=== PATIENT | male | born 1950 | race Caucasian/White ===

== ENCOUNTER → 2024-03-10 13:29 | Outpatient (REF) | payer MEDICARE, SELFPAY ==
[2024-03-10 14:36] LABS: % Eosinophils 3.1 % (0-6); % Immature Granulocytes 0.3 % (0-0.5); % Lymphocytes 20.9 % (20.5-51.1); % Monocytes 14.1 % (1.7-9.3); % Neutrophils 60.6 % (42.2-75.2); Absolute Basophils 0.1 10^3/uL (0-0.2); Absolute Eosinophils 0.2 10^3/uL (0-0.7); Absolute Lymphocytes 1.3 10^3/uL (1.2-3.4); Absolute Monocytes 0.9 10^3/uL (0.1-0.6); Absolute Neutrophils 3.7 10^3/uL (1.4-6.5); Hematocrit 39.2 % (39.0-52.0); Hemoglobin 13.7 g/dL (13.0-18.0); Mean Corp Hgb Conc. 34.9 g/dL (33.0-37.0); Mean Corpuscular Hgb 30.6 pg (27.0-31.0); Mean Corpuscular Volume 87.7 fL (80.0-94.0); Mean Platelet Volume 9.1 fL (7.4-10.4); Nucleated Red Blood Cells % 0 % (-); Platelet Count 265 10^3/uL (130-400); Red Blood Cell Count 4.47 10^6/uL (4.70-6.10); Red Cell Dist. Width 13.1 % (11.5-14.5); White Blood Cell Count 6.1 10^3/uL (4.8-10.8)
[2024-03-10 15:13] LABS: ALT (SGPT) 26 U/L (0-50); AST (SGOT) 38 U/L (17-59); Albumin 4.8 g/dl (3.5-5.0); Alkaline Phosphatase 69 U/L (38-126); Blood Urea Nitrogen 27 mg/dl (9-20); Calcium 9.7 mg/dl (8.4-10.2); Carbon Dioxide 26 mmol/L (22-30); Chloride 95 mmol/L (98-107); Glucose 89 mg/dl (70-99); Potassium 4.6 mmol/L (3.5-5.1); Sodium 128 mmol/L (135-145); Total Bilirubin 0.7 mg/dl (0.2-1.3); Total Protein 7.9 g/dl (6.3-8.2); eGFR > 60.00
[2024-03-14 13:22] LABS: TSH 1.55 uIU/ml (0.47-4.68)
== END ==
LOC: REG 13:29
PROVIDERS: ATTENDING PHYSICIAN Internal Medicine Hematology & Oncology; FAMILY PHYSICIAN Family Medicine
DX: C34.11 Malignant neoplasm of upper lobe, right bronchus or lung (principal); J38.7 Other diseases of larynx
CPT/HCPCS: 36415; 80053; 84443; 85025

== ENCOUNTER → 2024-03-16 09:06 | Outpatient (REF) | payer MEDICARE, SELFPAY | LOC: RAD 09:06 | PROVIDERS: ATTENDING PHYSICIAN Internal Medicine Hematology & Oncology; FAMILY PHYSICIAN Family Medicine | DX: C34.11 Malignant neoplasm of upper lobe, right bronchus or lung (principal); J38.7 Other diseases of larynx | CPT/HCPCS: 71260; Q9967 ==

== ENCOUNTER → 2024-03-31 11:15 | Outpatient (REF) | payer MEDICARE, SELFPAY | LOC: REG 11:15 | PROVIDERS: ATTENDING PHYSICIAN Nurse Practitioner Family | DX: J44.9 Chronic obstructive pulmonary disease, unspecified (principal) | CPT/HCPCS: 71046; 87070; 87205 ==

== ENCOUNTER → 2024-04-03 14:04 | Outpatient (REF) | payer MEDICARE, SELFPAY ==
[2024-04-03 14:33] LABS: % Basophils 0.9 % (0-2); % Immature Granulocytes 0.3 % (0-0.5); % Lymphocytes 17.9 % (20.5-51.1); % Monocytes 11.7 % (1.7-9.3); % Neutrophils 67.2 % (42.2-75.2); Absolute Basophils 0.1 10^3/uL (0-0.2); Absolute Eosinophils 0.1 10^3/uL (0-0.7); Absolute Lymphocytes 1.2 10^3/uL (1.2-3.4); Absolute Monocytes 0.8 10^3/uL (0.1-0.6); Absolute Neutrophils 4.7 10^3/uL (1.4-6.5); Hematocrit 40.2 % (39.0-52.0); Mean Corp Hgb Conc. 34.8 g/dL (33.0-37.0); Mean Corpuscular Hgb 31.2 pg (27.0-31.0); Mean Corpuscular Volume 89.5 fL (80.0-94.0); Mean Platelet Volume 9.1 fL (7.4-10.4); Nucleated Red Blood Cells % 0 % (-); Platelet Count 199 10^3/uL (130-400); Red Blood Cell Count 4.49 10^6/uL (4.70-6.10); Red Cell Dist. Width 13.7 % (11.5-14.5); White Blood Cell Count 6.9 10^3/uL (4.8-10.8)
[2024-04-03 15:04] LABS: ALT (SGPT) 22 U/L (0-50); AST (SGOT) 27 U/L (17-59); Albumin 4.3 g/dl (3.5-5.0); Alkaline Phosphatase 77 U/L (38-126); Blood Urea Nitrogen 25 mg/dl (9-20); Calcium 9.5 mg/dl (8.4-10.2); Carbon Dioxide 25 mmol/L (22-30); Chloride 100 mmol/L (98-107); Glucose 96 mg/dl (70-99); Potassium 4.4 mmol/L (3.5-5.1); Sodium 133 mmol/L (135-145); Total Bilirubin 0.4 mg/dl (0.2-1.3); Total Protein 7.1 g/dl (6.3-8.2); eGFR > 60.00
== END ==
LOC: REG 14:04
PROVIDERS: ATTENDING PHYSICIAN Internal Medicine Hematology & Oncology; FAMILY PHYSICIAN Family Medicine
DX: C34.11 Malignant neoplasm of upper lobe, right bronchus or lung (principal); J38.7 Other diseases of larynx
CPT/HCPCS: 36415; 80053; 85025

== ENCOUNTER 2024-06-18 09:46 | Inpatient (IN) | payer MEDICARE, SELFPAY ==
[2024-06-18] VITALS (10 sets, daily range): BP systolic 86–132; BP diastolic 51–75; BMI 16.7
--- NOTE | 2024-06-18 07:30 | ED.GENMED ---
History of Present Illness
General
Chief Complaint: Change in Mental Status
Source: patient and ambulance crew
Exam Limitations: none
Time Seen by Provider: 06/18/24 07:30
Nursing documentation reviewed up to this point in time: agreed with
History of Present Illness
History of Present Illness:
73 yo male w h/o COPD, Home O2 prn, smoker, BPH, states he's not sure why he's here.
Pt significant other Amy is here: states pt started c/o chest pain 4 days ago and 'something hurt behind his right ear.' Has been complaining for a while about congestion in sinuses and chest with more than usual cough. 3 days ago found pt asleep
(unusual) has been 'very little awake time since.' Sleeping a lot. Pretty out of it compared to his usual.
Pulse ox at home was 80-85 as low as 70's today.
Typically 90% he uses 3L typically
Poor appetite past 3 days.
Lethargic, change in mental states
Past History
Past History
ED Past Medical History: COPD (Home O2) and Psychiatric (anxiety)
Social History
Tobacco: Smoker
Drug: None
Personal: Other ( )
Family History
Family History: Other
Review of Systems
Review of Systems
Allergies reviewed?: Yes
Unable to obtain full review of systems at this time due to: due to acuity
Other source history: family and ambulance crew
All Other Systems: ROS reviewed and negative except as documented in HPI and ROS
Constitutional: Reports fever and fatigue
Respiratory: Reports cough; Denies trouble breathing
Cardiac: Denies chest pain, diaphoresis or syncope
ABD/GI: Reports anorexia; Denies abdominal pain, nausea, vomiting or diarrhea
: Denies dysuria, frequency or difficulty voiding
Musculoskeletal: Reports no symptoms
Skin: Reports no symptoms
Neurological: Reports other (more lethargic, change in mental state); Denies dizzy, headache, weakness or numbness
Phy Exam
Physical Exam
Physical Exam:
GENERAL: No acute distress. A&Ox3.
CONSTITUTIONAL: 102.0 Rectal temp
EYES: PERRL, conjunctivae normal
Neck: Supple
ENMT: moist mucus membranes, Pharynx nl
RESPIRATORY: Regular respirations, nonlabored, lungs clear.
CARDIOVASCULAR: Regular rate and rhythm, no murmurs, no rubs.
GI: Soft, nontender, normal BS
MUSCULOSKELETAL: Moves with ease. Well perfused.
SKIN: Warm, dry, pink
PSYCH: Normal mood and affect. Well kept, interactive and appropriate
NEUROLOGIC: Awake, alert and oriented. No focal neurological deficits
Course
Orders/Labs/Results
Orders:
Orders
06/18/24 07:28
Electrocardiogram (*1) Urgent
Reason for Study: Other
Other Reason for Exam: change of mental status
EKG- Treatment ONCE
06/18/24 07:43
CMP [Comprehensive Metabolic Panel] Urgent
Complete Blood Count/With Diff Urgent
Lactic Acid Urgent
Urinalysis Reflex To Culture Urgent
Date Specimen was Collected: 06/18/24
Time Specimen was Collected: 07:28
Urine Microscopic Reflex Cult Urgent
Venous Blood Gas Urgent
%Oxygen/Room Air: 2 L
06/18/24 07:45
Electrocardiogram (*1) Urgent
Reason for Study: Other
Other Reason for Exam: sepsis
EKG- Treatment ONCE
IV Insert/Care/Rem.- Treatment PRN
Straight cath- Treatment ONCE
0.9% Sodium Chloride 1000 ml [Nss] 1,600 ml IV NOW STA
06/18/24 07:46
CR Chest Portable - 1 View Urgent
Comment:
Reason For Exam: SOB, hypoxia, SIRS
Reason Study Needs to be Portable: Patient Unstable
06/18/24 07:47
Acetaminophen [Tylenol/Feverall] 650 mg RECTAL NOW STA
06/18/24 07:52
Procalcitonin Urgent
PCT Algorithmm Indication: Sepsis
06/18/24 07:53
Troponin I Urgent
06/18/24 07:58
Ipratropium/Albuterol Sulfate [Duoneb] 3 ml INH R NOW ONE
06/18/24 08:31
Electrocardiogram (*1) Urgent
Reason for Study: Abnormal EKG
EKG- Treatment ONCE
06/18/24 09:00
CefTRIAXone [Rocephin] 1,000 mg IV NOW STA
06/18/24 09:24
CARDIOLOGY CONSULT Urgent
Consulting Provider: Tevin Mota
Was physician already notified: Yes
Reason for consult: Questionable Brugada
06/18/24 09:28
COVID-19 Antigen Urgent
Source: Nasal Swab
06/18/24 09:32
Troponin I Urgent
06/18/24 09:38
Admit/Transfer Patient As Directed
Co-Sign Provider:
Level of Care: Inpatient admission
Assign to:: Telemetry
Physician / Group: Dr Head
Diagnosis: pneumonia
Reason for Telemetry: Arrhythmia
Date to Stop Telemetry: 06/21/24
Time to Stop Telemetry: 11:00
Reason for Hospitalization: pte p/w pneumonia/sepsis
Expected length of stay greater than two midnights?: Yes
ELOS- Estimated Length of Stay in days: 2
I certify the patient meets the requirements for IP care: Yes
PRN Pain Medication Management As Directed
May give lesser potent ordered pain med per pt: Yes
preference::
Protocol:: Medication orders for pain may be administered in a
manner that supports deferring to patient preference
when the pt is:
- Requesting an ordered lesser potent pain medication.
Least to most potent pain medications are defined
as: acetaminophen < NSAID < tramadol < opioids
(morphine, oxycodone, hydromorphone).
- Requesting a lesser dose of the same medication IF
ORDERED.
- Requesting a less intrusive route of administration
if both routes are prescribed by the provider (PO <
IV).
06/18/24 09:39
Code Status As Directed
Resuscitation Status: Full Code
06/18/24 09:45
0.9% Sodium Chloride 1000 ml [Nss] 1,000 ml IV 85 mls/hr
06/18/24 Lunch
Regular
At Your Request: Full Participation
Doxycycline [Vibramycin] 100 mg PO Q12
06/18/24 10:47
Bisacodyl [Dulcolax] 10 mg RECTAL A32MUNS PRN
Docusate W/Senna [Senokot-S] 1 tablet PO BIDPRN PRN
Polyethylene Glycol Powder [Miralax] 17 grams PO DAILYPRN PRN
06/18/24 10:47
Activity As Directed
Activity Level: Out of Bed-Early Mobility
Vital Signs As Directed
Frequency: Per unit guidelines
DX Deep Vein Thrombosis Video Routine
06/18/24 11:12
Troponin I Urgent
06/18/24 12:00
Acetaminophen [Tylenol] 650 mg PO Q4HPRN PRN
06/18/24 18:00
Enoxaparin Sodium [Lovenox] 40 mg SC QPM
06/19/24 06:00
Basic Metabolic Panel IN AM
Complete Blood Count/With Diff IN AM
Magnesium IN AM
06/19/24 10:00
CefTRIAXone [Rocephin] 1,000 mg IV Q24H
06/21/24 11:00
DC Protocol for Telemetry ONCE
Abnormal Lab Results
06/18/24 06/18/24 06/18/24
07:43 07:52 07:53
WBC 11.5 H 10^3/uL
(4.8-10.8)
RBC 4.42 L 10^6/uL
(4.70-6.10)
Hct 37.9 L %
(39.0-52.0)
Abs Immat Gran (auto) 0.1 H 10^3/uL
(0-0.05)
Absolute Neuts (auto) 8.8 H 10^3/uL
(1.4-6.5)
Absolute Monos (auto) 1.3 H 10^3/uL
(0.1-0.6)
Immature Gran % 1.0 H %
(0-0.5)
Neutrophils % 76.6 H %
(42.2-75.2)
Lymphocytes % 10.5 L %
(20.5-51.1)
Monocytes % 11.5 H %
(1.7-9.3)
VBG pCO2 49 H mmHg
(35-48)
VBG HCO3 28.3 H mmol/L
(22-27)
Sodium 134 L mmol/L
(135-145)
BUN 28 H mg/dl
(9-20)
Glucose 112 H mg/dl
(70-99)
Troponin I 0.046 H* ng/ml
Procalcitonin 0.62 H ng/ml
(0.0-0.25)
Ur Occult Blood Reflex Trace A
(Negative)
Leukocyte Esterase Rfl Trace A
(Negative)
Urine RBC 3-6 A /HPF
(0-2)
Urine Bacteria (Reflex) Few A
(Negative)
Urine Albumin (Reflex) 1+ A
(Neg - Trace)
SARS-CoV-2 Antigen
06/18/24 06/18/24
09:28 09:32
WBC
RBC
Hct
Abs Immat Gran (auto)
Absolute Neuts (auto)
Absolute Monos (auto)
Immature Gran %
Neutrophils %
Lymphocytes %
Monocytes %
VBG pCO2
VBG HCO3
Sodium
BUN
Glucose
Troponin I 0.046 H* ng/ml
Procalcitonin
Ur Occult Blood Reflex
Leukocyte Esterase Rfl
Urine RBC
Urine Bacteria (Reflex)
Urine Albumin (Reflex)
SARS-CoV-2 Antigen Positive A
(Negative)
06/18/24 07:43
06/18/24 07:43
Vital Signs
Initial and Last Documented VS:
Initial Vital Signs
Temp Pulse Resp BP Pulse Ox
98.2 F 69 18 86/57 88
06/18/24 07:40 06/18/24 07:40 06/18/24 07:40 06/18/24 07:40 06/18/24 07:40
Last Documented Vital Signs
Temp Pulse Resp BP Pulse Ox
97.8 F 67 18 92/59 93
06/18/24 11:00 06/18/24 11:00 06/18/24 11:00 06/18/24 11:00 06/18/24 11:10
Structural Engineering Project Manager consulted with Physician
Structural Engineering Project Manager consulted with physician?: Yes
Name of Physician Consulted: Dari
MDM/Problems Addressed
Differential Diagnosis Includes:
Exacerbation COPD, pneumonia, KS
MDM/Problems Addressed:
73 yo male w h/o COPD, Home O2 prn, smoker, BPH, states he's not sure why he's here.
Pt significant other Amy is here: states pt started c/o chest pain 4 days ago and 'something hurt behind his right ear.' Has been complaining for a while about congestion in sinuses and chest with more than usual cough. 3 days ago found pt asleep
(unusual) has been 'very little awake time since.' Sleeping a lot. Pretty out of it compared to his usual.
Pulse ox at home was 80-85 as low as 70's today.
Typically 90% he uses 3L typically
Poor appetite past 3 days.
Lethargic, appropriately responsive, change in mental state. Pulse ox 88% on room air, placed on 3 L nasal cannula which improved his saturations to 93%
Hypotensive 86/57
Temp 102.0 R by this examiner, lethargic but mostly appropriate to questions, a bit confused. Is aware that he keeps forgetting the name of this hospital he's in, 'I can't believe I can't remember that.'
8:15 AM:
After Tylenol, IVFs and O2, pt is now alert, appropriate. states he takes Azithromycin 250 mg M-W- for over a year. He took 5 of them 2 days ago and 2 yesterday for increased cough past week. BP
VBG: no clinically significant abnormality
CBC with mild leukocytosis otherwise unremarkable
CMP: BUN 28 otherwise unremarkable
Troponin 0.046
EKG #1 @ 8:17 am: Possible Brugada pattern
CXR: RUL pneumonia, COPD
9:15 a.m.
PCN allergy listed: pt states 'nothing too bad' but doesn't remember reaction. OK to trial Ceftriaxone
Plan: Admit to Hospitalist, Cardiology consulted and sent copy of EKG. Dr. Mota says since no syncope, the Brugada pattern (similar to 2020 EKG) can be evaluated as an out pt with EP Cardiology.
Repeat Troponin ordered
9:45 a.m.
Covid positive.
Diagnosis: PNA, COPD, Covid
Hospitalist notified of admission.
*Critical Care Note
Total Time (30-74mins, 75-104mins- exclusive of procedures): Not Applicable
ED Attending Note
-
Portions of this chart may have been created with voice recognition software.� Occasional wrong word or��sound alike� substitutions may have occurred due to the inherent limitations of voice recognition software.
Discharge Plan
Departure
Patient Disposition: Admit
Date of Disposition: 06/18/24
Time of Disposition: :24
Presentation/result/management discussed w/ accepting MD/DO: Hospitalist
Condition: Serious
Covid-19: Confirmed COVID-19
Discharge Problem:
Pneumonia, COVID-19
Interventions
Interventions:
*Risk Screen - Suicide Last Done: 06/18/24 12:22
*General Assessment Last Done: 06/18/24 07:34
*Neglect/Abuse Screening Last Done: 06/18/24 07:34
ED- Fall Risk Assessment Last Done: 06/18/24 08:45
*ED COVID-19 Vaccine History Last Done: 06/18/24 12:22
*Nursing Disposition Last Done: 06/18/24 11:05
ED- Neurological Assessment Last Done: 06/18/24 07:34
ED- Cardiac Assessment Last Done: 06/18/24 11:05
Discharge Date and Time
Discharge Date/Time: 06/18/24 10:55
[2024-06-18] MEDS: TYLENOL/FEVERALL 650 MG RECTAL (07:57)
[2024-06-18] MEDS: NSS 1600 ML IV (07:58)
[2024-06-18 07:59] LABS: Venous Blood Gas B.E. 2.1 mmol/L (-4 to +4); Venous Blood Gas HCO3 28.3 mmol/L (22-27); Venous Blood Gas O2 Sat % 60.9 %; Venous Blood Gas pCO2 49 mmHg (35-48); Venous Blood Gas pH 7.37 (7.32-7.43); Venous Blood Gas pO2 33 mmHg (30-50)
[2024-06-18] MEDS: DUONEB 3 ML INH (08:04)
[2024-06-18 08:09] LABS: Urine Albumin 1+ (Neg - Trace); Urine Bilirubin Negative (Negative); Urine Character Clear (Clear); Urine Color Yellow; Urine Glucose Negative (Negative); Urine Ketone Negative (Negative); Urine Leukocyte Trace (Negative); Urine Nitrite Negative (Negative); Urine Occult Blood Trace (Negative); Urine Urobilinogen Negative (Neg - 1+)
[2024-06-18 08:12] LABS: Lactic Acid 1.1 mmol/L (0.7-2.0)
[2024-06-18 08:13] LABS: ALT (SGPT) 20 U/L (0-50); AST (SGOT) 34 U/L (17-59); Albumin 3.9 g/dl (3.5-5.0); Alkaline Phosphatase 68 U/L (38-126); Blood Urea Nitrogen 28 mg/dl (9-20); Calcium 9.2 mg/dl (8.4-10.2); Carbon Dioxide 28 mmol/L (22-30); Chloride 100 mmol/L (98-107); Estimated Creatinine Clearance 57 ml/min; Glucose 112 mg/dl (70-99); Potassium 4.1 mmol/L (3.5-5.1); Sodium 134 mmol/L (135-145); Total Bilirubin 0.6 mg/dl (0.2-1.3); Total Protein 6.4 g/dl (6.3-8.2); eGFR > 60.00
[2024-06-18 08:19] LABS: Hematocrit 37.9 % (39.0-52.0); Hemoglobin 13.4 g/dL (13.0-18.0); Mean Corp Hgb Conc. 35.4 g/dL (33.0-37.0); Mean Corpuscular Hgb 30.3 pg (27.0-31.0); Mean Corpuscular Volume 85.7 fL (80.0-94.0); Mean Platelet Volume 9.8 fL (7.4-10.4); Platelet Count 145 10^3/uL (130-400); Red Blood Cell Count 4.42 10^6/uL (4.70-6.10); Red Cell Dist. Width 13.6 % (11.5-14.5); White Blood Cell Count 11.5 10^3/uL (4.8-10.8)
[2024-06-18 08:27] LABS: Troponin I 0.046 ng/ml
[2024-06-18 08:30] LABS: Procalcitonin 0.62 ng/ml (0.0-0.25)
[2024-06-18 08:51] LABS: % Basophils 0.3 % (0-2); % Eosinophils 0.1 % (0-6); % Lymphocytes 10.5 % (20.5-51.1); % Monocytes 11.5 % (1.7-9.3); % Neutrophils 76.6 % (42.2-75.2); Absolute Immature Granulocytes 0.1 10^3/uL (0-0.05); Absolute Lymphocytes 1.2 10^3/uL (1.2-3.4); Absolute Monocytes 1.3 10^3/uL (0.1-0.6); Absolute Neutrophils 8.8 10^3/uL (1.4-6.5); Nucleated Red Blood Cells % 0 % (-)
[2024-06-18 09:12] LABS: Urine Bacteria Few (Negative)
[2024-06-18] MEDS: ROCEPHIN 1000 MG IV (09:13)
--- NOTE | 2024-06-18 09:42 | HPS.HSE ---
Addendum entered and electronically signed by Jeffery Head MD 06/18/24 19:50:
Discussed with pulm and we started him on Remdesivir. Will check LFT, renal function and CRP in am.
Original Note:
Family Physician
-
Family Physician: Luiz Barrios
Chief Complaint
-
Cough and congestion
History of Present Illness
Patient is 73 years old male history of COPD, chronic respiratory failure on home oxygen, anxiety, came into the hospital with cough and congestion. Patient has been having some congestion in his sinuses associated with cough over the last several
days. Most of information gathered from patient and significant other at bedside. Patient got sick on and he was having some URI symptoms and also was very tired and could not move around due to excessive fatigue. Patient was also having
some mental status change, more lethargic than usual. He was also having dry cough progressively getting worse over the last several days associated with shortness of breath mostly when doing some activities. Denies chest pain. Patient also
having some chills. Patient having decreased appetite. His significant other check his oxygen levels today while he had the oxygen and also taking it off and the oxygen was in the mid 70s and he was getting worse so decided to come to the hospital
for further evaluation. Denies sick contact but they believe that since he had a cataract surgery back in April and May and follow-up visits maybe he contracted something there. Denies nausea vomiting or diarrhea. Patient does use his oxygen at
home with 3 L but family states that is not continuous but mostly when he is on exertion. He is currently on 4 L of oxygen. In the ER, WBC found 11.5, chest x-ray with right upper lobe opacity suspicious for pneumonia and lungs hyperinflated. He
was referred to hospitalist for further evaluation.
Medical History
Past Medical History
Past Medical History: Reports Other
Additional Past Medical History:
COPD
anxiety
active smoker
right upper lobe spiculated nodule
Past Surgical History: Reports Other (IR lung biopsy 03/17/2023)
Social History
Tobacco: Smoker (3 to 5 cigarettes a day, since age 13)
Alcohol: Former
Living: With Family (Significant other)
Family History
Family History: Not pertinent
Allergies / Home Medications
Allergies reflects when Allergies were last updated in [facility].
Home Medications with original date entered in [facility]
Allergy/Medication List:
Allergies
Allergy/AdvReac Type Severity Reaction Status Date / Time
Penicillins Allergy Unknown Verified 05/05/18 22:08
Home Medications
alprazolam 0.25 mg tablet 1 mg PO QID Mental Health/Anxiety 05/05/18
albuterol sulfate 90 mcg/actuation aerosol inhaler (Proventil HFA) 1 puff inhalation Q4HPRN PRN shortness of breath ##1 06/12/21
doxycycline hyclate 100 mg capsule 100 mg PO BID #20 caps 06/12/21
ipratropium 0.5 mg-albuterol 3 mg (2.5 mg base)/3 mL nebulization soln 3 ml inhalation Q4H PRN shortness of breath ##40 06/12/21
azithromycin 250 mg tablet 250 mg PO MOWEFR Infection 03/15/23
buspirone 15 mg PO QID Mental Health/Anxiety 03/15/23
fluticasone fur. 100 mcg-umeclid 62.5 mcg-vilant 25 mcg inhalat.powder (Trelegy Ellipta) 1 inh inhalation Q24H Lung/breathing issues 03/15/23
gabapentin 100 mg capsule 200 mg PO Q8 Pain 03/15/23
umeclidinium 62.5 mcg-vilanterol 25 mcg/actuation powdr for inhalation (Anoro Ellipta) 1 inh inhalation DAILY Lung/breathing issues 03/17/23
Review of Systems
-
A 12 point ROS was completed and negative except as noted: Yes
Physical Exam
Vital Signs
Vital Signs
Temp Pulse Resp BP Pulse Ox
102 F H 65 32 94/60 93
06/18/24 07:44 06/18/24 09:00 06/18/24 07:45 06/18/24 09:00 06/18/24 09:00
Physical exam:
General: Acutely ill
HEENT: Normocephalic, Atraumatic and Moist Mucous Membranes
Respiratory: Decreased breath sounds bilateral; few rales on the right upper lobe; Negative Wheezes, or Rhonchi
Cardiac: Regular Rhythm and S1/S2
GI: Soft, Nontender and Nondistended
Musculoskeletal: No Clubbing, No Cyanosis and No Edema
Neuro: Awake, Alert and Oriented
Psych: Calm
Physical Exam
General: Other
Laboratory Results
-
06/18/24 07:43
06/18/24 07:43
Laboratory Results
Lactic Acid Cancelled 06/18/24 11:45
Total Bilirubin 0.6 mg/dl (0.2-1.3) 06/18/24 07:43
AST 34 U/L (17-59) 06/18/24 07:43
ALT 20 U/L (0-50) 06/18/24 07:43
Alkaline Phosphatase 68 U/L (38-126) 06/18/24 07:43
Troponin I 0.046 ng/ml H* 06/18/24 07:53
Data Reviewed
-
Diagnostic Radiology: Image Personally Visualized and interpreted
Lab Data: Labs Reviewed by me
Impression/Plan
-
IMPRESSION:
Patient 73 years old male with history of COPD on home oxygen, anxiety, presented to the hospital with cough and shortness of breath consistent with pneumonia. Patient at increased risk of morbidity mortality due to his acute presentation and
comorbidities therefore he will need to be treated in the hospital and managed accordingly.
PLAN:
Acute on chronic hypoxic respiratory failure likely related to pneumonia, COVID-19, cannot rule out COPD contributing:
Antibiotics
Steroids
Incentive spirometry
Bronchodilators
PT OT eval
Sepsis due to pneumonia:
SIRS criteria with fever, tachypnea, leukocytosis, mental status changes, and source of pneumonia
Seen and reviewed chest x-ray by myself and agree with opacity in the right upper lobe
IV fluids
IV Rocephin and oral doxycycline
Follow-up cultures
Check sputum culture
Check strep and Legionella
Speech therapy evaluation for swallow eval
PT OT eval
COVID-19:
Start him on IV dexamethasone 6 mg daily
Monitor inflammatory markers, CRP
Incentive spirometry
Droplet and contact precautions
Elevated troponin due to non-ischemic myocardial injury due to worsening hypoxia and sepsis:
monitoring analyst
Trend troponin
No chest pain
Toxic metabolic encephalopathy due to sepsis:
Monitor mental status closely
Brugada syndrome:
Patient incidentally found Brugada but looking back in his records he also had the same EKG pattern of Brugada back in 2020.
Cardiology consulted in the ED
Cardiology felt that since no evidence of syncope at the moment, he can be referred to outpatient EPS for further evaluation.
Keep electrolytes with potassium above 4 and magnesium above 2
Cardiac monitoring for now
COPD:
Bronchodilators in the form of inhalers QID (unable to do Nebs due to Covid unless absolutely required)
No strong need for systemic steroids from COPD perspective but given COVID-19 positive will start him on steroids and will cover both.
Anxiety:
Continue benzodiazepines
Smoker:
Nicotine patch
DVT prophylaxis:
Lovenox 40 mg SQ daily
CODE STATUS:
Full code
Total time spent on today's encounter was 75 minutes which included time spent in counseling the patient/family regarding diagnosis and treatment plan as listed above, goals of care, and symptom management. Case was discussed with nursing staff,
specialists, and care coordinators/case management. All labs and imaging personally reviewed by me. Remainder the time spent in detailed review of previous records, lab data, imaging, and other medical provider documentation.
[2024-06-18 09:51] LABS: COVID-19 Antigen Positive (Negative)
[2024-06-18 10:03] LABS: Troponin I 0.046 ng/ml
--- NOTE | 2024-06-18 11:25 | CON.PUL ---
Consultation
Consultation Request
Date/Time Consultation Requested: 06/18/2024 - 1024
Date/Time Consultation Performed: 06/18/2024 - 1123
Requesting Provider: Dr. Head
Performing Provider: Dr. Gomes
Reason for Consultation: PNA
Medical History
-
Chief Complaint: Confusion with poor PO intake/Chest congestion
History of Present Illness:
73-year-old male active smoker with past medical history of severe COPD,Right upper lobe squamous cell carcinoma (diagnosed via CT-guided biopsy on 03/17/2023), pulmonary cachexia, mild restrictive lung disease (post-BD FVC: 2.45 L/63% via spirometry
from 03/20/2024), history of scarlet fever, anxiety, and history of chronic bronchitis who presents with 3 days of altered mental status and poor PO intake. Initial vitals in the ER showed he was febrile to 98.2 �F, pulse rate 69, respiratory rate
18, BP 86/57 and saturating 88% on room air. He was found to be febrile upon rectal temperature to 102 �F. Initial labs showed WBC 11.5, blood gas pH 7.37, pCO2 49, serum sodium 134, troponin 0.046, procalcitonin 0.62, urinalysis with trace
leukocyte esterase, and COVID-19 antigen was positive. CXR obtained showing right upper lobe airspace opacity suspicious for pneumonia. He was given ceftriaxone, DuoNebs, Tylenol and IVF with 1.6 L of NS 0.9%. He was admitted to the hospitalist
service and pulmonary service consulted for additional management/recommendations.
When I saw the patient he was in bed, at bedside. All questions were answered. He continues to smoke and is not interested in stopping. He is currently on 4 L/min nasal cannula breathing comfortably. He uses 3 L/min at home prn SOB.
According to the , he started having symptoms this past Wednesday with chest pain/chest congestion and symptoms worsened the next day with excessive sleepiness to the point where she could not arouse him from sleep. Today, he feels much better,
is much more awake, talking & answering my questions appropriately. He denies chest pain, headache, abdominal pain, fevers or chills.
Of note patient follows with us in the office with Dr. Brasher, last office visit on 03/20/2024. He follows with COPD and is continuing to smoke. Respiratory symptoms have been worsening over the last 3 months with severe shortness of breath at
times. He has a productive cough with small amounts of white/yellow sputum and has difficulty getting the phlegm out. Also occasional wheezing and chest tightness. He has been using Trelegy and Anoro every other day and using the rescue inhaler 3
times a day and also using chronic azithromycin TIW. 6 MWT done at that office visit showed he needed no oxygen. A 9-day course of prednisone was started at that time to help with his shortness of breath as well as a course of doxycycline.
Pulmonary rehab was discussed however the patient wants to hold off as he was busy with work. He does follow up with oncology for his history of lung squamous of carcinoma. He also has a smoker's cough/chronic bronchitis and he was told his lungs
he continues to smoke he will continue to cough. Last full PFT in June 2023 showing moderate COPD with very severe gas exchange capacity defect (DLco: 24% predicted). Last spirometry on 03/20/2024 showed severe COPD with post-BD FEV1: 39%
predicted/1.09 L.
PMHx: History of RUL lung cancer s/p XRT, history of chronic bronchitis, severe COPD on home oxygen, restrictive lung disease, cachexia, smoker's cough, tobacco use disorder, anxiety, history of scarlet fever, history of pneumonia, history of
chickenpox, history of measles/mumps
PSHx: Right lung biopsy (March 2023)
Past Medical History
Past Medical History: Other (Above as per HPI)
Past Surgical History: Other (Above as per HPI)
Social History
Tobacco: Smoker (0.25 PPD since age 13)
Alcohol: Former
Drug: None
Personal: Other (Significant other)
Living: With Family
Family History
Family History: Cancer (Mother: Metastatic cancer (unknown type))
Allergies / Home Medications
Allergies
Allergy/AdvReac Type Severity Reaction Status Date / Time
Penicillins Allergy Unknown Verified 05/05/18 22:08
Home Medications
�Medication �Instructions �Recorded �Confirmed �Last Taken �Type
alprazolam 0.25 mg tablet 1 mg PO QID Mental Health/Anxiety 05/05/18 03/17/23 03/15/23 History
albuterol sulfate 90 mcg/actuation 1 puff inhalation Q4HPRN PRN 06/12/21 03/15/23 Unknown Rx
aerosol inhaler (Proventil HFA) shortness of breath ##1
doxycycline hyclate 100 mg capsule 100 mg PO BID #20 caps 06/12/21 03/17/23 03/17/23 Rx
ipratropium 0.5 mg-albuterol 3 mg 3 ml inhalation Q4H PRN shortness 06/12/21 03/17/23 Unknown Rx
(2.5 mg base)/3 mL nebulization of breath ##40
soln
azithromycin 250 mg tablet 250 mg PO MOWEFR Infection 03/15/23 03/17/23 03/17/23 History
buspirone 15 mg PO QID Mental Health/Anxiety 03/15/23 03/17/23 03/17/23 History
fluticasone fur. 100 mcg-umeclid 1 inh inhalation Q24H 03/15/23 03/17/23 03/15/23 History
62.5 mcg-vilant 25 mcg Lung/breathing issues
inhalat.powder (Trelegy Ellipta)
gabapentin 100 mg capsule 200 mg PO Q8 Pain 03/15/23 03/17/23 03/17/23 History
umeclidinium 62.5 mcg-vilanterol 1 inh inhalation DAILY 03/17/23 03/17/23 03/17/23 History
25 mcg/actuation powdr for Lung/breathing issues
inhalation (Anoro Ellipta)
Review of Systems
-
History Source: Patient
All other systems: Negative unless noted
Vitals / Labs / Diagnostic Testing
Vital Signs
Temp Pulse Resp BP Pulse Ox
97.8 F 67 18 92/59 93
06/18/24 11:00 06/18/24 11:00 06/18/24 11:00 06/18/24 11:00 06/18/24 11:10
Lab Data
06/18/24 07:43
06/18/24 07:43
Diagnostic Testing:
Physical Exam
-
HEENT: Normocephalic and Anicteric
Cardiovascular: S1/S2
Respiratory: Wheeze (negative), Rales (Negative), Rhonchi (Negative), Non-Labored Respirations and Other (Reduced breath sounds bilaterally)
GI: Soft, Non Distended, Non Tender and Normal Bowel Sounds
Neurology: Awake, Alert and Tremors (Negative)
Skin: Warm and Dry
General: Respiratory Distress (negative), Comfortable, Chills (negative) and Sweats (negative)
Assessment
-
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
via spirometry from 03/20/2024), history of scarlet fever, anxiety, and history of chronic bronchitis who presents with 3 days of altered mental status and poor PO intake. Initial vitals in the ER showed he was febrile to 98.2 �F, pulse rate 69,
respiratory rate 18, BP 86/57 and saturating 88% on room air. He was found to be febrile upon rectal temperature to 102 �F. Initial labs showed WBC 11.5, blood gas pH 7.37, pCO2 49, serum sodium 134, troponin 0.046, procalcitonin 0.62, urinalysis
with trace leukocyte esterase, and COVID-19 antigen was positive. CXR obtained showing right upper lobe airspace opacity suspicious for pneumonia. He was given ceftriaxone, DuoNebs, Tylenol and IVF with 1.6 L of NS 0.9%. He was admitted to the
hospitalist service and pulmonary service consulted for additional management/recommendations.
Chronic conditions PAINT TESTER: History of RUL lung cancer s/p XRT, history of chronic bronchitis, severe COPD on home oxygen, restrictive lung disease, cachexia, smoker's cough, tobacco use disorder, anxiety, history of scarlet fever, history of pneumonia,
history of chickenpox, history of measles/mumps
Impression:
#Suspected right upper lobe pneumonia in the setting of COVID-19 positive status (SARS-Cov-2 antigen positive today)
- Unclear if this is truly a right upper lobe pneumonia or just postradiation changes
#COPD exacerbation due to above
#Emphysema
#Active tobacco use
#Elevated troponin
#Hyponatremia (mild)
#History of RUL non-small cell lung cancer (squamous of carcinoma) s/p XRT - follows with [place]
Plan:
- Continue with antibiotics with ceftriaxone/doxycycline
- If patient's chest congestion and malaise do not improve over the next 1-2 days, reasonable to check CT chest at that time given CXR shows coarsening of right upper lobe which could be postradiation changes
- In the setting of elevated procalcitonin of 0.68 with normal creatinine, it is safe to assume that he does have an active pneumonia
- Continue with albuterol QID with spiriva; prn albuterol for breakthrough symptoms
- Continue Decadron and wean as tolerated � currently on 6mg IV q24hr
- Unclear if patient would improve with Paxlovid versus remdesivir; check inflammatory markers
- Given that patient has severe COPD, it is reasonable to start Remdesivir
- Maintain SpO2 >88-94% with supplemental O2 as needed
- Incentive spirometer encouraged
- Nicotine patch
- Trend troponin level until begins to downtrend
- Trend serum Na level with goal 135-145
- Replete electrolytes with K>4, Mg>2
- Maintain euglycemia with goal BG >100 and <180
- DVT ppx
Patient follows with us in the [facility] office with last visit with Dr. Brasher on 03/20/2024. Patient will follow-up with Dr. Brasher again following discharge.
Pulmonary service will continue to follow along.
Total time spent today was 55 minutes for this encounter. Time includes reviewing laboratory test/imaging results, reviewing pertinent medical records, obtaining and reviewing medical history, performing an appropriate exam, ordering medications,
tests and procedures. Time also includes documentation of this encounter, coordinating patient care and communicating with other healthcare professionals. Total time does not include separately billed tests performed on this date of service.
Data:
CXR 06/18/2024:
Right upper lobe airspace opacity, suspicious for pneumonia.
The lungs are mildly hyperinflated, likely sequelae of COPD.
[2024-06-18] MEDS: NSS 1000 IV (11:39)
[2024-06-18] MEDS: VIBRAMYCIN 100 MG PO ×2 (11:39→20:05)
[2024-06-18] MEDS: DECADRON 6 MG IV (11:40)
[2024-06-18] MEDS: NICODERM TRANSDERMAL 14 MG TRANSDERM (12:50)
[2024-06-18] MEDS: SPIRIVA RESPIMAT 2.5 MCG INH (12:51)
[2024-06-18] MEDS: ProAIR HFA INHALER INH (12:51)
--- NOTE | 2024-06-18 14:29 | CM ---
Reviewed the chart notes and spoke with the patient via telephone due to Covid + status. The patient resides with his significant other in a two story home with three steps to enter. The patient reports having home O2, provider unknown. The
patient reports no VN or SNF in the past. The patient confirmed his [facility] of choice [facility]. CM continues to be available to patient/family and is monitoring medical plan for needs at discharge.
Plan: Discharge plans will depend on the patient's progress.
[2024-06-18] MEDS: ProAIR HFA INHALER 2 PUFF INH ×2 (15:14→20:36)
[2024-06-18] MEDS: NSS 500 IV (16:04)
--- NOTE | 2024-06-18 16:43 | PTOTSP ---
Speech Language Pathology Evaluation
73M with admission for AMS and COVID p/w clinical s/s of a grossly functional oropharyngeal swallow. Aspiration risk is increased 2/2 current COVID infection with CXR suspicious for PNA, and multiple comorbidities (i.e. COPD w/ home O2 PRN). No
overt s/s of aspiration or penetration demonstrated with PO trials this date.
Recommend:
1. Regular solids, thin liquids
2. Meds as tolerated
3. Aspiration precautions
4. SCREENING REPRESENTATIVE service will continue to follow x1 to assess diet level tolerance
[2024-06-18] MEDS: LOVENOX 40 MG SC (18:03)
[2024-06-18] MEDS: VEKLURY 250 MG IV (20:05)
[2024-06-18] MEDS: NSS 30 IV (20:05)
[2024-06-18] MEDS: XANAX 0.25 MG PO (23:16)
[2024-06-18] MEDS: BUSPAR 15 MG PO (23:17)
[2024-06-19] VITALS (8 sets, daily range): BP systolic 95–143; BP diastolic 50–78; PULSE 67; O2SAT 91; BMI 16.7
--- NOTE | 2024-06-19 00:59 | W.PN.UPDATE ---
Update Note
Progress Note Update
Shortly after REM-D breakfast bar attendant noted HR dipping to 40s. Baseline HR 50-60s. Asymptomatic, but will hold further doses for now as Rem-d can cause bradycardia.
[2024-06-19 06:12] LABS: Troponin I 0.064 ng/ml
[2024-06-19 06:32] LABS: ALT (SGPT) 21 U/L (0-50); AST (SGOT) 36 U/L (17-59); Albumin 3.2 g/dl (3.5-5.0); Alkaline Phosphatase 63 U/L (38-126); Blood Urea Nitrogen 19 mg/dl (9-20); Calcium 8.3 mg/dl (8.4-10.2); Carbon Dioxide 20 mmol/L (22-30); Chloride 110 mmol/L (98-107); Direct Bilirubin 0.3 mg/dl (0.0-0.4); Estimated Creatinine Clearance 85 ml/min; Glucose 125 mg/dl (70-99); LDH 284 U/L (120-246); Magnesium 1.8 mg/dl (1.6-2.3); Potassium 4.1 mmol/L (3.5-5.1); Sodium 137 mmol/L (135-145); Total Bilirubin 0.4 mg/dl (0.2-1.3); Total Protein 5.8 g/dl (6.3-8.2); eGFR > 60.00
--- NOTE | 2024-06-19 06:36 | W.PN.PUL3 ---
Addendum entered and electronically signed by Nestor Miller MD 06/19/24 08:51:
agree with holding Rem-D given possibly associated bradycardia
Original Note:
Today's Communication / Plan
-
Continue Decadron
Continue antibiotics for possible commune acquired pneumonia
No change in IV steroid dose
Remdesivir continues
Wean oxygen
DVT prophylaxis
Assessment
-
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
via spirometry from 03/20/2024), history of scarlet fever, anxiety, and history of chronic bronchitis who presents with 3 days of altered mental status and poor PO intake. Initial vitals in the ER showed he was febrile to 98.2 �F, pulse rate 69,
respiratory rate 18, BP 86/57 and saturating 88% on room air. He was found to be febrile upon rectal temperature to 102 �F. Initial labs showed WBC 11.5, blood gas pH 7.37, pCO2 49, serum sodium 134, troponin 0.046, procalcitonin 0.62, urinalysis
with trace leukocyte esterase, and COVID-19 antigen was positive. CXR obtained showing right upper lobe airspace opacity suspicious for pneumonia. He was given ceftriaxone, DuoNebs, Tylenol and IVF with 1.6 L of NS 0.9%. He was admitted to the
hospitalist service and pulmonary service consulted for additional management/recommendations.
Chronic conditions MACARONI MAKER: History of RUL lung cancer s/p XRT, history of chronic bronchitis, severe COPD on home oxygen, restrictive lung disease, cachexia, smoker's cough, tobacco use disorder, anxiety, history of scarlet fever, history of pneumonia,
history of chickenpox, history of measles/mumps
Impression:
#Suspected right upper lobe pneumonia in the setting of COVID-19 positive status (SARS-Cov-2 antigen positive today)
- Unclear if this is truly a right upper lobe pneumonia or just postradiation changes
#COPD exacerbation due to above
#Emphysema
#Active tobacco use
#Elevated troponin
#Hyponatremia (mild)
#History of RUL non-small cell lung cancer (squamous of carcinoma) s/p XRT - follows with [place]
Plan/recommendations
At this time, patient appears to be comfortable. Remains on 4 L. No documented saturation noted per records
Chest exam is clear. This appears to be improved based on prior correspondence
Chest x-ray 06/18/2024 reviewed, vague bilateral infiltrates, cannot rule out right upper lobe pneumonia
Mildly positive procalcitonin, mildly positive troponin noted
Moving forward
Continue with albuterol QID with spiriva; prn albuterol for breakthrough symptoms
Continue Decadron and wean as tolerated � currently on 6mg IV q24hr, no changes for now
Continue Remdesivir for now
Maintain SpO2 >88-94% with supplemental O2 as needed
Incentive spirometer encouraged
Nicotine patch
Continue antibiotics
Wean oxygen as able
DVT ppx: Remains on Lovenox
Patient follows with us in the [facility] office with last visit with Dr. Brasher on 03/20/2024. Patient will follow-up with Dr. Brasher again following discharge.
Pulmonary service will continue to follow along.
Data:
CXR 06/18/2024:
Right upper lobe airspace opacity, suspicious for pneumonia.
The lungs are mildly hyperinflated, likely sequelae of COPD.
Subjective Data
-
Date of Service:
Date of Service: June 19, 2024
Subjective:
Patient seen and examined earlier this morning. Sleeping comfortably on nasal cannula. Did not awaken during exam. Family at bedside also sleeping, did not awaken during exam
Objective Data
Data Reviewed
Vital Signs / I&O / Oxygen:
Vital Signs
Temp Pulse Resp BP Pulse Ox
97.6 F 51 18 143/78 94
06/19/24 03:10 06/19/24 03:10 06/19/24 03:10 06/19/24 03:10 06/19/24 03:10
Intake and Output
06/17/24 06/18/24 06/19/24
06:59 06:59 06:59
Intake Total 240 / 240
Balance 240 / 240
SaO2 94
Nasal Cannula flow liters per 4
minute
Physical Exam
General: Comfortable (Cachectic)
HEENT: Normocephalic
Cardiovascular: S1-S2, Regular Rhythm, Murmur (n) and Rub (n)
Respiratory: Wheeze (n), Crackles (n), Rhonchi (n), Non-Labored Respirations and Stridor (n)
GI: Soft, Non Distended and Non Tender
Neurology: Other (Sleeping comfortably)
Skin: Cyanosis (n) and Rash (n)
Labs/Micro/Reports
Lab Data
06/19/24 05:34
Microbiology
06/18/24 09:50 Urine Legionella Urinary Antigen - Final
Negative for Legionella pneumophila Serogroup 1 antigen.
A negative result does not rule out the possiblity of
Legionella infection due to other serogroups or species of
Legionella. Clinical correlation is recommended.
06/18/24 09:50 Urine Streptococcus pneumoniae Antigen (M - Final
Negative for Streptococcus pneumoniae antigen.
A negative result does not exclude infection with
Streptococcus pneumoniae. Clinical correlation is
recommended.
[2024-06-19] MEDS: ProAIR HFA INHALER 2 PUFF INH ×4 (07:49→19:36)
[2024-06-19] MEDS: SPIRIVA RESPIMAT 2.5 MCG 2 PUFF INH (07:49)
--- NOTE | 2024-06-19 07:59 | W.PN.HOSP.TC ---
Addendum entered and electronically signed by Anshul Rico MD 06/19/24 08:58:
apparently pt is on daily Flomax 0.8 mg, not listed, will order
Original Note:
Today's Communication/Plan
-
continue to hold Remdesivir
continue abx
await labs, including CRP
Assessment / Plan
Assessment / Plan
Acute on chronic hypoxic respiratory failure likely related to pneumonia, COVID-19, cannot rule out COPD contributing:
as per Amy, was never vaccinated
Antibiotics
Steroids
Incentive spirometry
Bronchodilators
PT OT eval
Oxygen supplement
baseline home oxygen is 3 L/M, currently on 4 L/M
Bradycardia during night
Remdesivir placed on hold, call placed and discussed with Dr. Miller, will continue on hold and not resume
Hx of RUL SCC dx 03/17/2023
completed XRT ~1 yr ago
Sepsis due to pneumonia:
SIRS criteria with fever, tachypnea, leukocytosis, mental status changes, and source of pneumonia
Seen and reviewed chest x-ray by myself and agree with opacity in the right upper lobe
IV fluids
IV Rocephin and oral doxycycline
Follow-up cultures
Check sputum culture
Check strep and Legionella
Speech therapy evaluation for swallow eval
PT OT eval
COVID-19:
Started on IV dexamethasone 6 mg daily
Monitor inflammatory markers, CRP
Incentive spirometry
Droplet and contact precautions
Elevated troponin due to non-ischemic myocardial injury due to worsening hypoxia and sepsis:
cardiac monitor
Trend troponin
No chest pain
Toxic metabolic encephalopathy due to sepsis:
Monitor mental status closely
Brugada syndrome:
Patient incidentally found Brugada but looking back in his records he also had the same EKG pattern of Brugada back in 2020.
Cardiology consulted in the ED
Cardiology felt that since no evidence of syncope at the moment, he can be referred to outpatient EPS for further evaluation.
Keep electrolytes with potassium above 4 and magnesium above 2
Cardiac monitoring for now
COPD:
Bronchodilators in the form of inhalers QID (unable to do Nebs due to Covid unless absolutely required)
No strong need for systemic steroids from COPD perspective but given COVID-19 positive will start him on steroids and will cover both.
Pt is still smoking, but smaller quantity than used to smoke
Anxiety:
Continue benzodiazepines
Smoker:
Nicotine patch
DVT prophylaxis:
Lovenox 40 mg SQ daily
CODE STATUS:
Full code
reviewed with sig Amy morris in room
complex situation
will request input from ID regarding ?Paxlovid
Anticipated Discharge: > 48 hours
Subjective/Interval History
-
Date of Service: June 19, 2024
noncommunicative, laying on side with frequent coughs
Objective Data
-
Labs:
Laboratory Results
06/19/24 06/19/24
05:34 06:09
WBC Cancelled Pending
Hgb Cancelled Pending
Hct Cancelled Pending
Plt Count Cancelled Pending
Sodium 137
Potassium 4.1
Chloride 110 H
Carbon Dioxide 20 L
BUN 19
Creatinine 0.5 L
Glucose 125 H
Calcium 8.3 L
Total Bilirubin 0.4
AST 36
ALT 21
Alkaline Phosphatase 63
Vital Signs:
Vital Signs
Temp Pulse Resp BP Pulse Ox
97.6 F 51 18 143/78 94
06/19/24 03:10 06/19/24 03:10 06/19/24 03:10 06/19/24 03:10 06/19/24 03:10
I&O
06/18/24 06/19/24 06/20/24
06:59 06:59 06:59
Intake Total 240 / 240
Balance 240 / 240
Review of Systems
-
History Source: Family (sig other Amy in room)
Constitutional: Denies Fever (T 102 06/18 07:44)
Respiratory: Reports Cough
Neuro: Reports Weakness
Physical Exam
-
General: Well Developed, Well Nourished, No Apparent Distress and Comfortable; Negative Respiratory Distress or Conversant (noncommunicative)
HEENT: Normocephalic, Atraumatic, Nose Appears Normal and Ears Appear Normal; Negative Oxygen
Respiratory: Clear to Auscultation (with rhonchus cough), Non Labored Respirations and Chest Tubes (R on waterseal); Negative Accessory Resp Muscle Use
Cardiac: Regular Rhythm and S1/S2
GI: Soft, Nontender, Nondistended and Normal Bowel Sounds
Skin: Warm and Dry
Neuro: Awake (letargic, noncommunicative) and Nonfocal/Grossly Intact
Psych: Calm and Intact Judgement/Insight
[2024-06-19] MEDS: VIBRAMYCIN 100 MG PO ×2 (08:46→23:03)
[2024-06-19] MEDS: NICODERM TRANSDERMAL 14 MG TRANSDERM (08:46)
[2024-06-19] MEDS: BUSPAR 15 MG PO (08:47)
[2024-06-19] MEDS: D5/0.45%NSS with KCL 10 MEQ 1000 IV (08:47)
[2024-06-19] MEDS: ROCEPHIN 1000 MG IV (08:52)
[2024-06-19] MEDS: STERILE WATER FOR INJECTION 10 ML IV (08:52)
[2024-06-19] MEDS: DECADRON 6 MG IV (10:24)
[2024-06-19] MEDS: FLOMAX 0.8 MG PO (10:24)
--- NOTE | 2024-06-19 10:24 | CON.ID ---
Consultation
-
Date/Time Consultation Requested: June 19, 2024 0830
Date/Time Consultation Performed: June 19, 2024 1025
Requesting Provider: Dr. Anshul Rico
Performing Provider: Dr. Yvette Myers
Reason for Consultation: COVID. Bradycardic on Remdesivir
Chief Complaint / Past History
Chief Complaint
Cough
History of Present Illness
History obtained from the medical records since patient currently somewhat confused and very poor historian. He is a 73-year-old male with history of lung cancer status post radiation, severe COPD on chronic 3 L of home O2 with activity, tobacco
use disorder who started feeling unwell the evening of June 14 with sinus congestion, cough. He continued to feel unwell over the next several days with shortness of breath, lethargy, fatigue, poor appetite. His noted his oxygen was in the
70s. He came to the ER on June 18. He was febrile temperature 102. O2 sat in the 88%. White count 11.5. Procalcitonin 0.62. CRP 157. He was started on dexamethasone, remdesivir, ceftriaxone and doxycycline. However after remdesivir
infusion, his heart rate dropped to the 40s. Remdesivir discontinued. Patient reports no COVID-vaccine in the past 6 months. He denies ill contacts. He complains of cough nonproductive. He feels very weak.
Past History
Additional Past Medical History:
Severe COPD
Chronic hypoxemic respiratory failure on home 02 3L with activity
Tobacco use disorder
BPH
Anxiety
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
Allergy History:
Penicillins Allergy (Verified 05/05/18 22:08)
Unknown
Medications Reviewed: Yes
Current Antibiotics:
Ceftriaxone d2
doxycycline d2
Remdesivir d2
Social History
Tobacco: Smoker
Alcohol: Former
Drug: None
Family History
Family History: Not Pertinent
Review of Systems
Review of Systems
General: Fever, Chills and Change in Appetite
HEENT: Sinus Problems; Negative Headache or Pharyngitis
Cardiovascular: Negative Chest Pain
Respiratory: Dyspnea and Cough; Negative Sputum Production
Gasteroenterology: Negative Nausea or Vomiting
Endocrine: Weakness and Fatigue
Neurological: Negative Dizziness
All systems: All other systems were reviewed and were negative
Vital Signs
Selected Entries
06/18/24
07:44
Temp max 102 F H
Temp Pulse Resp BP Pulse Ox
97.2 F 60 16 131/67 91
06/19/24 07:20 06/19/24 08:02 06/19/24 08:02 06/19/24 07:20 06/19/24 08:02
Physical Exam
Physical Exam
Constitutional: Non-toxic
Eyes: No Conjunctival Hemorrhage and Sclera Anicteric
Cardiovascular: Regular Rate and S1/S2
Pulmonary: Clear
Gastrointestinal: Soft, Non Tender, Non Distended and Normal Bowel Sounds
Genito-Urinary: Negative CVA Tenderness
Extremities: Negative Edema
Neurological: Other (slow cognitive response)
Lab / Diagnostic Study Results
06/19/24 05:34
Abs Immat Gran (auto) Cancelled 06/19/24 05:34
Absolute Neuts (auto) Cancelled 06/19/24 05:34
Absolute Lymphs (auto) Cancelled 06/19/24 05:34
Absolute Monos (auto) Cancelled 06/19/24 05:34
Absolute Basos (auto) Cancelled 06/19/24 05:34
Immature Gran % Cancelled 06/19/24 05:34
Neutrophils % Cancelled 06/19/24 05:34
Lymphocytes % Cancelled 06/19/24 05:34
Monocytes % Cancelled 06/19/24 05:34
Eosinophils % Cancelled 06/19/24 05:34
Basophils % Cancelled 06/19/24 05:34
Lactic Acid Cancelled 06/18/24 11:45
C-Reactive Protein 156.60 mg/L (0.0-10.00) H 06/19/24 05:34
Procalcitonin 0.62 ng/ml (0.0-0.25) H 06/18/24 07:52
Ur Squamous Epith Cells 3-5 /LPF (Few) 06/18/24 07:43
Microbiology Results
Micro:
06/18/24 09:50 Legionella Urinary Antigen - Final
Urine Negative for Legionella pneumophila Serogroup 1 antigen.
A negative result does not rule out the possiblity of
Legionella infection due to other serogroups or species of
Legionella. Clinical correlation is recommended.
Streptococcus pneumoniae Antigen (M - Final
Negative for Streptococcus pneumoniae antigen.
A negative result does not exclude infection with
Streptococcus pneumoniae. Clinical correlation is
recommended.
06/18/24 CXR: Right upper lobe airspace opacity, suspicious for pneumonia.
Assessment / Plan
# Moderate COVID infection
-Acute on chronic hypoxemic respiratory insufficiency
- Developed bradycardia on Remdesivir
- Continue dexamethasone
- Start Paxlovid x 5d
- Decreased buspirone dose by 1/2 (7.5mg qid) while on Paxlovid.
- Hold tamsulosin while on Paxlovid.
- Follow O2 status
- Continue COVID isolation through 06/25/24.
# Suspect superimposed RUL bacterial PNA
- Acute on chronic hypoxemic respiratory insufficiency
- Continue ceftriaxone and doxycycline (d2)
# Fever/leukocytosis
- due to COVID, PNA
-Trend temps/wbc
# Severe COPD on chronic 3L 02
# Active tobacco use disorder
- Pt not interested in smoking cessation.
[2024-06-19] MEDS: ROBITUSSIN 200 MG PO (10:38)
[2024-06-19] MEDS: PAXLOVID 2X150 MG-100 MG DOSE PACK 1 DOSE PO ×2 (12:00→23:03)
[2024-06-19 12:25] LABS: Hematocrit 38.6 % (39.0-52.0); Hemoglobin 13.9 g/dL (13.0-18.0); Mean Corpuscular Hgb 30.8 pg (27.0-31.0); Mean Corpuscular Volume 85.4 fL (80.0-94.0); Mean Platelet Volume 10.5 fL (7.4-10.4); Platelet Count 151 10^3/uL (130-400); Red Blood Cell Count 4.52 10^6/uL (4.70-6.10); Red Cell Dist. Width 13.4 % (11.5-14.5); White Blood Cell Count 13.9 10^3/uL (4.8-10.8)
[2024-06-19 13:03] LABS: % Basophils 0.4 % (0-2); % Immature Granulocytes 0.9 % (0-0.5); % Lymphocytes 8.6 % (20.5-51.1); % Monocytes 8.3 % (1.7-9.3); % Neutrophils 81.8 % (42.2-75.2); Absolute Basophils 0.1 10^3/uL (0-0.2); Absolute Immature Granulocytes 0.1 10^3/uL (0-0.05); Absolute Lymphocytes 1.2 10^3/uL (1.2-3.4); Absolute Monocytes 1.2 10^3/uL (0.1-0.6); Absolute Neutrophils 11.4 10^3/uL (1.4-6.5); Nucleated Red Blood Cells % 0 % (-)
[2024-06-19] MEDS: BUSPAR 7.5 MG PO ×3 (13:22→23:03)
--- NOTE | 2024-06-19 14:00 | CM ---
CM spoke with patient significant other and she confirmed plan is for patient to return home with home O2 and she would be open to patient having home VN if needed. Pending PT/OT assessment. CM will continue to follow for discharge planning needs.
Plan;home with no needs vs home with VN vs SNF
[2024-06-19] MEDS: LOVENOX 40 MG SC (18:06)
[2024-06-19] MEDS: PAXLOVID 2X150 MG-100 MG DOSE PACK PO (20:47)
[2024-06-19] MEDS: BUSPAR PO (20:48)
[2024-06-19] MEDS: VIBRAMYCIN PO (20:48)
--- NOTE | 2024-06-19 22:57 | RESPNOTE ---
ABG draw attempted x3 without success. Pt with bradycardia and hypotension noted. Nurse Practitioner aware that sample was not obtained. Pt showing slight improvement in mental status. INSIDE SALES REPRESENTATIVE at bedside to assess pt status. Will continue to monitor pt
status.
--- NOTE | 2024-06-19 23:00 | PTCARENOTE ---
Patient's significant other was concerned that patient appeared to be more lethargic and withdrawn; patient was not answering questions; he would turn his head to acknowledge that he was being spoken to but was non-verbal; VSS; 93% 4L; Pinky Guerra,
Skyler JIM notified and came up to see patient; ABG was ordered but RT was unable to obtain after multiple attempts; patient did eventually return to his baseline; will continue to closely monitor.
[2024-06-20] VITALS (7 sets, daily range): BP systolic 117–144; BP diastolic 67–84
[2024-06-20] MEDS: D5/0.45%NSS with KCL 10 MEQ 1000 IV (03:29)
[2024-06-20] MEDS: ProAIR HFA INHALER 2 PUFF INH ×4 (07:13→20:12)
[2024-06-20] MEDS: SPIRIVA RESPIMAT 2.5 MCG 2 PUFF INH (07:13)
--- NOTE | 2024-06-20 07:30 | W.PN.HOSP.TC ---
Today's Communication/Plan
-
CT scan of the head. Continue Paxlovid. Continue steroids. Continue IV antibiotics.
Assessment / Plan
Assessment / Plan
Physical exam:
General: Acutely ill
HEENT: Normocephalic, Atraumatic and Moist Mucous Membranes
Respiratory: Clear to Auscultation; Negative Wheezes, Rales or Rhonchi
Cardiac: Regular Rhythm and S1/S2
GI: Soft, Nontender and Nondistended
Musculoskeletal: No Clubbing, No Cyanosis and No Edema
Neuro: Awake, Alert and Disoriented, strength 5 out of 5 both lower extremity, no sensory deficits, cranial nerves are intact although very challenging to follow commands.
Psych: Limited judgment and insight at the moment.
A/P:
Acute on chronic hypoxic respiratory failure likely related to bacterial pneumonia and COVID-19 (unvaccinated):
Antibiotics
Steroids
Incentive spirometry
Bronchodilators
PT OT eval
Oxygen supplement
baseline home oxygen is 3 L/M, currently on 4 L/M
Sepsis due to pneumonia:
SIRS criteria with fever, tachypnea, leukocytosis, mental status changes, and source of pneumonia
Seen and reviewed chest x-ray by myself and agree with opacity in the right upper lobe
Stop IV fluids
Continue IV Rocephin and oral doxycycline
Follow-up cultures
Checked sputum culture and negative
Checked strep and Legionella and negative
Speech therapy evaluation for swallow eval
PT OT eval and recommendations TBD
Pulmonary consult appreciated
Discussed with pulmonary today
Discussed with , Amy at bedside today
Toxic metabolic encephalopathy:
Likely related to COVID-19. Initially more sepsis related. Medications could contribute as well-He is on necessary regimen of steroids and also takes benzodiazepine that have been adjusted as well.
Will obtain CT scan of the head rule out intracranial abnormalities but seems to be less likely
Discussed with at bedside about the use of antipsychotics if encephalopathy worsens, but will try to hold off since he is on Paxlovid and also had episode of bradycardia before to avoid cardiotoxicity.
Monitor mental status and behavior closely
COVID-19:
Started on IV dexamethasone 6 mg daily, day 3 out of potentially 10 (can do less if clinical improvement and less oxygenation or too much side effects)
ID consulted
Started on Paxlovid, day 2 out of 5
Due to the usual interactions, some of his medications on hold.
Incentive spirometry
Droplet and contact precautions
Will check inflammatory markers today (would prefer to do if not daily at least every 48 hours)
Bradycardia during night of admission
Remdesivir was held and ID consulted and recommended switch to Paxlovid.
Hx of RUL SCC dx 03/17/2023
completed XRT ~1 yr ago
Elevated troponin due to non-ischemic myocardial injury due to worsening hypoxia and sepsis:
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
Trend troponin
No chest pain
Brugada syndrome:
Patient incidentally found Brugada but looking back in his records he also had the same EKG pattern of Brugada back in 2020.
Cardiology consulted in the ED
Cardiology felt that since no evidence of syncope at the moment, he can be referred to outpatient EPS for further evaluation.
Keep electrolytes with potassium above 4 and magnesium above 2
Cardiac monitoring for now
COPD:
Bronchodilators in the form of inhalers QID (unable to do Nebs due to Covid unless absolutely required)
No strong need for systemic steroids from COPD perspective but given COVID-19 positive so started him on steroids and will cover both.
Anxiety:
Continue benzodiazepines (decreased doses due to Paxlovid)
BPH:
Flomax on hold due to Paxlovid
Smoker:
Nicotine patch
Pt is still smoking, but smaller quantity than used to smoke
DVT prophylaxis:
Lovenox 40 mg SQ daily
CODE STATUS:
Full code
Total time spent on today's encounter was 52 minutes which included time spent in counseling the patient/family regarding diagnosis and treatment plan as listed above, goals of care, and symptom management. Case was discussed with nursing staff,
specialists, and care coordinators/case management. All labs and imaging personally reviewed by me. Remainder the time spent in detailed review of previous records, lab data, imaging, and other medical provider documentation.
Anticipated Discharge: > 48 hours
Subjective/Interval History
-
Date of Service: June 20, 2024
Patient confused and lethargic overnight. This morning he is more alert but remains confused and encephalopathic. Remains on oxygen. Afebrile
Objective Data
-
Labs:
Laboratory Results
06/19/24 06/20/24
22:47 06:00
WBC Pending
Hgb Pending
Hct Pending
Plt Count Pending
HCO3 Cancelled
Sodium Pending
Potassium Pending
Chloride Pending
Carbon Dioxide Pending
BUN Pending
Creatinine Pending
Glucose Pending
Calcium Pending
Vital Signs:
Vital Signs
Temp Pulse Resp BP Pulse Ox
99.0 F 54 18 131/72 94
06/20/24 03:08 06/20/24 07:22 06/20/24 07:22 06/20/24 03:08 06/20/24 07:22
I&O
06/19/24 06/20/24 06/21/24
06:59 06:59 06:59
Intake Total 240 / 240 1050 / 1050
Balance 240 / 240 1050 / 1050
[2024-06-20] MEDS: VIBRAMYCIN 100 MG PO ×2 (07:53→21:10)
[2024-06-20] MEDS: NICODERM TRANSDERMAL 14 MG TRANSDERM (07:54)
[2024-06-20] MEDS: BUSPAR 7.5 MG PO ×4 (07:55→21:10)
[2024-06-20] MEDS: PAXLOVID 2X150 MG-100 MG DOSE PACK 1 DOSE PO ×2 (07:56→21:11)
--- NOTE | 2024-06-20 09:45 | W.PN.PUL3 ---
Today's Communication / Plan
-
No changes from pulmonary standpoint
Unclear cause of waxing and waning mental status
May require additional workup. Will try to discuss with primary service
No evidence of significant CO2 retention
Assessment
-
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
via spirometry from 03/20/2024), history of scarlet fever, anxiety, and history of chronic bronchitis who presents with 3 days of altered mental status and poor PO intake. Initial vitals in the ER showed he was febrile to 98.2 �F, pulse rate 69,
respiratory rate 18, BP 86/57 and saturating 88% on room air. He was found to be febrile upon rectal temperature to 102 �F. Initial labs showed WBC 11.5, blood gas pH 7.37, pCO2 49, serum sodium 134, troponin 0.046, procalcitonin 0.62, urinalysis
with trace leukocyte esterase, and COVID-19 antigen was positive. CXR obtained showing right upper lobe airspace opacity suspicious for pneumonia. He was given ceftriaxone, DuoNebs, Tylenol and IVF with 1.6 L of NS 0.9%. He was admitted to the
hospitalist service and pulmonary service consulted for additional management/recommendations.
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
history of chickenpox, history of measles/mumps
Impression:
#Suspected right upper lobe pneumonia in the setting of COVID-19 positive status (SARS-Cov-2 antigen positive today)
- Unclear if this is truly a right upper lobe pneumonia or just postradiation changes
#COPD exacerbation due to above
#Emphysema
#Active tobacco use
#Elevated troponin
#Hyponatremia (mild)
#History of RUL non-small cell lung cancer (squamous of carcinoma) s/p XRT - follows with [facility]
Plan/recommendations
At this time, patient appears to be comfortable on nasal cannula.
Does not appear to be in respiratory distress
However, turns head and opens eyes but does not follow commands. Speaks few words
According to partner at bedside, this has been waxing waning over the past week.
Chest exam is clear.
Chest x-ray 06/18/2024 reviewed, vague bilateral infiltrates, cannot rule out right upper lobe pneumonia
Mildly positive procalcitonin, mildly positive troponin noted
Moving forward
Continue with albuterol QID with spiriva; prn albuterol for breakthrough symptoms
Continue Decadron and wean as tolerated � currently on 6mg IV q24hr, no changes for now
Remdesivir on hold
Maintain SpO2 >88-94% with supplemental O2 as needed
Incentive spirometer encouraged
Nicotine patch
ID eval noted. Paxlovid started
Antibiotics per ID
Wean oxygen as able
Unclear cause of waxing and waning mental status. According to partner at bedside, patient was improved yesterday, today he is turning head and speaking few words but not following commands. He does withdraw all extremities to pain
Will discuss with primary service
May require head CT imaging and/or neurology evaluation
VBG without evidence of significant CO2 retention
Reviewed medications. No narcotics or sedatives noted. Patient on buspirone
Partner at bedside states that this has been waxing waning over the last week
DVT ppx: Remains on Lovenox
Patient follows with us in the [facility] office with last visit with Dr. Brasher on 03/20/2024. Patient will follow-up with Dr. Brasher again following discharge.
Reviewed with partner at bedside
Data:
CXR 06/18/2024:
Right upper lobe airspace opacity, suspicious for pneumonia.
The lungs are mildly hyperinflated, likely sequelae of COPD.
Subjective Data
-
Date of Service:
Date of Service: June 20, 2024
Subjective:
Patient appears to be comfortable unfortunately is not following commands. He does speak few words, but does not cough on command. He is awake. Partner is at bedside.
Objective Data
Data Reviewed
Vital Signs / I&O / Oxygen:
Vital Signs
Temp Pulse Resp BP Pulse Ox
97.5 F 66 20 127/78 94
06/20/24 07:46 06/20/24 07:46 06/20/24 07:46 06/20/24 07:46 06/20/24 07:49
Intake and Output
06/19/24 06/20/24 06/21/24
06:59 06:59 06:59
Intake Total 240 / 240 1050 / 1050 160 / 160
Balance 240 / 240 1050 / 1050 160 / 160
SaO2 94
Nasal Cannula flow liters per 4
minute
Physical Exam
General: Comfortable (Cachectic)
HEENT: Normocephalic
Cardiovascular: S1-S2, Regular Rhythm, Murmur (n) and Rub (n)
Respiratory: Wheeze (n), Crackles (n), Rhonchi (n), Non-Labored Respirations, Stridor (n) and Other (Poor inspiratory effort)
GI: Soft and Non Distended
Neurology: Awake, Unresponsive (Speaks few words, turns head, does not follow commands) and Other (Sleeping comfortably)
Skin: Cyanosis (n) and Rash (n)
Labs/Micro/Reports
Laboratory Results
06/19/24
22:47
pH Cancelled
pCO2 Cancelled
pO2 Cancelled
HCO3 Cancelled
O2 Delivery Level Cancelled
Microbiology
06/18/24 09:50 Urine Legionella Urinary Antigen - Final
Negative for Legionella pneumophila Serogroup 1 antigen.
A negative result does not rule out the possiblity of
Legionella infection due to other serogroups or species of
Legionella. Clinical correlation is recommended.
06/18/24 09:50 Urine Streptococcus pneumoniae Antigen (M - Final
Negative for Streptococcus pneumoniae antigen.
A negative result does not exclude infection with
Streptococcus pneumoniae. Clinical correlation is
recommended.
--- NOTE | 2024-06-20 09:47 | W.PN.ID1 ---
Date of Service
Date of Service: June 20, 2024
Today's Communication
Continue abx's, antiviral.
Assessment / Plan
# Moderate COVID infection
-Acute on chronic hypoxemic respiratory insufficiency
- Developed bradycardia on Remdesivir
- Continue dexamethasone
- Continue Paxlovid (d 2 of 5)
- Decreased buspirone dose by 1/2 (7.5mg qid) while on Paxlovid.
- Hold tamsulosin while on Paxlovid.
- Follow O2 status
- Continue COVID isolation through 06/25/24.
# Suspect superimposed RUL bacterial PNA
- Acute on chronic hypoxemic respiratory insufficiency
- Continue ceftriaxone and doxycycline (d3)
# Fever - resolved
# Leukocytosis trended up due to steroid.
# Severe COPD on chronic 3L 02
# Active tobacco use disorder - counselled on benefits of smoking cessation
# h/o lung cancer s/p XRT
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
Severe COPD
Chronic hypoxemic respiratory failure on home 02 3L with activity
Tobacco use disorder
BPH
Anxiety
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
Chief Complaint
-: Pneumonia
Subjective / Review of Systems
Was more confused last night. Better this am.
Vital Signs / Physical Exam
Vital Signs
Vital Signs
Temp Pulse Resp BP Pulse Ox
97.5 F 66 20 127/78 94
06/20/24 07:46 06/20/24 07:46 06/20/24 07:46 06/20/24 07:46 06/20/24 07:49
Physical Exam
Cardiovascular: Regular Rate and S1/S2
Pulmonary: Clear
Gastrointestinal: Soft, Non Tender, Non Distended and Normal Bowel Sounds
Extremities: Negative Edema
Objective Data
Lab Data
Estimated Creat Clear 85 ml/min 06/19/24 05:34
Lactic Acid Cancelled 06/18/24 11:45
Total Bilirubin 0.4 mg/dl (0.2-1.3) 06/19/24 05:34
AST 36 U/L (17-59) 06/19/24 05:34
ALT 21 U/L (0-50) 06/19/24 05:34
Alkaline Phosphatase 63 U/L (38-126) 06/19/24 05:34
C-Reactive Protein 156.60 mg/L (0.0-10.00) H 06/19/24 05:34
Most recent labs reviewed.
Micro Results:
06/18/24 09:50 Legionella Urinary Antigen - Final
Urine Negative for Legionella pneumophila Serogroup 1 antigen.
A negative result does not rule out the possiblity of
Legionella infection due to other serogroups or species of
Legionella. Clinical correlation is recommended.
Streptococcus pneumoniae Antigen (M - Final
Negative for Streptococcus pneumoniae antigen.
A negative result does not exclude infection with
Streptococcus pneumoniae. Clinical correlation is
recommended.
06/18/24 CXR: Right upper lobe airspace opacity, suspicious for pneumonia.
[2024-06-20 10:45] LABS: % Basophils 0.4 % (0-2); % Immature Granulocytes 1.2 % (0-0.5); % Lymphocytes 6.5 % (20.5-51.1); % Monocytes 7.2 % (1.7-9.3); % Neutrophils 84.7 % (42.2-75.2); Absolute Basophils 0.1 10^3/uL (0-0.2); Absolute Immature Granulocytes 0.2 10^3/uL (0-0.05); Absolute Lymphocytes 0.8 10^3/uL (1.2-3.4); Absolute Monocytes 0.9 10^3/uL (0.1-0.6); Absolute Neutrophils 10.8 10^3/uL (1.4-6.5); Hematocrit 36.7 % (39.0-52.0); Hemoglobin 13.5 g/dL (13.0-18.0); Mean Corp Hgb Conc. 36.8 g/dL (33.0-37.0); Mean Corpuscular Hgb 29.9 pg (27.0-31.0); Mean Corpuscular Volume 81.2 fL (80.0-94.0); Mean Platelet Volume 10.3 fL (7.4-10.4); Nucleated Red Blood Cells % 0 % (-); Platelet Count 206 10^3/uL (130-400); Red Blood Cell Count 4.52 10^6/uL (4.70-6.10); Red Cell Dist. Width 13.4 % (11.5-14.5); White Blood Cell Count 12.7 10^3/uL (4.8-10.8)
[2024-06-20 11:02] LABS: Troponin I 0.198 ng/ml
[2024-06-20 11:34] LABS: Blood Urea Nitrogen 18 mg/dl (9-20); Calcium 8.6 mg/dl (8.4-10.2); Carbon Dioxide 20 mmol/L (22-30); Chloride 106 mmol/L (98-107); Estimated Creatinine Clearance 85 ml/min; Glucose 128 mg/dl (70-99); Potassium 3.8 mmol/L (3.5-5.1); Sodium 134 mmol/L (135-145); eGFR > 60.00
--- NOTE | 2024-06-20 12:11 | CM ---
Reviewed the chart notes. Patient continues on O2 4L/min. CM continues to be available to patient/family and is monitoring medical plan for needs at discharge.
Plan: Discharge plans will depend on the patient's progress.
[2024-06-20] MEDS: ROCEPHIN 1000 MG IV (12:18)
[2024-06-20] MEDS: STERILE WATER FOR INJECTION 10 ML IV (12:18)
[2024-06-20] MEDS: DECADRON 6 MG IV (12:24)
[2024-06-20 14:21] LABS: LDH 254 U/L (120-246)
[2024-06-20] MEDS: LOVENOX 40 MG SC (17:21)
[2024-06-21] VITALS (7 sets, daily range): BP systolic 118–144; BP diastolic 56–87; PULSE 68; O2SAT 93
--- NOTE | 2024-06-21 05:03 | PTCARENOTE ---
Staff unable to obtain EKG; patient is confused, restless, uncooperative, agitated and combative; patient is unable to be re-directed or oriented at this time; patient's significant other is at bedside but provides no assistance.
[2024-06-21 06:11] LABS: Blood Urea Nitrogen 21 mg/dl (9-20); Calcium 8.6 mg/dl (8.4-10.2); Carbon Dioxide 19 mmol/L (22-30); Chloride 108 mmol/L (98-107); Estimated Creatinine Clearance 85 ml/min; Glucose 123 mg/dl (70-99); LDH 258 U/L (120-246); Potassium 3.8 mmol/L (3.5-5.1); Sodium 136 mmol/L (135-145); eGFR > 60.00
[2024-06-21 07:00] LABS: % Basophils 0.2 % (0-2); % Immature Granulocytes 1.1 % (0-0.5); % Lymphocytes 6.7 % (20.5-51.1); % Monocytes 5.6 % (1.7-9.3); % Neutrophils 86.4 % (42.2-75.2); Absolute Immature Granulocytes 0.1 10^3/uL (0-0.05); Absolute Lymphocytes 0.8 10^3/uL (1.2-3.4); Absolute Monocytes 0.7 10^3/uL (0.1-0.6); Hematocrit 39.8 % (39.0-52.0); Hemoglobin 14.6 g/dL (13.0-18.0); Mean Corp Hgb Conc. 36.7 g/dL (33.0-37.0); Mean Corpuscular Hgb 30.5 pg (27.0-31.0); Mean Corpuscular Volume 83.1 fL (80.0-94.0); Mean Platelet Volume 10.3 fL (7.4-10.4); Nucleated Red Blood Cells % 0 % (-); Platelet Count 227 10^3/uL (130-400); Red Blood Cell Count 4.79 10^6/uL (4.70-6.10); Red Cell Dist. Width 13.4 % (11.5-14.5); White Blood Cell Count 11.6 10^3/uL (4.8-10.8)
[2024-06-21] MEDS: ProAIR HFA INHALER 2 PUFF INH ×4 (07:24→20:28)
[2024-06-21] MEDS: SPIRIVA RESPIMAT 2.5 MCG 2 PUFF INH (07:25)
[2024-06-21 07:27] LABS: Troponin I 0.276 ng/ml
[2024-06-21] MEDS: PAXLOVID 2X150 MG-100 MG DOSE PACK 1 DOSE PO ×2 (09:06→20:36)
[2024-06-21] MEDS: VIBRAMYCIN 100 MG PO ×2 (09:06→20:36)
[2024-06-21] MEDS: BUSPAR 7.5 MG PO ×4 (09:06→20:36)
[2024-06-21] MEDS: NICODERM TRANSDERMAL 14 MG TRANSDERM (09:07)
[2024-06-21] MEDS: ROCEPHIN 1000 MG IV (09:08)
[2024-06-21] MEDS: STERILE WATER FOR INJECTION 10 ML IV (09:08)
[2024-06-21] MEDS: SPIRIVA RESPIMAT 2.5 MCG INH (10:09)
[2024-06-21] MEDS: SYMBICORT 80/4.5 MCG INHALER INH (10:09)
--- NOTE | 2024-06-21 10:34 | CM ---
Reviewed the chart notes and spoke with RN. Per RN, patient is confused and agitated at times. Staff was unable to obtain ordered EKG due to the patient's agitation. Patient on O2 @ 4L/min. CM continues to be available to patient/family and is
monitoring medical plan for needs at discharge.
Plan: Discharge plans will depend on the patient's progress.
--- NOTE | 2024-06-21 11:29 | W.PN.PUL3 ---
Today's Communication / Plan
-
Continue with steroid therapy
PT/OT
Remains on antiviral therapy per infectious disease
Assessment
-
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
via spirometry from 03/20/2024), history of scarlet fever, anxiety, and history of chronic bronchitis who presents with 3 days of altered mental status and poor PO intake. Initial vitals in the ER showed he was febrile to 98.2 �F, pulse rate 69,
respiratory rate 18, BP 86/57 and saturating 88% on room air. He was found to be febrile upon rectal temperature to 102 �F. Initial labs showed WBC 11.5, blood gas pH 7.37, pCO2 49, serum sodium 134, troponin 0.046, procalcitonin 0.62, urinalysis
with trace leukocyte esterase, and COVID-19 antigen was positive. CXR obtained showing right upper lobe airspace opacity suspicious for pneumonia. He was given ceftriaxone, DuoNebs, Tylenol and IVF with 1.6 L of NS 0.9%. He was admitted to the
hospitalist service and pulmonary service consulted for additional management/recommendations.
Chronic conditions INCIDENT HANDLER: History of RUL lung cancer s/p XRT, history of chronic bronchitis, severe COPD on home oxygen, restrictive lung disease, cachexia, smoker's cough, tobacco use disorder, anxiety, history of scarlet fever, history of pneumonia,
history of chickenpox, history of measles/mumps
Impression:
#Suspected right upper lobe pneumonia in the setting of COVID-19 positive status (SARS-Cov-2 antigen positive today)
- Unclear if this is truly a right upper lobe pneumonia or just postradiation changes
#COPD exacerbation due to above
#Emphysema
#Active tobacco use
#Elevated troponin
#Hyponatremia (mild)
#History of RUL non-small cell lung cancer (squamous of carcinoma) s/p XRT - follows with [place]
Plan/recommendations
At this time, patient appears to be comfortable on nasal cannula.
93% on 4 L
Does not appear to be in respiratory distress
Mental status appears to be improved. Still profoundly weak
Chest exam is clear.
Chest x-ray 06/18/2024 reviewed, vague bilateral infiltrates, cannot rule out right upper lobe pneumonia
Mildly positive procalcitonin, mildly positive troponin noted
Head CT is normal without acute findings
Moving forward
Continue with albuterol QID with spiriva; prn albuterol for breakthrough symptoms
Continue Decadron and wean as tolerated � currently on 6mg IV q24hr, no changes for now
Remdesivir has been discontinued
Maintain SpO2 >88-94% with supplemental O2 as needed
Incentive spirometer encouraged
Nicotine patch
ID eval noted. Paxlovid started
Antibiotics per ID
Wean oxygen as able
Unclear cause of waxing and waning mental status. According to partner at bedside, patient was improved yesterday, today he is turning head and speaking few words but not following commands. He does withdraw all extremities to pain
Further workup per primary service. Seems to wax and wane
VBG without evidence of significant CO2 retention
Reviewed medications. No narcotics or sedatives noted. Patient on buspirone
Partner at bedside states that this has been waxing waning over the last week
DVT ppx: Remains on Lovenox
Patient follows with us in the [facility] office with last visit with Dr. Brasher on 03/20/2024. Patient will follow-up with Dr. Brasher again following discharge.
Data:
CXR 06/18/2024:
Right upper lobe airspace opacity, suspicious for pneumonia.
The lungs are mildly hyperinflated, likely sequelae of COPD.
Subjective Data
-
Date of Service:
Date of Service: June 21, 2024
Subjective:
Patient appears to be more alert today. He is answering questions. However he is still not a ball of fire. He admits to shortness of breath, cough, chest pain. He does not answer the question when asked where he is or assessing his orientation
Objective Data
Data Reviewed
Vital Signs / I&O / Oxygen:
Vital Signs
Temp Pulse Resp BP Pulse Ox
98.2 F 73 18 132/82 93
06/21/24 07:30 06/21/24 11:24 06/21/24 11:24 06/21/24 07:30 06/21/24 11:24
Intake and Output
06/20/24 06/21/24 06/22/24
06:59 06:59 06:59
Intake Total 1050 / 1050 880 / 880
Balance 1050 / 1050 880 / 880
SaO2 93
Nasal Cannula flow liters per 3
minute
Physical Exam
General: Comfortable (Cachectic)
HEENT: Normocephalic
Cardiovascular: S1-S2, Regular Rhythm, Murmur (n) and Rub (n)
Respiratory: Wheeze (n), Crackles (n), Rhonchi (n), Non-Labored Respirations, Stridor (n) and Other (Poor inspiratory effort)
GI: Soft and Non Distended
Neurology: Awake, Alert and No Motor Deficits (Moves extremities, sits up, pulls himself up without assistance. Generally weak)
Skin: Cyanosis (n) and Rash (n)
Labs/Micro/Reports
Lab Data
06/21/24 06:50
06/21/24 05:19
Microbiology
06/18/24 09:50 Urine Legionella Urinary Antigen - Final
Negative for Legionella pneumophila Serogroup 1 antigen.
A negative result does not rule out the possiblity of
Legionella infection due to other serogroups or species of
Legionella. Clinical correlation is recommended.
06/18/24 09:50 Urine Streptococcus pneumoniae Antigen (M - Final
Negative for Streptococcus pneumoniae antigen.
A negative result does not exclude infection with
Streptococcus pneumoniae. Clinical correlation is
recommended.
[2024-06-21 11:53] LABS: Troponin I 0.293 ng/ml
--- NOTE | 2024-06-21 12:08 | PTCARENOTE ---
messaged Dr. Louis Robles about cough relief. pt requesting possible breathing treatment and cough medicine with lorenza.
[2024-06-21] MEDS: DECADRON 6 MG IV (12:12)
--- NOTE | 2024-06-21 12:36 | PTCARENOTE ---
EKG obtained. Resuts forwarded to Dr. Laws. Paper placed in chart
--- NOTE | 2024-06-21 12:55 | W.PN.HOSP.TC ---
Today's Communication/Plan
-
Monitor vital signs
see plan
Continue with Paxlovid, Decadron
Trend troponin
PT/OT
Wean oxygen as tolerated
Laxatives
Assessment / Plan
Assessment / Plan
Physical exam:
General: Acutely ill
HEENT: Normocephalic, Atraumatic and Moist Mucous Membranes
Respiratory: Clear to Auscultation; Negative Wheezes, Rales or Rhonchi
Cardiac: Regular Rhythm and S1/S2
GI: Soft, Nontender and Nondistended
Musculoskeletal: No Clubbing, No Cyanosis and No Edema
Neuro: Awake, Alert and Disoriented, strength 5 out of 5 both lower extremity, no sensory deficits, cranial nerves are intact although very challenging to follow commands.
Psych: Limited judgment and insight at the moment.
A/P:
Acute on chronic hypoxic respiratory failure likely related to bacterial pneumonia and COVID-19 (unvaccinated):
Antibiotics
Steroids
Incentive spirometry
Bronchodilators
PT OT eval
Oxygen supplement
baseline home oxygen is 3 L/M, currently on 5 L/M
Sepsis due to pneumonia:
SIRS criteria with fever, tachypnea, leukocytosis, mental status changes, and source of pneumonia
Seen and reviewed chest x-ray by myself and agree with opacity in the right upper lobe
Continue IV Rocephin and oral doxycycline
Follow-up cultures
Checked sputum culture and negative
Checked strep and Legionella and negative
Speech therapy evaluation for swallow eval rec regular
PT OT eval and recommendations TBD
Pulmonary consult appreciated
Discussed with , Amy at bedside today
Toxic metabolic encephalopathy:
Likely related to COVID-19. Initially more sepsis related. Medications could contribute as well-He is on necessary regimen of steroids and also takes benzodiazepine that have been adjusted as well.
CT scan negative for any acute intracranial normality
Discussed with the , appears mental status is now improving
Monitor mental status and behavior closely
COVID-19:
Started on IV dexamethasone 6 mg daily
ID following
Started on Paxlovid
Due to the usual interactions, some of his medications on hold.
Incentive spirometry
Droplet and contact precautions
Bradycardia during night of admission
Remdesivir was held and ID consulted and recommended switch to Paxlovid.
Hx of RUL SCC dx 03/17/2023
completed XRT ~1 yr ago
Elevated troponin due to non-ischemic myocardial injury due to worsening hypoxia and sepsis:
monitoring specialist
Trend troponin
No chest pain
Brugada syndrome:
Patient incidentally found Brugada but looking back in his records he also had the same EKG pattern of Brugada back in 2020.
Cardiology consulted in the ED
Cardiology felt that since no evidence of syncope at the moment, he can be referred to outpatient EPS for further evaluation.
Keep electrolytes with potassium above 4 and magnesium above 2
Cardiac monitoring for now
COPD:
Bronchodilators in the form of inhalers QID (unable to do Nebs due to Covid unless absolutely required)
No strong need for systemic steroids from COPD perspective but given COVID-19 positive so started him on steroids and will cover both.
Constipation
Laxatives
Anxiety:
Continue benzodiazepines (decreased doses due to Paxlovid)
BPH:
Flomax on hold due to Paxlovid
Smoker:
Nicotine patch
Pt is still smoking, but smaller quantity than used to smoke
DVT prophylaxis:
Lovenox 40 mg SQ daily
CODE STATUS:
Full code
Total time spent on today's encounter was 52 minutes which included time spent in counseling the patient/family regarding diagnosis and treatment plan as listed above, goals of care, and symptom management. Case was discussed with nursing staff,
specialists, and care coordinators/case management. All labs and imaging personally reviewed by me. Remainder the time spent in detailed review of previous records, lab data, imaging, and other medical provider documentation.
Anticipated Discharge: > 48 hours
Subjective/Interval History
-
Date of Service: June 21, 2024
denies pain
Objective Data
-
Labs:
Laboratory Results
06/21/24 06/21/24
05:19 06:50
WBC 11.6 H
Hgb 14.6
Hct 39.8
Plt Count 227
Sodium 136
Potassium 3.8
Chloride 108 H
Carbon Dioxide 19 L
BUN 21 H
Creatinine 0.6 L
Glucose 123 H
Calcium 8.6
Vital Signs:
Vital Signs
Temp Pulse Resp BP Pulse Ox
97.6 F 73 18 122/83 93
06/21/24 12:00 06/21/24 12:00 06/21/24 12:00 06/21/24 12:00 06/21/24 12:00
I&O
06/20/24 06/21/24 06/22/24
06:59 06:59 06:59
Intake Total 1050 / 1050 880 / 880
Balance 1050 / 1050 880 / 880
[2024-06-21] MEDS: MIRALAX 17 GRAMS PO (13:23)
--- NOTE | 2024-06-21 14:00 | PTOTSP ---
Speech Language Pathology
Pt seen for dysphagia tx. Pt frequently staring at TV with minimal responses to TENANT COORDINATOR. Answered questions at times with single words or short phrases. Oriented to name and only. Minimal awareness noted. HCT completed, which was negative.
P.O. trials of macaroni and cheese from lunch tray provided in addition to cracker trials and sips of water. Pt mostly sucking on solids without true mastication prior to swallowing. Suspect he was swallowing these at least partially whole. This
is related to cognitive status. With consecutive sips of thin liquids via straw, immediate cough noted. Baseline coughing also noted, so unsure if related to aspiration or baseline cough. No overt coughing with single sips of thin liquids.
Double swallow consistently noted with trials. Hiccuping noted at times post swallow.
As pt not demonstrating true mastication secondary to cognitive status, recommend diet downgrade to mitigate risk of airway obstruction.
Recommend:
(1) Downgrade to IDDSI Level 5 (Minced/Moist) and Thin Liquids
(2) Aspiration precautions: single sips only, full supervision, slow rate, ensure oral cavity clear post P.O. intake
(3) Meds whole in puree
(4) Consider neuro consult given significant cognitive deficits
(5) TENANT COORDINATOR to continue to follow. Will consider cognitive-linguistic evaluation pending progress
--- NOTE | 2024-06-21 15:35 | W.PN.ID1 ---
Date of Service
Date of Service: June 21, 2024
Today's Communication
Tomorrow, will transition ceftriaxone to po cefuroxime 500mg po bid and continue doxycycline 100mg po bid through 06/24.
Continue Paxlovid
Assessment / Plan
# Moderate COVID infection
-Acute on chronic hypoxemic respiratory insufficiency - decreasing
- Developed bradycardia on Remdesivir
- Continue dexamethasone
- Continue Paxlovid (d3 of 5)
- Decreased buspirone dose by 1/2 (7.5mg qid) while on Paxlovid.
- Hold tamsulosin while on Paxlovid.
- Follow O2 status
- Continue COVID isolation through 06/25/24.
# Suspect superimposed RUL bacterial PNA
- Acute on chronic hypoxemic respiratory insufficiency
- Continue ceftriaxone and po doxycycline (d4)
- Tomorrow, will transition ceftriaxone to po cefuroxime 500mg po bid and continue doxycycline 100mg po bid through 06/24.
# Fever - resolved
# Leukocytosis -trending down
# Severe COPD on chronic 3L 02
# Active tobacco use disorder - counselled on benefits of smoking cessation
# h/o lung cancer s/p XRT
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
Chronic hypoxemic respiratory failure on home 02 3L with activity
Tobacco use disorder
BPH
Anxiety
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
Chief Complaint
-: Pneumonia
Subjective / Review of Systems
Feels a bit better.
Vital Signs / Physical Exam
Vital Signs
Vital Signs
Temp Pulse Resp BP Pulse Ox
97.6 F 55 18 122/83 93
06/21/24 12:00 06/21/24 15:32 06/21/24 15:32 06/21/24 12:00 06/21/24 15:32
Physical Exam
Constitutional: No Acute Distress
Cardiovascular: Regular Rate and S1/S2
Pulmonary: Clear
Gastrointestinal: Soft, Non Tender and Non Distended
Objective Data
Lab Data
Lab Results
06/21/24 06:50
06/21/24 05:19
Estimated Creat Clear 85 ml/min 06/21/24 05:19
Lactic Acid Cancelled 06/18/24 11:45
Total Bilirubin 0.4 mg/dl (0.2-1.3) 06/19/24 05:34
AST 36 U/L (17-59) 06/19/24 05:34
ALT 21 U/L (0-50) 06/19/24 05:34
Alkaline Phosphatase 63 U/L (38-126) 06/19/24 05:34
C-Reactive Protein 20.70 mg/L (0.0-10.00) H 06/21/24 06:50
Most recent labs reviewed.
Micro Results:
06/18/24 09:50 Legionella Urinary Antigen - Final
Urine Negative for Legionella pneumophila Serogroup 1 antigen.
A negative result does not rule out the possiblity of
Legionella infection due to other serogroups or species of
Legionella. Clinical correlation is recommended.
Streptococcus pneumoniae Antigen (M - Final
Negative for Streptococcus pneumoniae antigen.
A negative result does not exclude infection with
Streptococcus pneumoniae. Clinical correlation is
recommended.
06/18/24 CXR: Right upper lobe airspace opacity, suspicious for pneumonia.
--- NOTE | 2024-06-21 15:49 | PN.CDI ---
CDI
- -
CDI:
Physician Documentation Request
Admit Date: 06/18/24 09:46
Dear Doctor Veto,
Please review the following and provide your response in the progress notes.
Clinical Indicators:
- 06/21 [employer] Distribution Consultant indicates severe protein calorie malnutrition
- Chronic illness
- Severe loss of fat over rib cage, orbital
- Severe loss of muscle over calf, clavicle, temporal
- BMI 16.7
Based on the above information and your assessment, which of the following most accurately represents the patient's nutritional status?
Severe protein calorie malnutrition
Other
[place] Criteria ([facility] Hospitalist 2017)
2 or more criteria must be present for either
non severe or severe malnutrition
Note that the criteria differs related to the
presence of an acute or chronic illness
Acute Illness Chronic Illness
Energy Intake Non Severe: <75% for >7 days Non Severe: <75% for >1 month
Severe: <50% for >5 days Severe: <75% for >1 month
Weight Loss Non Severe: 1-2% over 1 week Non Severe: 5% over 1 month
5% over 1 month 7.5% over 3 months
7.5% over 3 months 10% over 6 months
1 year N/A 20% over 1 year
Severe: >2% over 1 week Severe: >5% over 1 month
>5% over 1 month >7.5% over 3 months
>7.5% over 3 months >10% over 6 months
1 year N/A >20% over 1 year
Body Fat Non Severe: Mild Decrease Non Severe: Mild Loss
Severe: Moderate Decrease Severe: Severe Loss
Muscle Mass Non Severe: Mild Decrease Non Severe: Mild Loss
Severe: Moderate Decrease Severe: Severe Loss
Fluid Accumulation Non Severe: Mild Accumulation Non Severe: Mild Accumulation
Severe: Moderate to severe Severe: Moderate to severe
accumulation accumulation
Reduced [employer] Flatbed Driver Strength Non Severe: N/A Non Severe: N/A
Severe: Measurably reduced Severe: Measurably reduced
Additional criteria that can be used to Determine if Mild or Moderate Malnutrition ([employer] Manual 2018)
Mild Moderate Severe
Albumin gm/dl <3.0 gm/dl <2.5 gm/dl <2.0 gm/dl
Pre Albumin mg/dl <15 gm/dl <10 mg/dl <5.0 mg/dl
BMI <18.5 <17 <16
Use of terms such as suspected, likely, concern for, or probable (associated with a specific diagnosis that is being evaluated, monitored, or treated as if it exists) are acceptable and can be coded in the inpatient setting, when documented at the
time of discharge.
Thank you,
Dante Candelario RN
CDI Specialist
Please use your independent medical judgment in providing your response.
[2024-06-21] MEDS: LOVENOX 40 MG SC (18:05)
[2024-06-21 20:23] LABS: Troponin I 0.185 ng/ml
[2024-06-21] MEDS: SYMBICORT 80/4.5 MCG INHALER 2 PUFF INH (20:29)
[2024-06-21] MEDS: TYLENOL 650 MG PO (20:48)
[2024-06-21] MEDS: SENOKOT-S 1 TABLET PO (20:48)
--- NOTE | 2024-06-22 01:59 | PTCARENOTE ---
Pt confused, agitated, and restless. Unable to follow simple commands.C/o abdominal pain but unable to describe his pain. PRN Tylenol and Senokot given. Per caregiver no BM for several days. COMPOUND WORKER made aware no new orders at that time. Medsitter, lenore
alarm in place.
[2024-06-22 03:10] VITALS: BP 107/78
[2024-06-22 07:25] VITALS: BP 135/82
[2024-06-22] MEDS: SPIRIVA RESPIMAT 2.5 MCG 2 PUFF INH (07:42)
[2024-06-22] MEDS: SYMBICORT 80/4.5 MCG INHALER 2 PUFF INH ×2 (07:42→20:28)
[2024-06-22] MEDS: ProAIR HFA INHALER 2 PUFF INH ×2 (07:42→11:21)
[2024-06-22] MEDS: CEFTIN 500 MG PO ×2 (08:14→20:44)
[2024-06-22] MEDS: BUSPAR 7.5 MG PO ×4 (08:14→20:36)
[2024-06-22] MEDS: ROBITUSSIN 200 MG PO (08:14)
[2024-06-22] MEDS: NICODERM TRANSDERMAL 14 MG TRANSDERM (08:14)
[2024-06-22] MEDS: VIBRAMYCIN 100 MG PO ×2 (08:14→20:35)
[2024-06-22] MEDS: MIRALAX 17 GRAMS PO (08:16)
[2024-06-22] MEDS: PAXLOVID 2X150 MG-100 MG DOSE PACK 1 DOSE PO ×2 (08:17→20:35)
--- NOTE | 2024-06-22 09:06 | W.PN.ID1 ---
Date of Service
Date of Service: June 22, 2024
Today's Communication
Continue Paxlovid x 5 days through 06/23/24.
Continue po cefuroxime 500mg po bid and continue doxycycline 100mg po bid through 06/24.
ID will sign off.
Assessment / Plan
# Moderate COVID infection
-Acute on chronic hypoxemic respiratory insufficiency - improving, back to baseline 02
- Developed bradycardia on Remdesivir
- Continue Paxlovid x 5 days through 06/23/24
- Decreased buspirone dose by 1/2 (7.5mg qid) while on Paxlovid. Can resume 15 mg po bid dose on 06/24.
- Hold tamsulosin while on Paxlovid. Resume tamsulosin on 06/24.
- Continue COVID isolation through 06/25/24.
# Suspect superimposed RUL bacterial PNA
- Acute on chronic hypoxemic respiratory insufficiency
- s/p ceftriaxone and po doxycycline x4 d
-Continue po cefuroxime 500mg po bid and continue doxycycline 100mg po bid through 06/24.
# Fever - resolved
# Leukocytosis -trending down
# Severe COPD on chronic 3L 02
# Active tobacco use disorder - counselled on benefits of smoking cessation
# h/o lung cancer s/p XRT
ID signing off.
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
Chronic hypoxemic respiratory failure on home 02 3L with activity
Tobacco use disorder
BPH
Anxiety
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
Chief Complaint
-: Pneumonia
Subjective / Review of Systems
Cough and SOB much improved.
Feeling better overall.
Per , mental status also much improved.
Vital Signs / Physical Exam
Vital Signs
Vital Signs
Temp Pulse Resp BP Pulse Ox
98.0 F 75 18 135/82 94
06/22/24 07:25 06/22/24 07:58 06/22/24 07:58 06/22/24 07:25 06/22/24 07:58
Physical Exam
Constitutional: No Acute Distress, Comfortable and Cachetic
Pulmonary: Clear
Gastrointestinal: Soft, Non Tender and Non Distended
Extremities: Negative Edema
Neurological: AO x 3
Objective Data
Lab Data
Estimated Creat Clear 85 ml/min 06/21/24 05:19
Lactic Acid Cancelled 06/18/24 11:45
Total Bilirubin 0.4 mg/dl (0.2-1.3) 06/19/24 05:34
AST 36 U/L (17-59) 06/19/24 05:34
ALT 21 U/L (0-50) 06/19/24 05:34
Alkaline Phosphatase 63 U/L (38-126) 06/19/24 05:34
C-Reactive Protein 20.70 mg/L (0.0-10.00) H 06/21/24 06:50
Most recent labs reviewed.
Micro Results:
06/18/24 09:50 Legionella Urinary Antigen - Final
Urine Negative for Legionella pneumophila Serogroup 1 antigen.
A negative result does not rule out the possiblity of
Legionella infection due to other serogroups or species of
Legionella. Clinical correlation is recommended.
Streptococcus pneumoniae Antigen (M - Final
Negative for Streptococcus pneumoniae antigen.
A negative result does not exclude infection with
Streptococcus pneumoniae. Clinical correlation is
recommended.
06/18/24 CXR: Right upper lobe airspace opacity, suspicious for pneumonia.
[2024-06-22 10:38] LABS: % Basophils 0.2 % (0-2); % Lymphocytes 6.5 % (20.5-51.1); % Monocytes 7.3 % (1.7-9.3); Absolute Immature Granulocytes 0.2 10^3/uL (0-0.05); Absolute Lymphocytes 0.8 10^3/uL (1.2-3.4); Absolute Monocytes 0.9 10^3/uL (0.1-0.6); Absolute Neutrophils 9.9 10^3/uL (1.4-6.5); Hematocrit 38.8 % (39.0-52.0); Hemoglobin 14.2 g/dL (13.0-18.0); Mean Corp Hgb Conc. 36.6 g/dL (33.0-37.0); Mean Corpuscular Volume 81.9 fL (80.0-94.0); Mean Platelet Volume 10.2 fL (7.4-10.4); Nucleated Red Blood Cells % 0 % (-); Platelet Count 268 10^3/uL (130-400); Red Blood Cell Count 4.74 10^6/uL (4.70-6.10); Red Cell Dist. Width 13.8 % (11.5-14.5); White Blood Cell Count 11.7 10^3/uL (4.8-10.8)
[2024-06-22 10:49] LABS: Ammonia < 9 umol/L (9-30); Blood Urea Nitrogen 28 mg/dl (9-20); Calcium 8.8 mg/dl (8.4-10.2); Carbon Dioxide 26 mmol/L (22-30); Chloride 105 mmol/L (98-107); Estimated Creatinine Clearance 85 ml/min; Glucose 131 mg/dl (70-99); Potassium 3.3 mmol/L (3.5-5.1); Sodium 137 mmol/L (135-145); eGFR > 60.00
[2024-06-22 11:00] VITALS: BP 140/86
--- NOTE | 2024-06-22 11:06 | W.PN.HOSP.TC ---
Addendum entered and electronically signed by Joshua Laws MD 06/22/24 12:00:
severe protein calorie malnutrition
Original Note:
Today's Communication/Plan
-
Monitor vital signs see plan
Monitor mental status closely
Continue with buspirone
Continue with Paxlovid, Decadron
Continue antibiotics
Replete potassium
Assessment / Plan
Assessment / Plan
Physical exam:
General: Acutely ill
HEENT: Normocephalic, Atraumatic and Moist Mucous Membranes
Respiratory: Clear to Auscultation; Negative Wheezes, Rales or Rhonchi
Cardiac: Regular Rhythm and S1/S2
GI: Soft, Nontender and Nondistended
Musculoskeletal: No Clubbing, No Cyanosis and No Edema
Neuro: Awake, Alert and oriented
Psych: calm
A/P:
Acute on chronic hypoxic respiratory failure likely related to bacterial pneumonia and COVID-19 (unvaccinated):
Antibiotics
Steroids
Incentive spirometry
Bronchodilators
PT OT eval
Oxygen supplement
baseline home oxygen is 3 L/M, currently now on 3 L
Sepsis due to pneumonia:
Appears also have superimposed bacterial pneumonia
Seen and reviewed chest x-ray by myself and agree with opacity in the right upper lobe
Continue cefuroxime and oral doxycycline
Follow-up cultures
Checked sputum culture and negative
Checked strep and Legionella and negative
Speech therapy evaluation for swallow eval rec regular
PT OT eval rec SNF
Pulmonary consult appreciated
Discussed with Amy at bedside today
Toxic metabolic encephalopathy:
Likely related to COVID-19. Initially more sepsis related. Medications could contribute as well-He is on necessary regimen of steroids and also takes benzodiazepine that have been adjusted as well.
CT scan negative for any acute intracranial normality
Discussed with the , appears mental status is now improving
Monitor mental status and behavior closely; appears mental status improving
COVID-19:
Started on IV dexamethasone 6 mg daily
ID following
Started on Paxlovid
Due to the usual interactions, some of his medications on hold.
Incentive spirometry
Droplet and contact precautions
Bradycardia during night of admission
Remdesivir was held and ID consulted and recommended switch to Paxlovid.
Hypokalemia
Monitor, replete
Hx of RUL SCC dx 03/17/2023
completed XRT ~1 yr ago
Elevated troponin due to non-ischemic myocardial injury due to worsening hypoxia and sepsis:
court recording monitor
peak 0.2
No chest pain
Brugada syndrome:
Patient incidentally found Brugada but looking back in his records he also had the same EKG pattern of Brugada back in 2020.
Cardiology consulted in the ED
Cardiology felt that since no evidence of syncope at the moment, he can be referred to outpatient EPS for further evaluation.
Keep electrolytes with potassium above 4 and magnesium above 2
Cardiac monitoring for now
COPD:
Bronchodilators in the form of inhalers QID (unable to do Nebs due to Covid unless absolutely required)
No strong need for systemic steroids from COPD perspective but given COVID-19 positive so started him on steroids and will cover both.
Constipation
Laxatives
Anxiety:
benzos on hold (decreased doses due to Paxlovid)
cw lower dose buspirone until done with paxlovid
BPH:
Flomax on hold due to Paxlovid
Smoker:
Nicotine patch
Pt is still smoking, but smaller quantity than used to smoke
DVT prophylaxis:
Lovenox 40 mg SQ daily
CODE STATUS:
Full code
Total time spent on today's encounter was 51 minutes which included time spent in counseling the patient/family regarding diagnosis and treatment plan as listed above, goals of care, and symptom management. Case was discussed with nursing staff,
specialists, and care coordinators/case management. All labs and imaging personally reviewed by me. Remainder the time spent in detailed review of previous records, lab data, imaging, and other medical provider documentation.
Anticipated Discharge: 24 - 48 hours
Subjective/Interval History
-
Date of Service: June 22, 2024
Denies pain
Objective Data
-
Labs:
Laboratory Results
06/22/24
10:16
WBC 11.7 H
Hgb 14.2
Hct 38.8 L
Plt Count 268
Sodium 137
Potassium 3.3 L
Chloride 105
Carbon Dioxide 26
BUN 28 H
Creatinine 0.6 L
Glucose 131 H
Calcium 8.8
Vital Signs:
Vital Signs
Temp Pulse Resp BP Pulse Ox
98.0 F 75 18 135/82 94
06/22/24 07:25 06/22/24 07:58 06/22/24 07:58 06/22/24 07:25 06/22/24 07:58
I&O
06/21/24 06/22/24 06/23/24
06:59 06:59 06:59
Intake Total 880 / 880 340 / 340
Balance 880 / 880 340 / 340
[2024-06-22] MEDS: KCL 20 MEQ PO ×2 (12:06→20:35)
[2024-06-22] MEDS: DECADRON 6 MG IV (12:06)
--- NOTE | 2024-06-22 12:33 | CM ---
Reviewed the chart notes and spoke with the patient and the patient's significant other at the bedside. Discuss discharge options of SNF vs home with VN. The patient and significant other do not want SNF. Discussed options of VN. VN was
selected. A referral was sent in [facility] for VN/PT/OT/ST. Patient currently at baseline with home O2 at 3L/min. continues to be available to patient/family and is monitoring medical plan for needs at discharge.
Plan: Discharge to home with VN services and family support.
--- NOTE | 2024-06-22 13:23 | W.PN.PUL3 ---
Today's Communication / Plan
-
Continue to wean oxygen as able
Continue steroids, complete 10 days, last day 06/28
Out of bed to chair, PT/OT
Tobacco cessation efforts
Follow-up with pulmonary as outpatient. Information left in chart
We will sign off. Please call with questions
Assessment
-
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
via spirometry from 03/20/2024), history of scarlet fever, anxiety, and history of chronic bronchitis who presents with 3 days of altered mental status and poor PO intake. Initial vitals in the ER showed he was febrile to 98.2 �F, pulse rate 69,
respiratory rate 18, BP 86/57 and saturating 88% on room air. He was found to be febrile upon rectal temperature to 102 �F. Initial labs showed WBC 11.5, blood gas pH 7.37, pCO2 49, serum sodium 134, troponin 0.046, procalcitonin 0.62, urinalysis
with trace leukocyte esterase, and COVID-19 antigen was positive. CXR obtained showing right upper lobe airspace opacity suspicious for pneumonia. He was given ceftriaxone, DuoNebs, Tylenol and IVF with 1.6 L of NS 0.9%. He was admitted to the
hospitalist service and pulmonary service consulted for additional management/recommendations.
Chronic conditions VP SECURITIES: History of RUL lung cancer s/p XRT, history of chronic bronchitis, severe COPD on home oxygen, restrictive lung disease, cachexia, smoker's cough, tobacco use disorder, anxiety, history of scarlet fever, history of pneumonia,
history of chickenpox, history of measles/mumps
Impression:
#Suspected right upper lobe pneumonia in the setting of COVID-19 positive status (SARS-Cov-2 antigen positive today)
- Unclear if this is truly a right upper lobe pneumonia or just postradiation changes
#COPD exacerbation due to above
#Emphysema
#Active tobacco use
#Elevated troponin
#Hyponatremia (mild)
#History of RUL non-small cell lung cancer (squamous of carcinoma) s/p XRT - follows with [facility]
Plan/recommendations
At this time, patient appears to be comfortable on nasal cannula.
93% on 3 L
Does not appear to be in respiratory distress
Mild crackles at right base noted
Mental status appears to be improved. Still profoundly weak
Chest x-ray 06/18/2024 reviewed, vague bilateral infiltrates, cannot rule out right upper lobe pneumonia
Mildly positive procalcitonin, mildly positive troponin noted
Head CT is normal without acute findings
Moving forward
Continue with albuterol QID with spiriva; prn albuterol for breakthrough symptoms
Continue Decadron and wean as tolerated � currently on 6mg IV q24hr, no changes for now. Consider transition to oral therapy, complete 10 days of therapy, started 06/18
Remdesivir has been discontinued
Maintain SpO2 >88-94% with supplemental O2 as needed
Incentive spirometer encouraged
Nicotine patch
ID eval noted. Paxlovid therapy noted
Antibiotics per ID
Wean oxygen as able
Unclear cause of waxing and waning mental status. According to partner at bedside, patient was improved yesterday, today he is turning head and speaking few words but not following commands. He does withdraw all extremities to pain
Further workup per primary service. Seems to wax and wane
VBG without evidence of significant CO2 retention
Reviewed medications. No narcotics or sedatives noted. Patient on buspirone
Partner at bedside states that this has been waxing waning over the last week
Reviewed importance of tobacco cessation
DVT ppx: Remains on Lovenox
Patient follows with us in the [facility] office with last visit with Dr. Brasher on 03/20/2024. Patient will follow-up with Dr. Brasher again following discharge.
Follow-up information left in chart
Will sign off. Please call with questions
Data:
CXR 06/18/2024:
Right upper lobe airspace opacity, suspicious for pneumonia.
The lungs are mildly hyperinflated, likely sequelae of COPD.
Subjective Data
-
Date of Service:
Date of Service: June 22, 2024
Subjective:
Patient is without complaints. However when asked, he admits to cough, shortness of breath, chest pain. Appears to be more alert, answering questions. Partner at bedside. Presently on 3 L, 93%
Objective Data
Data Reviewed
Vital Signs / I&O / Oxygen:
Vital Signs
Temp Pulse Resp BP Pulse Ox
97.9 F 79 16 140/86 93
06/22/24 11:00 06/22/24 11:37 06/22/24 11:37 06/22/24 11:00 06/22/24 11:37
Intake and Output
06/21/24 06/22/24 06/23/24
06:59 06:59 06:59
Intake Total 880 / 880 340 / 340
Balance 880 / 880 340 / 340
SaO2 93
Nasal Cannula flow liters per 3
minute
Physical Exam
General: Comfortable (Cachectic)
HEENT: Normocephalic
Cardiovascular: S1-S2, Regular Rhythm, Murmur (n) and Rub (n)
Respiratory: Wheeze (n), Crackles (Few right base), Rhonchi (n), Non-Labored Respirations, Stridor (n) and Other (Poor inspiratory effort, slightly decreased left base)
GI: Soft and Non Distended
Neurology: Awake, Alert and No Motor Deficits (Moves extremities, sits up, pulls himself up without assistance. Generally weak)
Skin: Cyanosis (n) and Rash (n)
Labs/Micro/Reports
Lab Data
06/22/24 10:16
06/22/24 10:16
[2024-06-22] MEDS: LOVENOX 40 MG SC (17:18)
[2024-06-22 19:36] VITALS: BP 152/89
[2024-06-22 23:49] VITALS: BP 150/92
[2024-06-23 03:29] VITALS: BP 155/85
[2024-06-23 07:30] VITALS: BP 124/83
[2024-06-23] MEDS: SPIRIVA RESPIMAT 2.5 MCG 2 PUFF INH (08:02)
[2024-06-23] MEDS: SYMBICORT 80/4.5 MCG INHALER 2 PUFF INH ×2 (08:03→20:56)
[2024-06-23] MEDS: ProAIR HFA INHALER 2 PUFF INH (08:03)
[2024-06-23] MEDS: VIBRAMYCIN 100 MG PO ×2 (09:10→21:11)
[2024-06-23] MEDS: CEFTIN 500 MG PO ×2 (09:10→21:11)
[2024-06-23] MEDS: BUSPAR 7.5 MG PO ×4 (09:10→21:19)
[2024-06-23] MEDS: NICODERM TRANSDERMAL 14 MG TRANSDERM (09:10)
[2024-06-23] MEDS: MIRALAX 17 GRAMS PO (09:11)
[2024-06-23] MEDS: PAXLOVID 2X150 MG-100 MG DOSE PACK 1 DOSE PO ×2 (09:14→21:10)
[2024-06-23] MEDS: XANAX 1 MG PO ×2 (09:35→21:13)
--- NOTE | 2024-06-23 10:00 | W.PN.HOSP.TC ---
Today's Communication/Plan
-
Monitor vital signs see plan
Continue to monitor cognitive status. If does not improve then will need neurology evaluation
Restart alprazolam
Can increase buspirone to home dose once Paxlovid is finished and patient is still agitated
Speech following
Maintain oxygenation
Assessment / Plan
Assessment / Plan
Physical exam:
General: Acutely ill
HEENT: Normocephalic, Atraumatic and Moist Mucous Membranes
Respiratory: Clear to Auscultation; Negative Wheezes
Cardiac: Regular Rhythm and S1/S2
GI: Soft, Nontender and Nondistended
Musculoskeletal: No Clubbing, No Cyanosis and No Edema
Neuro: Awake, Alert
Psych: agitated
A/P:
Acute on chronic hypoxic respiratory failure likely related to bacterial pneumonia and COVID-19 (unvaccinated):
Antibiotics
Steroids
Incentive spirometry
Bronchodilators
PT OT eval
Oxygen supplement
baseline home oxygen is 3 L/M, currently now on 3 L
Sepsis due to pneumonia:
Appears also have superimposed bacterial pneumonia
Seen and reviewed chest x-ray by myself and agree with opacity in the right upper lobe
Continue cefuroxime and oral doxycycline
Follow-up cultures
Checked sputum culture and negative
Checked strep and Legionella and negative
Speech therapy evaluation for swallow eval rec minced diet 2/2 cognition; they will continue to follow
PT OT eval rec SNF
Pulmonary consult appreciated
Discussed with , Amy at bedside today
Toxic metabolic encephalopathy:
Likely related to COVID-19. Initially more sepsis related. Medications could contribute as well-He is on necessary regimen of steroids and also takes benzodiazepine that have been adjusted as well.
CT scan negative for any acute intracranial normality
Discussed with the , appears mental status is now improving. per spouse today mental status is improving however still not at baseline.
Monitor mental status and behavior closely; appears mental status improving however now more anxious. his benzos were held on admission which i will start today
If cognitively does not improve then will need neurology evaluation
COVID-19:
Started on IV dexamethasone 6 mg daily
ID signed off
Started on Paxlovid; last dose 8/9 night
Due to the usual interactions, some of his medications on hold.
Incentive spirometry
Droplet and contact precautions
Bradycardia during night of admission
Remdesivir was held and ID consulted and recommended switch to Paxlovid.
Hypokalemia
Monitor, replete
Hx of RUL SCC dx 03/17/2023
completed XRT ~1 yr ago
Elevated troponin due to non-ischemic myocardial injury due to worsening hypoxia and sepsis:
dermatology physician
peak 0.2
No chest pain
severe protein calorie malnutrition
Brugada syndrome:
Patient incidentally found Brugada but looking back in his records he also had the same EKG pattern of Brugada back in 2020.
Cardiology consulted in the ED
Cardiology felt that since no evidence of syncope at the moment, he can be referred to outpatient EPS for further evaluation.
Keep electrolytes with potassium above 4 and magnesium above 2
Cardiac monitoring for now
COPD:
Bronchodilators in the form of inhalers QID (unable to do Nebs due to Covid unless absolutely required)
No strong need for systemic steroids from COPD perspective but given COVID-19 positive so started him on steroids and will cover both.
Constipation
Laxatives
Anxiety:
benzos restarted
cw lower dose buspirone until done with paxlovid
BPH:
Flomax on hold due to Paxlovid
Smoker:
Nicotine patch
Pt is still smoking, but smaller quantity than used to smoke
DVT prophylaxis:
Lovenox 40 mg SQ daily
CODE STATUS:
Full code
Total time spent on today's encounter was 52 minutes which included time spent in counseling the patient/family regarding diagnosis and treatment plan as listed above, goals of care, and symptom management. Case was discussed with nursing staff,
specialists, and care coordinators/case management. All labs and imaging personally reviewed by me. Remainder the time spent in detailed review of previous records, lab data, imaging, and other medical provider documentation.
Discussed with friend at bedside
Anticipated Discharge: 24 - 48 hours
Subjective/Interval History
-
Date of Service: June 23, 2024
anxious this morning
Objective Data
-
Labs:
Laboratory Results
06/23/24
06:00
WBC Pending
Hgb Pending
Hct Pending
Plt Count Pending
Sodium Pending
Potassium Pending
Chloride Pending
Carbon Dioxide Pending
BUN Pending
Creatinine Pending
Glucose Pending
Calcium Pending
Vital Signs:
Vital Signs
Temp Pulse Resp BP Pulse Ox
98.0 F 72 16 124/83 94
06/23/24 07:30 06/23/24 08:18 06/23/24 08:18 06/23/24 07:30 06/23/24 08:18
I&O
06/22/24 06/23/24 06/24/24
06:59 06:59 06:59
Intake Total 340 / 340 720 / 720
Balance 340 / 340 720 / 720
[2024-06-23 11:00] VITALS: BP 149/89
[2024-06-23 11:45] LABS: Blood Urea Nitrogen 30 mg/dl (9-20); Calcium 8.9 mg/dl (8.4-10.2); Carbon Dioxide 25 mmol/L (22-30); Chloride 102 mmol/L (98-107); Estimated Creatinine Clearance 85 ml/min; Glucose 147 mg/dl (70-99); Potassium 3.7 mmol/L (3.5-5.1); Sodium 135 mmol/L (135-145); eGFR > 60.00
[2024-06-23 11:58] LABS: % Basophils 0.2 % (0-2); % Immature Granulocytes 2.2 % (0-0.5); % Lymphocytes 7.8 % (20.5-51.1); % Monocytes 7.4 % (1.7-9.3); % Neutrophils 82.4 % (42.2-75.2); Absolute Immature Granulocytes 0.2 10^3/uL (0-0.05); Absolute Lymphocytes 0.7 10^3/uL (1.2-3.4); Absolute Monocytes 0.7 10^3/uL (0.1-0.6); Absolute Neutrophils 7.8 10^3/uL (1.4-6.5); Hematocrit 42.2 % (39.0-52.0); Hemoglobin 15.2 g/dL (13.0-18.0); Mean Corpuscular Hgb 30.2 pg (27.0-31.0); Mean Corpuscular Volume 83.9 fL (80.0-94.0); Mean Platelet Volume 10.6 fL (7.4-10.4); Nucleated Red Blood Cells % 0 % (-); Platelet Count 303 10^3/uL (130-400); Red Blood Cell Count 5.03 10^6/uL (4.70-6.10); Red Cell Dist. Width 13.7 % (11.5-14.5); White Blood Cell Count 9.5 10^3/uL (4.8-10.8)
[2024-06-23] MEDS: DECADRON 6 MG IV (12:05)
--- NOTE | 2024-06-23 16:50 | CM ---
On home oxygen . On 3 liters here in [facility] 98%
PT eval +VN VS SNF.Pt family declined SNF.
As per [facility] accepted him at [facility].
Continues IV Decadron.
Continues Paxlovid for positive Covid.
PLAN Home with VN
[2024-06-23] MEDS: LOVENOX 40 MG SC (17:34)
[2024-06-24 00:07] VITALS: BP 115/70
--- NOTE | 2024-06-24 06:18 | PTCARENOTE ---
Patient pulled out his right wrist IV site. Next IV medications due at 11am. Advised IV team.
[2024-06-24 06:46] LABS: % Basophils 0.1 % (0-2); % Immature Granulocytes 2.1 % (0-0.5); % Lymphocytes 8.2 % (20.5-51.1); % Monocytes 7.9 % (1.7-9.3); % Neutrophils 81.7 % (42.2-75.2); Absolute Immature Granulocytes 0.2 10^3/uL (0-0.05); Absolute Lymphocytes 0.6 10^3/uL (1.2-3.4); Absolute Monocytes 0.6 10^3/uL (0.1-0.6); Absolute Neutrophils 6.2 10^3/uL (1.4-6.5); Hematocrit 39.9 % (39.0-52.0); Hemoglobin 14.5 g/dL (13.0-18.0); Mean Corp Hgb Conc. 36.3 g/dL (33.0-37.0); Mean Corpuscular Hgb 30.3 pg (27.0-31.0); Mean Corpuscular Volume 83.5 fL (80.0-94.0); Mean Platelet Volume 9.9 fL (7.4-10.4); Nucleated Red Blood Cells % 0 % (-); Platelet Count 308 10^3/uL (130-400); Red Blood Cell Count 4.78 10^6/uL (4.70-6.10); Red Cell Dist. Width 13.3 % (11.5-14.5); White Blood Cell Count 7.6 10^3/uL (4.8-10.8)
[2024-06-24 07:03] LABS: Blood Urea Nitrogen 35 mg/dl (9-20); Calcium 8.7 mg/dl (8.4-10.2); Carbon Dioxide 25 mmol/L (22-30); Chloride 102 mmol/L (98-107); Estimated Creatinine Clearance 85 ml/min; Glucose 108 mg/dl (70-99); Potassium 3.8 mmol/L (3.5-5.1); Sodium 134 mmol/L (135-145); eGFR > 60.00
[2024-06-24 07:30] VITALS: BP 123/75
[2024-06-24] MEDS: XANAX PO ×2 (07:51→08:32)
[2024-06-24] MEDS: CEFTIN 500 MG PO (07:51)
[2024-06-24] MEDS: NICODERM TRANSDERMAL 14 MG TRANSDERM (07:51)
[2024-06-24] MEDS: VIBRAMYCIN 100 MG PO (07:51)
[2024-06-24] MEDS: MIRALAX 17 GRAMS PO (07:52)
[2024-06-24] MEDS: FLOMAX 0.8 MG PO (08:01)
[2024-06-24] MEDS: BUSPAR 15 MG PO (08:01)
[2024-06-24] MEDS: ProAIR HFA INHALER 2 PUFF INH (08:05)
[2024-06-24] MEDS: SPIRIVA RESPIMAT 2.5 MCG 2 PUFF INH (08:05)
[2024-06-24] MEDS: SYMBICORT 80/4.5 MCG INHALER 2 PUFF INH (08:05)
--- NOTE | 2024-06-24 09:07 | W.PN.HOSP.TC ---
Addendum entered and electronically signed by Coleen Franks MD 06/24/24 13:25:
total DC time 38 min
Addendum entered and electronically signed by Coleen Franks MD 06/24/24 12:16:
# pt unable to ambulate safely without device and unable to ambulate distance to powder room on 1st floor safely, needs both RW and commode to prevent falls at home
Original Note:
Today's Communication/Plan
-
see A/P
Assessment / Plan
Assessment / Plan
Physical exam:
HEENT: Normocephalic, Atraumatic and Moist Mucous Membranes
Respiratory: Clear to Auscultation; Negative Wheezes
Cardiac: Regular Rhythm and S1/S2
GI: Soft, Nontender and Nondistended
Musculoskeletal: No Clubbing, No Cyanosis and No Edema
Neuro: Awake, Alert, orientated to place (able to tell he's at ) and time (able to tell it is June 2024)
Psych: agitated
A/P:
Acute on chronic hypoxic respiratory failure likely related to bacterial pneumonia and COVID-19 (unvaccinated):
Antibiotics now on Ceftin and doxycycline
Steroids Decadron 6 mg daily
Incentive spirometry, Bronchodilators
PT OT eval recc SNF vs , SO has elected HH
Cont Oxygen supplementation, baseline home oxygen is 3 L/M, currently now on 3 L
Sepsis due to pneumonia:
Appears also have superimposed bacterial pneumonia
Seen and reviewed chest x-ray and agree with opacity in the right upper lobe
Continue cefuroxime and oral doxycycline through 06/24.
Resp culture normal richard
Strep and Legionella Ag negative
Speech therapy evaluation for swallow eval rec minced diet 2/2 cognition; they will continue to follow
PT OT eval recc SNF vs HH
Pulmonary consult appreciated
Acute metabolic encephalopathy:
Likely related to COVID-19. Initially more sepsis related. Medications could contribute as well-He is on necessary regimen of steroids and also takes benzodiazepine that have been adjusted as well.
CT scan negative for any acute intracranial normality
Per spouse today mental status is improving however still not at baseline (remain confused).
Monitor mental status and behavior closely; appears mental status improving however now more anxious. his benzos was held on admission which was restart 06/23 (Xanax restated at decreased frequency BID instead of QID)
If cognitively does not improve then will need neurology evaluation
Suspect there is underling undiagnosed dementia which has been made apparent with acute infection, recc to have pt do cognitive eval outpt with PCP and Neuro.
COVID-19:
s/p IV dexamethasone 6 mg daily x6 days, cont 4 more days following discharge to complete 10 days course
ID signed off
s/p Paxlovid; last dose 06/23 night
Incentive spirometry
Droplet and contact precautions
Bradycardia during night of admission
Remdesivir was held and ID consulted and recommended switch to Paxlovid.
Hypokalemia
Monitor, repleted
Hx of RUL SCC dx 03/17/2023
completed XRT ~1 yr ago
Elevated troponin due to non-ischemic myocardial injury due to worsening hypoxia and sepsis:
quality assurance monitor final
peak 0.2
No chest pain
severe protein calorie malnutrition
Brugada syndrome:
Patient incidentally found Brugada but looking back in his records he also had the same EKG pattern of Brugada back in 2020.
Cardiology consulted in the ED
Cardiology felt that since no evidence of syncope at the moment, he can be referred to outpatient EPS for further evaluation.
Keep electrolytes with potassium above 4 and magnesium above 2
Cardiac monitoring for now
COPD:
Bronchodilators in the form of inhalers QID (unable to do Nebs due to Covid unless absolutely required)
No strong need for systemic steroids from COPD perspective but given COVID-19 positive so started him on steroids and will cover both.
Constipation
Laxatives
Anxiety:
benzos restarted
cw buspirone
BPH:
Flomax on hold due to Paxlovid
Smoker:
Nicotine patch
Pt is still smoking, but smaller quantity than used to smoke
DVT prophylaxis: Lovenox 40 mg SQ daily
CODE STATUS: Full code
DW SO at bedside
Anticipated Discharge: Today
Subjective/Interval History
-
Date of Service: June 24, 2024
Objective Data
-
Labs:
Laboratory Results
06/24/24
06:08
WBC 7.6
Hgb 14.5
Hct 39.9
Plt Count 308
Sodium 134 L
Potassium 3.8
Chloride 102
Carbon Dioxide 25
BUN 35 H
Creatinine 0.6 L
Glucose 108 H
Calcium 8.7
Vital Signs:
Vital Signs
Temp Pulse Resp BP Pulse Ox
36.5 C 72 18 123/75 98
06/24/24 07:30 06/24/24 08:30 06/24/24 08:30 06/24/24 07:30 06/24/24 08:30
I&O
06/23/24 06/24/24 06/25/24
06:59 06:59 06:59
Intake Total 720 / 720 960 / 960
Balance 720 / 720 960 / 960
Review of Systems
-
Unable to obtain full review of systems at this time due to: Dementia (likely undiagnosed underlying dementia)
Data Reviewed
-
Labs: Labs Reviewed by me
[2024-06-24] MEDS: DECADRON IV (11:22)
[2024-06-24 12:14] VITALS: BP 120/78
--- NOTE | 2024-06-24 12:43 | CM ---
CM reviewed chart and noted dc order
Call to pt's room and reviewed pt with significant other/Amy
She is requesting [facility] be arranged and requesting [facility] and commode also be arranged
IMM verbally reviewed- copy provided by nursing
Update to [facility] via [facility]- accepted for service
VN order on chart
Scripts received from Dr Franks
therapy, [facility] [employer] unable to provide DME insurance
Referral made to [facility] and clinicals faxed to [phone]
Delivery today or tomorrow, SO in agreement with plan
Discharge Disposition- home with [facility] and [facility]/comm[facility] through [facility]/spouse transport
--- NOTE | 2024-06-24 12:46 | W.DCSUMMARY ---
Discharge Summary
Discharge Data
Date of Admission: 06/18/24
Date of Discharge: 06/24/24
-
Pending Results: No
Hospital Course
Principal Diagnosis:
Acute on chronic hypoxic respiratory failure due to bacterial pneumonia and COVID-19 pneumonia.
Acute metabolic encephalopathy.
Brugada syndrome.
Chronic Diagnoses:�
Severe protein calorie malnutrition
Chronic obstructive pulmonary disease
Anxiety on Xanax and buspirone prior to admission
Benign prostate hypertrophy
Active smoker
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
Consultations:�
Infectious disease
Pulmonary
Cardiology
Procedures:�
None
Clinical course:�
This is a 73-year-old male, with past medical history as stated above, who presented with cough and shortness of breath.
Problem 1:
Acute on chronic hypoxic respiratory failure due to bacterial pneumonia and COVID-19 pneumonia.
His chest x-ray noted opacity in the right upper lobe.
The patient had completed antibiotics Ceftin and doxycycline while in the hospital.
He also receive Paxlovid and completed course while in the hospital.
He was given IV Decadron, and can continue with 4 more days to complete 10 day course following discharge.
He can continue with oxygen supplementation at 3 L nasal cannula which is his home requirement.
He can continue with mince diet due to cognition per speech eval.
Problem 2:
Acute metabolic encephalopathy, likely related to COVID-19 and undiagnosed dementia.
His CT head was negative for acute intracranial abnormality.
Per spouse his mental status has improved yet not back to baseline.
Due to his agitation, his prior to admission Xanax was resumed but at decreased frequency (twice daily from 4 times daily previously).
His spouse has been informed to have the patient evaluated outpatient for neurocognitive assessment, for likely undiagnosed dementia.
Problem 3:
Brugada syndrome.
Cardiology was consulted and recommend the patient to be evaluated outpatient by EPS.
As for the rest of his medical problems, they were stable during his hospital stay.
Discharge Plan
-
Patient Disposition: Home with Home Care
Discharge Diagnosis/Procedures: COVID-19 infection; bacterial pneumonia; acute on chronic hypoxia; confusion
Condition: Fair
Diet: As tolerated and Other diet
Additional Diets: minced and moist diet
Activity: As tolerated
Driving Restrictions: No driving
Activity Restrictions/Additional Instructions:
[facility] outpatient neurocognitive eval for dementia work up
Referrals:
Luiz Barrios MD [Family Provider] - in less than 1 week
Joni Danielson MD [Active] - in three to four weeks (SPEEDER TENDER or MD)
Additional Discharge Medication Instructions: Continue decreased Xanax frequnecy (twice daily instead of 4 times daily). If you can stop Xanax, that would be even better.
Stop Atarax (it can cause confusion).
Continue steroid decadron for 4 more days
Prescriptions:
New
dexamethasone 6 mg tablet
6 mg PO DAILY Qty: 4 0RF
Continued
ipratropium-albuterol 3 ML solution for nebulization
3 ml inhalation Q4H PRN (Reason: shortness of breath) Qty: 40 0RF
albuterol sulfate [Proventil HFA] 90 MCG/PUFF HFA aerosol inhaler
1 puff inhalation Q4HPRN PRN (Reason: shortness of breath) Qty: 1 0RF
azithromycin 250 mg Tablet
250 mg PO MOWEFR
Trelegy Ellipta 100-62.5-25 mcg Blister With Device
1 inh INHALATION Q24H
buspirone
15 mg PO QID
Anoro Ellipta 62.5-25 mcg/actuation Blister With Device
1 inh INHALATION DAILY
Changed
alprazolam 0.25 MG tablet
1 mg PO BID Qty: 0 0RF
Discontinued
gabapentin 100 mg Capsule
300 mg PO 5/D
hydroxyzine HCl [Atarax] 25 mg Tablet
25 mg PO BID PRN (Reason: anxiety)
doxycycline hyclate 100 MG capsule
100 mg PO BID
Discharge Orders:
Discharge Patient (As Directed); Ordered 06/24/24
Ordered By: Coleen Franks
Discharge Date and Time
Discharge Date/Time: 06/24/24 12:48
Print Language: INDONESIAN
== END 2024-06-24 12:48 | disposition home health service (06) | DRG 871 ==
LOC: 2 NORTH 09:46
PROVIDERS: Internal Medicine; Nurse Practitioner Gerontology; Registered Nurse; ADMITTING PHYSICIAN Hospitalist; ATTENDING PHYSICIAN Internal Medicine; CONSULT PHYSICIAN Internal Medicine Critical Care Medicine; EMERGENCY PHYSICIAN Emergency Medicine; FAMILY PHYSICIAN Family Medicine; OTHER PHYSICIAN Internal Medicine Infectious Disease
PROC: XW033E5 Introduction of Remdesivir Anti-infective into Peripheral Vein, Percutaneous Approach, New Technology Group 5 (ICD-10-PCS; 2024-06-18)
DX: A41.9 Sepsis, unspecified organism (principal); E43 Unspecified severe protein-calorie malnutrition; U07.1 COVID-19; G92.8 Other toxic encephalopathy; J96.21 Acute and chronic respiratory failure with hypoxia; J12.82 Pneumonia due to coronavirus disease 2019; J15.9 Unspecified bacterial pneumonia; J44.0 Chronic obstructive pulmonary disease with (acute) lower respiratory infection; I5A Non-ischemic myocardial injury (non-traumatic); R64 Cachexia; Z68.1 Body mass index [BMI] 19.9 or less, adult; J44.1 Chronic obstructive pulmonary disease with (acute) exacerbation; E87.1 Hypo-osmolality and hyponatremia; I49.8 Other specified cardiac arrhythmias; J43.9 Emphysema, unspecified; F41.9 Anxiety disorder, unspecified; F17.210 Nicotine dependence, cigarettes, uncomplicated; R00.1 Bradycardia, unspecified; T37.5X5A Adverse effect of antiviral drugs, initial encounter; N40.0 Benign prostatic hyperplasia without lower urinary tract symptoms; Z99.81 Dependence on supplemental oxygen; Z92.3 Personal history of irradiation; Z85.118 Personal history of other malignant neoplasm of bronchus and lung; Z79.899 Other long term (current) drug therapy; Z79.51 Long term (current) use of inhaled steroids
CPT/HCPCS: 70450; 71045; 80048; 80053; 81003; 81015; 82140; 82248; 82728; 82805; 83605; 83615; 83735; 84145; 84484; 85025; 86140; 87449; 87811; 87899; 92526; 92610; 93005; 94640; 96361; 96374; 97116; 97162; 97166; 97530; 97535; 99285; J0248; J3480

== ENCOUNTER 2024-06-25 19:35 | Inpatient (IN) | payer MEDICARE, SELFPAY ==
[2024-06-25] VITALS (9 sets, daily range): BP systolic 110–152; BP diastolic 69–90; BMI 16.8
[2024-06-25 12:41] LABS: % Basophils 0.2 % (0-2); % Eosinophils 0.1 % (0-6); % Immature Granulocytes 1.3 % (0-0.5); % Lymphocytes 9.1 % (20.5-51.1); % Monocytes 11.2 % (1.7-9.3); % Neutrophils 78.1 % (42.2-75.2); Absolute Immature Granulocytes 0.2 10^3/uL (0-0.05); Absolute Lymphocytes 1.2 10^3/uL (1.2-3.4); Absolute Monocytes 1.4 10^3/uL (0.1-0.6); Absolute Neutrophils 9.9 10^3/uL (1.4-6.5); Hematocrit 37.7 % (39.0-52.0); Hemoglobin 13.9 g/dL (13.0-18.0); Mean Corp Hgb Conc. 36.9 g/dL (33.0-37.0); Mean Corpuscular Hgb 30.2 pg (27.0-31.0); Mean Platelet Volume 9.8 fL (7.4-10.4); Nucleated Red Blood Cells % 0 % (-); Platelet Count 331 10^3/uL (130-400); Red Cell Dist. Width 13.6 % (11.5-14.5); White Blood Cell Count 12.7 10^3/uL (4.8-10.8)
[2024-06-25 12:42] LABS: Urine Albumin Trace (Neg - Trace); Urine Bilirubin Negative (Negative); Urine Character Clear (Clear); Urine Color Yellow; Urine Glucose Negative (Negative); Urine Ketone 1+ (Negative); Urine Leukocyte Negative (Negative); Urine Nitrite Negative (Negative); Urine Occult Blood Negative (Negative); Urine Urobilinogen Negative (Neg - 1+)
[2024-06-25 12:52] LABS: Lactic Acid 1.4 mmol/L (0.7-2.0)
[2024-06-25 12:53] LABS: ALT (SGPT) 54 U/L (0-50); AST (SGOT) 50 U/L (17-59); Albumin 3.9 g/dl (3.5-5.0); Alkaline Phosphatase 64 U/L (38-126); Blood Urea Nitrogen 47 mg/dl (9-20); COVID-19 Antigen Positive (Negative); Calcium 9.1 mg/dl (8.4-10.2); Carbon Dioxide 27 mmol/L (22-30); Chloride 104 mmol/L (98-107); Estimated Creatinine Clearance 74 ml/min; Glucose 112 mg/dl (70-99); Potassium 3.5 mmol/L (3.5-5.1); Sodium 138 mmol/L (135-145); Total Bilirubin 0.9 mg/dl (0.2-1.3); Total Protein 6.3 g/dl (6.3-8.2); eGFR > 60.00
--- NOTE | 2024-06-25 13:04 | EDRN ---
Lobo CHEATHAM currently at the pts bedside
[2024-06-25] MEDS: NSS 500 IV (13:51)
[2024-06-25] MEDS: ATIVAN 0.5 MG IV ×2 (13:51→17:15)
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
--- NOTE | 2024-06-25 18:06 | HPS.HSE ---
Family Physician
-
Family Physician: NO INTERVIEW UNKNOWN
Chief Complaint
-
confusion
History of Present Illness
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
confusion.
There was thought that he may have undiagnosed dementia and his mental status would improve once he returns home; however, he remained lethargic and MS worsened at home. He is now unable to follow direction and mumbles words.
He was found to be hypoxia with pulse ox 80s by EMS (likely too confused to keep his nasal cannula on).
Medical History
Past Medical History
Past Medical History: Reports Other
Additional Past Medical History:
COPD
anxiety
active smoker
right upper lobe spiculated nodule
Past Surgical History: Reports Other (IR lung biopsy 03/17/2023)
Social History
Tobacco: Smoker (3 to 5 cigarettes a day, since age 13)
Alcohol: Former
Living: With Family (Significant other)
Family History
Family History: Not pertinent
Allergies / Home Medications
Allergies reflects when Allergies were last updated in [facility].
Home Medications with original date entered in [facility]
Allergy/Medication List:
Allergies
Allergy/AdvReac Type Severity Reaction Status Date / Time
Penicillins Allergy Unknown/tolerated Verified 06/21/24 15:40
ceftriaxone
Home Medications
albuterol sulfate 90 mcg/actuation aerosol inhaler (Proventil HFA) 1 puff inhalation Q4HPRN PRN shortness of breath ##1 06/12/21
ipratropium 0.5 mg-albuterol 3 mg (2.5 mg base)/3 mL nebulization soln 3 ml inhalation Q4H PRN shortness of breath ##40 06/12/21
azithromycin 250 mg tablet 250 mg PO MOWEFR Infection 03/15/23
buspirone 15 mg PO QID Mental Health/Anxiety 03/15/23
fluticasone fur. 100 mcg-umeclid 62.5 mcg-vilant 25 mcg inhalat.powder (Trelegy Ellipta) 1 inh inhalation Q24H Lung/breathing issues 03/15/23
umeclidinium 62.5 mcg-vilanterol 25 mcg/actuation powdr for inhalation (Anoro Ellipta) 1 inh inhalation DAILY Lung/breathing issues 03/17/23
alprazolam 0.25 mg tablet 1 mg (4 x 0.25 mg) PO BID Mental Health/Anxiety #0 tabs 06/24/24
dexamethasone 6 mg tablet 6 mg PO DAILY #4 tabs 06/24/24
Review of Systems
-
Unable to obtain full review of systems at this time due to: Acuity
Physical Exam
Vital Signs
Vital Signs
Temp Pulse Resp BP Pulse Ox
37.5 C 81 30 141/80 93
06/25/24 12:20 06/25/24 17:15 06/25/24 14:00 06/25/24 17:02 06/25/24 17:22
Physical Exam
General: Well Developed and Appears Chronically Ill; No Conversant
Respiratory: Clear and Non Labored Respirations; No Accessory Resp Muscle Use
Cardiac: S1/S2 and Regular Rhythm
GI: Soft and Non Tender
Neuro: Awake; No Alert
Psych: Confused; No Intact Judgment/Insight
Laboratory Results
-
06/25/24 12:19
06/25/24 12:19
Laboratory Results
Lactic Acid 1.4 mmol/L (0.7-2.0) 06/25/24 12:19
Total Bilirubin 0.9 mg/dl (0.2-1.3) 06/25/24 12:19
AST 50 U/L (17-59) 06/25/24 12:19
ALT 54 U/L (0-50) H 06/25/24 12:19
Alkaline Phosphatase 64 U/L (38-126) 06/25/24 12:19
Data Reviewed
-
CT Scan: Report Reviewed by me
Lab Data: Labs Reviewed by me
Impression/Plan
-
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
confusion.
There was thought that he may have undiagnosed dementia and his mental status would improve once he returns home; however, he remained lethargic and MS worsened at home. He is now unable to follow direction and mumbles words.
He was found to be hypoxia with pulse ox 80s by EMS (likely too confused to keep his nasal cannula on).
CT chest from ED:
No evidence of pulmonary embolism.
COPD. Atelectasis versus scarring in the posterior lung bases, right greater than left. Irregular parenchymal opacity in the right upper lobe and adjacent small nodule remains stable. 5.3 mm spiculated density in the lateral right midlung zone
remains stable.
Interval development of pleural-based 2 x 1 cm ovoid opacity in the posterior right upper lobe. Recommend follow-up in 3 months after conservative therapy.
A/P:
# Acute metabolic encephalopathy likely due to hypoxia vs COVID encephalopathy
# Acute on chronic hypoxic respiratory failure
# Recent bacterial pneumonia and COVID-19 (unvaccinated)
His recent CT head was negative for intracranial abnormality
Check repeat CT Head , IV Ativan for agitation
Check ABG
Would hold PHARMACY BILLING ADJUDICATOR buspirone
Neuro CS. D/W Dr Chavarria, he recc spinal tap by ED, CSF orders placed
Keep O2 support at 3L NC (baseline requirement), restraint with hand mitts if needed
Of note, pt recently completed Paxlovid (last dose 06/23)
He can continue IV Decadron to complete total 10 days course
He was discharged with Ceftin and doxycycline; Check procal to determine need to cont Abx or not
PT OT eval
# Hx of RUL SCC dx 03/17/[address] chest this admission noted interval development of right upper lobe opacity, recommend outpatient follow-up in 3 months
# Recent diagnosis of Brugada syndrome
He can follow-up with cardiology outpatient
# COPD
Cont Bronchodilators with inhalers
# Anxiety
At this point, I would highly recommend to hold further buspirone, continue low-dose Xanax as needed
# BPH
PHARMACY BILLING ADJUDICATOR Flomax
# Smoker
Nicotine patch
DVT prophylaxis: Lovenox 40 mg SQ daily
CODE STATUS: Full code
[2024-06-25] MEDS: ATIVAN 1 MG IV (18:46)
[2024-06-25 18:53] LABS: B.E. 2.8 mmol/L; HCO3 26.1 mmol/L (21-28); O2 Saturation % 96.5 % (94-98); PCO2 35 mmHg (35-48); PO2 67 mmHg (83-108); pH 7.48 (7.35-7.45)
--- NOTE | 2024-06-25 19:09 | PHANOTE ---
med rec note- patient here alone with change in mental status used physician and pharmacy for medications
[2024-06-25] MEDS: ATIVAN 2 MG IV (20:05)
--- NOTE | 2024-06-25 20:50 | PTCARENOTE ---
Pt arrived to floor on stretcher from ED. Pt COVID+, placed on isolation. AAO x 1; limited communication, Pt speech incomprehensible; B/L wrist restraints and 4 bed rails used as per order to prevent Pt from removing IV, O2, etc. SpO2 = 93% on 3L
O2 via NC; Small St II pressure ulcer noted on coccyx - moisture barrier applied. Pt incontinent - condom cath #21 placed. Unable to orient pt to room due to confusion. Will continue to monitor and assess.
--- NOTE | 2024-06-25 21:53 | W.PN.UPDATE ---
Update Note
Progress Note Update
Recommended by the neurologist to start IV antibiotics Ceftriaxone, IV Remdesivir, and LP with IR tomorrow. Order placed as recommended.
[2024-06-25] MEDS: VEKLURY 250 MG IV (22:36)
[2024-06-25] MEDS: ROCEPHIN 2000 MG IV (23:21)
[2024-06-25] MEDS: STERILE WATER FOR INJECTION 20 ML IV (23:21)
[2024-06-26] VITALS (21 sets, daily range): BP systolic 112–158; BP diastolic 63–111; BMI 17.5
[2024-06-26] MEDS: DECADRON 8 MG IV ×3 (01:00→11:39)
[2024-06-26] MEDS: NSS 30 IV (01:01)
[2024-06-26 06:01] LABS: % Basophils 0.2 % (0-2); % Eosinophils 0.1 % (0-6); % Immature Granulocytes 1.2 % (0-0.5); % Lymphocytes 4.7 % (20.5-51.1); % Monocytes 2.6 % (1.7-9.3); % Neutrophils 91.2 % (42.2-75.2); Absolute Immature Granulocytes 0.1 10^3/uL (0-0.05); Absolute Lymphocytes 0.5 10^3/uL (1.2-3.4); Absolute Monocytes 0.3 10^3/uL (0.1-0.6); Absolute Neutrophils 9.2 10^3/uL (1.4-6.5); Hematocrit 37.8 % (39.0-52.0); Hemoglobin 13.6 g/dL (13.0-18.0); Mean Corpuscular Hgb 29.9 pg (27.0-31.0); Mean Corpuscular Volume 83.1 fL (80.0-94.0); Mean Platelet Volume 9.5 fL (7.4-10.4); Nucleated Red Blood Cells % 0 % (-); Platelet Count 280 10^3/uL (130-400); Red Blood Cell Count 4.55 10^6/uL (4.70-6.10); Red Cell Dist. Width 13.5 % (11.5-14.5); White Blood Cell Count 10.1 10^3/uL (4.8-10.8)
[2024-06-26 06:22] LABS: ALT (SGPT) 55 U/L (0-50); AST (SGOT) 48 U/L (17-59); Albumin 3.6 g/dl (3.5-5.0); Alkaline Phosphatase 57 U/L (38-126); Blood Urea Nitrogen 32 mg/dl (9-20); Calcium 8.2 mg/dl (8.4-10.2); Carbon Dioxide 24 mmol/L (22-30); Chloride 104 mmol/L (98-107); Estimated Creatinine Clearance 80 ml/min; Glucose 95 mg/dl (70-99); Magnesium 2.3 mg/dl (1.6-2.3); Potassium 3.8 mmol/L (3.5-5.1); Sodium 135 mmol/L (135-145); Total Bilirubin 0.7 mg/dl (0.2-1.3); eGFR > 60.00
[2024-06-26] MEDS: SYMBICORT 80/4.5 MCG INHALER INH (08:16)
[2024-06-26] MEDS: SPIRIVA RESPIMAT 2.5 MCG INH (08:16)
--- NOTE | 2024-06-26 08:34 | CON.NEURO ---
Neuro Assessment/Plan
Assessment
Abrupt change in mental status
With patient recently experiencing significant and severe COVID-19 infection and bacterial superinfection
Most likely diagnosis is toxic metabolic encephalopathy based on the patient's continued delirium and absence of additional clear etiology. Differential diagnosis however would include stroke due to hypercoagulable state caused by COVID-19 infection
Plan
Due to recent COVID-19 infection, patient may have a hypercoagulable state and therefore MRI of brain to ensure intracranial ischemic lesions have not taken place
Check blood work for additional metabolic abnormalities
Will continue to follow patient. Thank you.
Consultation
Order
Date of Consultation: 06/26/24
Requesting Provider: Hospitalists
Reason for Consult: Change in mental status
Subjective/Objective
Subjective Data
Date of Service: June 26, 2024
Patient presented to this hospital June 18, 2020 for with cough and congestion. Patient was subsequently diagnosed with COVID-19. He developed sepsis and superimposed bacterial pneumonia. He also was described as having an acute metabolic
encephalopathy with his benzodiazepines withheld. As per the discharge summary, the patient was described as having a presumed undiagnosed dementia. As per medical records, the patient was described as being disoriented June 20, 2024.
The patient however returned to this hospital's emergency department 06/25/2020 for due to persistent confusion. The patient was described as being unable to follow directions and mumbling words. He was also found to have significant hypoxia with a
pulse ox in the 80s. After discussion with the on-call neurologist, decision was made to have the patient undergo lumbar puncture. The patient was also initiated on ceftriaxone and remdesivir.
Objective Data
Vital Signs
Temp Pulse Resp BP Pulse Ox
36.8 C 93 22 145/88 95
06/26/24 07:53 06/26/24 08:17 06/26/24 08:17 06/26/24 04:00 06/26/24 08:17
Lab Results
06/26/24 05:28
06/26/24 05:28
Sodium 135 mmol/L (135-145) 06/26/24 05:28
Potassium 3.8 mmol/L (3.5-5.1) 06/26/24 05:28
BUN 32 mg/dl (9-20) H 06/26/24 05:28
Glucose 95 mg/dl (70-99) 06/26/24 05:
Calcium 8.2 mg/dl (8.4-10.2) L 06/26/24 05:28
Patient Allergies
Penicillins Allergy (Verified 06/21/24 15:40)
Unknown/tolerated ceftriaxone
Physical Exam
-
General: No Apparent Distress, Cachectic, Older than Stated Age and Restrained (With bilateral upper extremities)
Eyes: Round OU, [place] Conjunctivae and No Ptosis; Negative Able to visualize OU (Patient resistant)
HEENT: Anicteric and Moist Mucous Membranes
Neck: Full Range of Motion
Respiratory: No Dyspnea
Cardiac: No JVD
GI: Non-distended
Skin: Unremarkable
Extremities: No Clubbing, No Cyanosis and No Edema
Psych: Negative Intact Judgement/Insight
Extended Neurological Exam
Mood & Affect: Anxious
Attention Span & Concentration: Awake, Interactive, Unable to Perform 2 Step Request and Other (Resists some portions of examination, tangential with questions); Negative Alert
Memory: Able to Recall (Month, location), Reduced (For the recall of the year) and Unable to Recall Personal History
Tremor: Hand Tremor Absent and Head Tremor Absent
Involuntary Movement: None
Speech: Quantity Unremarkable and Other (Mumbled at times)
Cranial Nerve II: Left Eye: Pupillary Reactivity Unremarkable, Pupillary Size Unremarkable and Visual [place] Grossly Intact
Cranial Nerve II: Right Eye: Pupillary Reactivity Unremarkable, Pupillary Size Unremarkable and Visual [place] Grossly Intact
Cranial Nerves III, IV, : Extraocular Movement: Grossly Intact
Cranial Nerve V: Facial Sensation: Unable to Assess
Cranial Nerve VII: Facial Symmetry: Normal Facial Symmetry
Cranial Nerve VIII: Hearing: Unremarkable Hearing to Normal Conversational Volume
Cranial Nerve XI: Shoulder Shrug: Unremarkable
Cranial Nerve XII: Tongue Protusion: Midline
Muscle Strength, Overall: Full Throughout
Muscle Bulk & Tone: Bulk Unremarkable and Tone Unremarkable
Pronator Drift: Unable to Assess
Deep Tendon Reflexes: Trace Throughout
Cold Sensation: Unable to Assess
Vibration Sensation: Unable to Assess
Touch Sensation: Unremarkable
Coordination: Unable to Assess (Bilateral upper extremity restraints)
Babinski Sign: Absent Bilaterally
Gait & Station: Unable to Assess
Data Reviewed
-
CT Head: Report Reviewed
Labs: Report Reviewed
Reviewed with: Physician and Nurse
Old Records: Summarized
Medications
-
Active Medications
Generic Name Dose Route Start Last Admin
Trade Name Freq PRN Reason Stop Dose Admin
Acetaminophen 650 mg 06/25/24 20:46
Acetaminophen 325 Mg Tablet PO 07/23/24 20:45
Q4HPRN PRN
mild pain/OROZCO/temp> 100.4F
Bisacodyl 10 mg 06/25/24 20:46
Bisacodyl 10 Mg Rectal Suppository RECTAL 07/23/24 20:45
[id number] PRN
constipation
Budesonide/Formoterol Fumarate 2 puff 06/26/24 08:00 06/26/24 08:16
Symbicort Inhaler 80/4.5 INH 07/24/24 07:59 Not Given
R BID CRISTELA
Ceftriaxone Sodium 2,000 mg 06/25/24 22:00 06/25/24 23:21
Ceftriaxone 2,000 Mg/20 Ml Vial IV 2,000 mg
Q12H CRISTELA Administration
Dexamethasone Sodium Phosphate 8 mg 06/26/24 00:00 06/26/24 05:03
Dexamethasone 4 Mg/Ml 1 Ml Vial IV 07/24/24 00:00 8 mg
Q6 CRISTELA Administration
Enoxaparin Sodium 40 mg 06/26/24 18:00
Enoxaparin Sodium 40 Mg/0.4 Ml Syringe SC 07/24/24 17:59
QPM CRISTELA
Olodaterol 2 puff 06/26/24 08:00 06/26/24 08:16
Olodaterol (Striverdi Respimat) 2.5 Mcg Inhaler INH 07/24/24 07:59 Not Given
R DAILY CRISTELA
Polyethylene Glycol 17 grams 06/25/24 20:46
Polyethylene Glycol Powder 17 Grams Packet PO 07/23/24 20:45
DAILYPRN PRN
constipation
Senna/Docusate Sodium 1 tablet 06/25/24 20:46
Docusate W/Senna (Christelle-Colace) Tablet PO 07/23/24 20:45
BIDPRN PRN
constipation
Sodium Chloride 0 flush 06/25/24 20:00
Sodium Chloride 0.9% (Flush) Syringe IV 07/23/24 19:59
PER PROTOCOL CRISTELA
Sterile Water 20 ml 06/25/24 22:00 06/25/24 23:21
Sterile Water For Injection 20 Ml Vial IV 07/23/24 21:59 20 ml
BID@1000,2200 RCISTELA Administration
Tiotropium Nutrioso 2 puff 06/26/24 08:00 06/26/24 08:16
Tiotropium (Spiriva Respimat) 2.5 Mcg Inhaler INH 07/24/24 07:59 Not Given
R DAILY CRISTELA
Home Medications
�Medication �Instructions �Recorded
buspirone 15 mg tablet 15 mg PO QID Mental Health/Anxiety 03/15/23
##0
fluticasone fur. 100 mcg-umeclid 1 inh inhalation R DAILY 03/15/23
62.5 mcg-vilant 25 mcg Lung/breathing issues
inhalat.powder (Trelegy Ellipta)
albuterol sulfate 90 mcg/actuation 2 puff inhalation R Q6HPRN PRN sob 06/25/24
aerosol inhaler
alprazolam 0.25 mg tablet 1.5 mg PO BID Mental Health/Anxiety 06/25/24
dexamethasone 1 mg tablet 6 mg PO .BIDX4D inflammation 06/25/24
gabapentin 300 mg capsule 300 mg PO 5/D neuropathic pain 06/25/24
hydroxyzine HCl 50 mg tablet 50 mg PO BID 06/25/24
antihistamine/antiemetic
levalbuterol HCl 0.63 mg/3 mL 0.63 mg inhalation R TIDPRN PRN sob 06/25/24
solution for nebulization
mirabegron 25 mg tablet,extended 25 mg PO DAILY Urinary Issue 06/25/24
release 24 hr (Myrbetriq)
tamsulosin 0.4 mg capsule (Flomax) 0.4 mg PO DAILY Urinary Issue 06/25/24
Past History
Past History
ED Past Medical History: Cancer, COPD (Home O2), Psychiatric (anxiety) and Other (Measles, mumps, chickenpox, scarlet fever, pneumonia)
ED Past Surgical History: Other (Lung biopsy followed by pneumothorax 2018, cataract extraction)
Social History
Tobacco: Smoker
Drug: None
Personal: Other ( )
Family History
Family History: Other (Reviewed and noncontributory)
--- NOTE | 2024-06-26 08:51 | W.PN.HOSP.TC ---
Today's Communication/Plan
-
Continue oxygen as needed
MRI Brain
Assessment / Plan
Assessment / Plan
Physical Exam
General: Not in acute distress
Respiratory: Clear to Auscultation Bilaterally
Cardiac: S1/S2 and Regular Rhythm
GI: Soft and Non Tender. Positive bowel sounds.
Neuro: Awake, Alert.
Psych: Confused; No Intact Judgment/Insight

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
confusion.
There was thought that he may have undiagnosed dementia and his mental status would improve once he returns home; however, he remained lethargic and MS worsened at home. He is now unable to follow direction and mumbles words.
He was found to be hypoxia with pulse ox 80s by EMS (likely too confused to keep his nasal cannula on).
CT chest from ED:
No evidence of pulmonary embolism.
COPD. Atelectasis versus scarring in the posterior lung bases, right greater than left. Irregular parenchymal opacity in the right upper lobe and adjacent small nodule remains stable. 5.3 mm spiculated density in the lateral right midlung zone
remains stable.
Interval development of pleural-based 2 x 1 cm ovoid opacity in the posterior right upper lobe. Recommend follow-up in 3 months after conservative therapy.
Assessment/Plan
# Acute metabolic encephalopathy likely due to hypoxia vs COVID encephalopathy
# Acute on chronic hypoxic respiratory failure
# Recent bacterial pneumonia and COVID-19 (unvaccinated)
His recent CT head was negative for intracranial abnormality
Repeat CT Head unremarkable, IV Ativan for agitation
Would hold [employer] buspirone
Neuro consulted, appreciate evaluation
LP pending
MRI brain
Keep O2 support at 3L NC (baseline requirement), restraint with hand mitts if needed
Of note, pt recently completed Paxlovid (last dose 06/23)
He can continue IV Decadron to complete total 10 days course
He was discharged with Ceftin and doxycycline; no need for further antibiotics as per ID.
PT OT eval
Appreciate pulmonary and ID
# History of of RUL SCC diagnosis 03/17/[address]23
CT chest this admission noted interval development of right upper lobe opacity, recommend outpatient follow-up in 3 months
# Recent diagnosis of Brugada syndrome
He can follow-up with cardiology outpatient
# COPD
Cont Bronchodilators with inhalers
# Anxiety
At this point, I would highly recommend to hold further buspirone, continue low-dose Xanax as needed
# BPH
[employer] Flomax
# Smoker
Nicotine patch
DVT prophylaxis: Lovenox 40 mg SQ daily
CODE STATUS: Full code
Anticipated Discharge: 24 - 48 hours
Subjective/Interval History
-
Date of Service: June 26, 2024
Patient was seen and examined. He was restless as per nurse.
Objective Data
-
Labs:
Laboratory Results
06/26/24 06/26/24
05:28 07:23
WBC 10.1
Hgb 13.6
Hct 37.8 L
Plt Count 280
PT Pending
INR Pending
Sodium 135
Potassium 3.8
Chloride 104
Carbon Dioxide 24
BUN 32 H
Creatinine 0.5 L
Glucose 95
Calcium 8.2 L
Total Bilirubin 0.7
AST 48
ALT 55 H
Alkaline Phosphatase 57
Vital Signs:
Vital Signs
Temp Pulse Resp BP Pulse Ox
98.3 F 93 22 145/88 95
06/26/24 07:53 06/26/24 08:17 06/26/24 08:17 06/26/24 04:00 06/26/24 08:17
[2024-06-26] MEDS: STERILE WATER FOR INJECTION 20 ML IV (09:24)
[2024-06-26] MEDS: ROCEPHIN 2000 MG IV (09:27)
--- NOTE | 2024-06-26 09:48 | CON.ID ---
Consultation
-
Date/Time Consultation Requested: June 25, [id number]
Date/Time Consultation Performed: June 26, 2024 0950
Requesting Provider: DIANDRA Nunes
Performing Provider: Dr. Yvette Myers
Reason for Consultation: Confusion, s/p bacterial pneumonia and COVID
Chief Complaint / Past History
Chief Complaint
Persistent confusion
History of Present Illness
History obtained from the medical records and from patient who is confused and poor historian. He is a 73-year-old male with history of lung cancer status post radiation, severe COPD on chronic 3 L of home O2 with activity, tobacco use disorder
who was ecently hospitalized from June 16 to June 24 with symptomatic COVID-19 infection, acute on chronic hypoxic respiratory insufficiency, and superimposed bacterial pneumonia. He received 1 dose of Remdesivir but developed bradycardia. ID
was consulted. He completed a 5-day course of Paxlovid and 7-day course of doxycycline plus cephalosporin for superimposed bacterial pneumonia. Mental status improved but not back to baseline. He was discharged to home on June 24.However he
returned to the ER on June 25 due to worsening mental status with lethargy. He was not able to follow commands. His pulse ox was in the 80s on room air. Patient was too confused to keep his nasal cannula on. COVID antigen remains positive.
Oxygen status improved to 2L. He was evaluated by neurology last night who recommended LP, remdesivir, and ceftriaxone. Patient states he is well. He denies OROZCO/neck stiffness. No SOB. Cough back to baseline. No diarrhea. No urinary sxs.
Past History
Additional Past Medical History:
Severe COPD
Chronic hypoxemic respiratory failure on home 02 3L with activity
Tobacco use disorder
BPH
Anxiety
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
COVID19 infection (06/18/24) treated with Paxlovid
Allergy History:
Penicillins Allergy (Verified 06/21/24 15:40)
Unknown/tolerated ceftriaxone
Medications Reviewed: Yes
Current Antibiotics:
s/p Remdesivir x1
Ceftriaxone 2g IV q12
Social History
Tobacco: Smoker
Alcohol: Former
Drug: None
Personal:
Family History
Family History: Not Pertinent
Review of Systems
Review of Systems
General: Negative Fever or Chills
HEENT: Negative Stiff Neck, Sinus Problems, Headache or Pharyngitis
Cardiovascular: Negative Chest Pain or Dyspnea
Respiratory: Cough (baseline); Negative Dyspnea
Gasteroenterology: Other (no diarrhea); Negative Nausea or Vomiting
Genital / Urological: Negative Flank Pain
Neurological: Negative Headache
Vital Signs
Temp Pulse Resp BP Pulse Ox
98.3 F 93 22 145/88 95
06/26/24 07:53 06/26/24 08:17 06/26/24 08:17 06/26/24 04:00 06/26/24 08:17
Physical Exam
Physical Exam
Constitutional: Acutely Ill and Cachetic
Head: Other (No frontal or maxillary sinus tenderness)
Eyes: No Conjunctival Hemorrhage and Sclera Anicteric
Oral: No Thrush
Cardiovascular: Regular Rate and S1/S2
Pulmonary: Clear
Gastrointestinal: Soft and Non Distended
Genito-Urinary: Negative CVA Tenderness
Extremities: Negative Edema
Neurological: Awake, Alert, Oriented (to self, place, month, president Biden) and Other (Follows some commands. Mumbling nonsensical words. ); Negative Meningeal Signs (Neck supple)
Psychological: Confused
Lab / Diagnostic Study Results
06/26/24 05:28
06/26/24 05:28
Abs Immat Gran (auto) 0.1 10^3/uL (0-0.05) H 06/26/24 05:28
Absolute Neuts (auto) 9.2 10^3/uL (1.4-6.5) H 06/26/24 05:28
Absolute Lymphs (auto) 0.5 10^3/uL (1.2-3.4) L 06/26/24 05:28
Absolute Monos (auto) 0.3 10^3/uL (0.1-0.6) 06/26/24 05:28
Absolute Basos (auto) 0.0 10^3/uL (0-0.2) 06/26/24 05:28
Immature Gran % 1.2 % (0-0.5) H 06/26/24 05:28
Neutrophils % 91.2 % (42.2-75.2) H 06/26/24 05:28
Lymphocytes % 4.7 % (20.5-51.1) L 06/26/24 05:28
Monocytes % 2.6 % (1.7-9.3) 06/26/24 05:28
Eosinophils % 0.1 % (0-6) 06/26/24 05:28
Basophils % 0.2 % (0-2) 06/26/24 05:28
Lactic Acid 1.4 mmol/L (0.7-2.0) 06/25/24 12:19
Procalcitonin Cancelled 06/25/24 19:26
Microbiology Results
06/25/[address]: No evidence of acute intracranial abnormality.
06/25/[address]: COPD. Irregular focal parenchymal opacity in the right apex is again demonstrated with irregular margination, and a central soft tissue component measuring approximately 8.3 mm, unchanged (image 58 series 504). Posterolateral to
the density is a stable small nodule measuring approximately 5.5 mm, unchanged. Posterior and inferior along the pleural surface in the right upper lobe, there is interval development of an old boy parenchymal opacity measuring approximately 2 cm AP
by 1 cm transverse.Tiny spiculated density in the lateral right midlung zone (image 158 series 504) measuring approximately 5.3 mm, similar to prior examination.
Interval development of a linear band of heterogeneous increased attenuation in the posterior and posterior medial right lung base, consistent with atelectasis versus scarring. Slightly progressive coarsening of the subpleural interstitial markings
in the posterior right lung base. Mild subpleural interstitial coarsening in the dependent left lung base, likely atelectasis.
06/25/24 CXR: No acute cardiopulmonary process.
Assessment / Plan
# Recent COVID s/p 5d Paxlovid completed through 06/23/24.
- COVID antigen remains positive 7 days apart.
- Continue COVID isolation while in hospital.
- Oxygen status at baseline
-CXR without acute pathology
- S/p 1 dose Remdesivir in ED -> dc
- NO BENEFIT in retreating COVID
# Persistent encephalopathy
- Possibly due to recent COVID
- ?Underlying dementia
- No signs and sxs of septic meningitis
- DC ceftriaxone.
- For LP per neuro to eval for other source.
Check VDRL and WNV IgM
# Recent RUL CAP s/p 7d abx's (doxy/ceph) through 06/24/24.
-Chest CT new opacity RUL - suspect due to recent CAP. Repeat CXR resolution of previous RUL opacity.
- No need for further abx.
# Lung nodules.
# hx RUL SSC s/pp XRT
# Tobacco use disorder - discussed smoking cessation.
#Additional Past Medical History:
Severe COPD
Chronic hypoxemic respiratory failure on home 02 3L with activity
Tobacco use disorder
BPH
Anxiety
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
Care Review
Plan reviewed with: Physician (Dr. Wesley)
[2024-06-26 10:18] LABS: INR 1.17; PT 14.8 Sec (11.4-14.6)
--- NOTE | 2024-06-26 10:47 | PTCARENOTE ---
Assumed care of patient this morning. Received patient restrained with b/l wrists, however, patient able to reach his face and chest, pulling off oxygen multiple times and heart monitor leads. Pt is frequently trying to sit up and throwing legs over
the side rails. TT to MD, who added mitts to restraint order. Patient is only oriented to himself, occasionally answers questions but otherwise just rambles on with words and unable to have a conversation with patient. He has been incontinent of
bladder. At times he has voiced needing to urinate, however, will not follow commands to urinate in urinal. Assessment, care and VS as charted.
--- NOTE | 2024-06-26 13:06 | CON.PUL ---
Consultation
Consultation Request
Date/Time Consultation Requested: 06/26
Date/Time Consultation Performed: 06/26
Reason for Consultation: Hypoxia
Medical History
-
History of Present Illness:
History obtained from friend at bedside and reviewing records. Patient is confused, unable to provide history at this time. He was recently discharged 06/24/2024 after course of COVID. Upon arrival to home, his partner states that he was agitated,
violent, throwing things. For this reason he was brought back to [facility] where upon arrival, temperature 99.5, pulse 76, breathing at 19, blood pressure 137/82, 96% saturation. Per EMS, saturation was in the 80s on room air. CT chest
was obtained which ruled out PE. No acute findings except some nodular disease which is being followed as an outpatient by his pulmonary physician. We are asked to comment on his pulmonary process. According to his partner, there are no pulmonary
symptoms. There is no complaints of shortness of breath, chest pain or cough. Cannot confirm this with the patient as he is confused
.
PMH: S/p COVID June 2024, History of RUL lung cancer s/p XRT, history of chronic bronchitis, severe COPD on home oxygen, restrictive lung disease, cachexia, smoker's cough, tobacco use disorder, anxiety, history of scarlet fever, history of
pneumonia, history of chickenpox, history of measles/mumps
Past Medical History
Past Medical History: None (See above)
Past Surgical History: None (See above)
Social History
Tobacco: Smoker (Continues to smoke)
Alcohol: Occasional
Drug: None
Personal: Single
Living: With Roomate (With partner)
Employment: Retired
Family History
Family History: Reviewed & Not Pertinent
Allergies / Home Medications
Allergies
Allergy/AdvReac Type Severity Reaction Status Date / Time
Penicillins Allergy Unknown/tolerated Verified 06/21/24 15:40
ceftriaxone
Home Medications
�Medication �Instructions �Recorded �Confirmed �Last Taken �Type
buspirone 15 mg tablet 15 mg PO QID Mental Health/Anxiety 03/15/23 06/25/24 06/17/24 History
##0
fluticasone fur. 100 mcg-umeclid 1 inh inhalation R DAILY 03/15/23 06/25/24 06/17/24 History
62.5 mcg-vilant 25 mcg Lung/breathing issues
inhalat.powder (Trelegy Ellipta)
albuterol sulfate 90 mcg/actuation 2 puff inhalation R Q6HPRN PRN sob 06/25/24 06/25/24 Unknown History
aerosol inhaler
alprazolam 0.25 mg tablet 1.5 mg PO BID Mental Health/Anxiety 06/25/24 06/25/24 Unknown History
dexamethasone 1 mg tablet 6 mg PO .BIDX4D inflammation 06/25/24 06/25/24 Unknown History
gabapentin 300 mg capsule 300 mg PO 5/D neuropathic pain 06/25/24 06/25/24 Unknown History
hydroxyzine HCl 50 mg tablet 50 mg PO BID 06/25/24 06/25/24 Unknown History
antihistamine/antiemetic
levalbuterol HCl 0.63 mg/3 mL 0.63 mg inhalation R TIDPRN PRN sob 06/25/24 06/25/24 Unknown History
solution for nebulization
mirabegron 25 mg tablet,extended 25 mg PO DAILY Urinary Issue 06/25/24 06/25/24 Unknown History
release 24 hr (Myrbetriq)
tamsulosin 0.4 mg capsule (Flomax) 0.4 mg PO DAILY Urinary Issue 06/25/24 06/25/24 Unknown History
Review of Systems
-
Unable to Obtain full review of systems at this time due to: Acuity
Vitals / Labs / Diagnostic Testing
Vital Signs
Temp Pulse Resp BP Pulse Ox
98.1 F 86 19 133/104 97
06/26/24 12:00 06/26/24 12:00 06/26/24 12:00 06/26/24 12:00 06/26/24 12:00
Lab Data
06/26/24 05:28
06/26/24 05:28
Laboratory Results
06/25/24 06/26/24
18:47 10:00
PT 14.8 H
INR 1.17
pH 7.48 H
pCO2 35
pO2 67 L
HCO3 26.1
O2 Delivery Level
Diagnostic Testing:
Physical Exam
-
HEENT: Normocephalic and Anicteric
Cardiovascular: S1/S2, Regular Rhythm, Murmur (n) and Rub (n)
Respiratory: Wheeze (n), Rales (n), Rhonchi (n) and Non-Labored Respirations
GI: Soft, Non Distended and Non Tender
Neurology: Awake, Alert and Oriented (Disoriented, conversing about no specific topic, does not pertain to being in the hospital)
Skin: Other (No rash)
General: Comfortable (In restraints)
Assessment
-
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
via spirometry from 03/20/2024), history of scarlet fever, anxiety, and history of chronic bronchitis who was recently discharged 06/24 after course of COVID, thought to cause encephalopathy. Saw neurology at that time, workup negative. According to
partner, upon arrival home, patient became extremely agitated, violent throwing things. Was brought back to [facility]. In the field was noted to have saturation in the 80s improved with oxygen. We are asked to comment on his pulmonary
process
TME, delirium
Recent neurology workup 06/23/2024, negative
Hypoxic respiratory insufficiency, saturation in the 80s in the field improved with oxygen
Recent hospitalization for COVID
Discharge 06/24
Also treated with antibiotics for possible right upper lobe pneumonia
COPD/emphysema
Ongoing tobacco use#Active tobacco use
History of RUL non-small cell lung cancer (squamous of carcinoma) s/p XRT - follows with [facility]
Plan/recommendations
At this time, patient appears to be comfortable on nasal cannula.
Chest exam is clear
CT chest without acute findings, negative PE
There does not appear to be an acute pulmonary process
Primary issue is his neurological status
Moving forward
Discontinue steroids. There is no pulmonary indication for this at this time
There is no indication for antibiotics at this time
Unclear whether current confusion/delirium may be steroid-induced. Partner states that patient may have had reaction to steroids in the past but not sure
During prior hospital stay, mental status would wax and wane during the week
Neurology following
Continue with albuterol QID with spiriva; prn albuterol for breakthrough symptoms
Continue Symbicort/Spiriva
Maintain SpO2 >88-94% with supplemental O2 as needed
DVT ppx: Remains on Lovenox
Reviewed with partner at bedside. Unable to review with the patient as he rambles on
Will sign off. Please call with questions
--- NOTE | 2024-06-26 16:07 | PTOTSP ---
Dysphagia Evaluation
Patient with acute on chronic risk factors for dysphagia (i.e., encephalopathy from COVID-19, concern for possible dementia, COPD, RUL lung CA s/p XRT). He accepted limited PO (thin via straw x2, puree x2) during this evaluation and had signs
concerning for oral/pharyngeal dysphagia but no overt s/s of aspiration.
Recommend:
1. Cautious IDDSI Level 4 (Puree), IDDSI Level 0 (Thin Liquids)
2. Medications - crushed in puree if medically cleared to do so
3. Strategies: Full supervision/assistance, upright to 90 degrees, limit distractions, small single sips/bites, slow rate, ensure patient swallows before next sip/bite,
4. D/C oral diet if further decline in mentation, GREGORY, or s/s of aspiration
5. Continued dysphagia therapy at the acute care level.
[2024-06-26] MEDS: NSS (PRESERVATIVE FREE) 0.5 ML IV (16:15)
[2024-06-26] MEDS: ATIVAN 1 MG IV (16:15)
--- NOTE | 2024-06-26 16:28 | CM ---
Addendum entered by Hilda Wilson RN 06/26/24 16:45:
Additionally, patient has a daughter Faby who lives in [facility] and brother John in [place].
Original Note:
Patient with Hx recent admission for COVID infection and CAP, who returned due to persistent confusion, with Dx TME, Delirium. O2 3L. Covid + 06/18 & 06/25/24. PT & OT on hold. ST Eval; dysphagia. Per nurse; confused, restless, restraints.
Met with patient's SO Amy outside of patient's room;
the patient resides with Amy in a 2 story house with 2 NIESHA.
There is a first floor bedroom/bath patient can use if needed.
The patient has been independent in ADLs and ambulation.
DME - RW & commode ordered through [employer] on prior admission, also has home O2 concentrator- SO cannot remember DME supplier
VN - went home from last admission referred to [facility] however was not seen as he was only home about 1 day
No prior SNF.
PCP - Luiz Barrios
Pharmacy - [facility]
CM continuing to follow for d/c needs.
Plan TBD.
[2024-06-26 17:59] LABS: CSF Clarity Clear; CSF Color Colorless; CSF Tube # 1; White Cell Count/CSF 0 mm^3 (0-5)
[2024-06-26 18:00] LABS: CSF Color Colorless; CSF Tube # 4; CSF Tube # Clarity Clear; Red Cell Count/CSF 1 mm^3; White Blood Cell Count/CSF 1 mm^3 (0-5)
--- NOTE | 2024-06-26 18:00 | PTCARENOTE ---
Patient's daughter Faby called for update. I spoke with Amy who is primary contact on chart and stated that was okay and she may be added to the chart for updates but does not want her making any decisions for care. Faby updated to best of
RN ability.
[2024-06-26 18:04] LABS: Red Cell Count/CSF 17 mm^3
[2024-06-26] MEDS: LOVENOX 40 MG SC (18:17)
[2024-06-26] MEDS: SYMBICORT 80/4.5 MCG INHALER 2 PUFF INH (20:45)
--- NOTE | 2024-06-26 20:59 | PTCARENOTE ---
Received from previous RN. Pt alert to self, confused, disoriented to time and situation. Continues to ramble on, cannot follow oriented conversation. Pt in B/L soft wrist restraints, as well B/L mitts. Pt is restless, moving around in bed, trying
to sit up. Reality orientation attempted, calm voice used. Pt inc of urine, wearing brief. Pt NSR on monitor. sat 96% on 2L. Offered sips of water. Hourly rounds maintained. RN sitting close to Pt room.
[2024-06-27] VITALS (19 sets, daily range): BP systolic 100–149; BP diastolic 59–91; O2SAT 95; BMI 16.8
--- NOTE | 2024-06-27 07:47 | W.PN.NEURO.1 ---
Today's Communication / Plan
-
Follow MRI of brain to ensure intracranial ischemic lesions have not taken place
Check blood work for additional metabolic abnormalities
Provide thiamine IV
Neuro Assessment/Plan
Assessment
Abrupt change in mental status
With patient recently experiencing significant and severe COVID-19 infection and bacterial superinfection
Most likely diagnosis is toxic metabolic encephalopathy based on the patient's continued delirium and absence of additional clear etiology. Differential diagnosis however would include stroke due to hypercoagulable state caused by COVID-19 infection
Lumbar puncture performed failed to demonstrate encephalitis
Plan
Follow MRI of brain to ensure intracranial ischemic lesions have not taken place
Check blood work for additional metabolic abnormalities
Provide thiamine IV
Will continue to follow pending results
Subjective/Objective
Subjective Data
Date of Service: June 27, 2024
Objective Data
Vital Signs
Temp Pulse Resp BP Pulse Ox
36.0 C L 83 17 100/74 95
06/27/24 04:09 06/27/24 05:00 06/27/24 05:00 06/27/24 05:00 06/27/24 05:00
Lab Results
06/26/24 05:28
06/26/24 05:28
PT 14.8 Sec (11.4-14.6) H 06/26/24 10:00
INR 1.17 06/26/24 10:00
Sodium 135 mmol/L (135-145) 06/26/24 05:28
Potassium 3.8 mmol/L (3.5-5.1) 06/26/24 05:28
BUN 32 mg/dl (9-20) H 06/26/24 05:28
Glucose 95 mg/dl (70-99) 06/26/24 05:28
Calcium 8.2 mg/dl (8.4-10.2) L 06/26/24 05:28
Patient Allergies
Penicillins Allergy (Verified 06/21/24 15:40)
Unknown/tolerated ceftriaxone
Data Reviewed
-
Labs: Ordered and Report Reviewed
Reviewed with: Nurse Practioner
Past History
Past History
ED Past Medical History: Cancer, COPD (Home O2), Psychiatric (anxiety) and Other (Measles, mumps, chickenpox, scarlet fever, pneumonia, COVID-03 July 2024)
ED Past Surgical History: Other (Lung biopsy followed by pneumothorax 2018, cataract extraction)
Social History
Tobacco: Smoker
Drug: None
Personal: Other ( )
Family History
Family History: Other (Reviewed and noncontributory)
Medications
-
Medications:
Generic Name Dose Route Start Last Admin
Trade Name Freq PRN Reason Stop Dose Admin
Acetaminophen 650 mg 06/25/24 20:46
Acetaminophen 325 Mg Tablet PO 07/23/24 20:45
Q4HPRN PRN
mild pain/OROZCO/temp> 100.4F
Bisacodyl 10 mg 06/25/24 20:46
Bisacodyl 10 Mg Rectal Suppository RECTAL 07/23/24 20:45
[id number] PRN
constipation
Budesonide/Formoterol Fumarate 2 puff 06/26/24 08:00 06/26/24 20:45
Symbicort Inhaler 80/4.5 INH 07/24/24 07:59 2 puff
R BID CRISTELA Administration
Enoxaparin Sodium 40 mg 06/26/24 18:00 06/26/24 18:17
Enoxaparin Sodium 40 Mg/0.4 Ml Syringe SC 07/24/24 17:59 40 mg
QPM CRISTELA Administration
Polyethylene Glycol 17 grams 06/25/24 20:46
Polyethylene Glycol Powder 17 Grams Packet PO 07/23/24 20:45
DAILYPRN PRN
constipation
Senna/Docusate Sodium 1 tablet 06/25/24 20:46
Docusate W/Senna (Christelle-Colace) Tablet PO 07/23/24 20:45
BIDPRN PRN
constipation
Sodium Chloride 0 flush 06/25/24 20:00
Sodium Chloride 0.9% (Flush) Syringe IV 07/23/24 19:59
PER PROTOCOL CRISTELA
Tiotropium [place] 2 puff 06/26/24 08:00 06/26/24 08:16
Tiotropium (Spiriva Respimat) 2.5 Mcg Inhaler INH 07/24/24 07:59 Not Given
R DAILY CRISTELA
[2024-06-27] MEDS: SPIRIVA RESPIMAT 2.5 MCG INH (08:06)
[2024-06-27] MEDS: SYMBICORT 80/4.5 MCG INHALER INH (08:06)
[2024-06-27] MEDS: THIAMINE INJECTION 100 MG IV (08:30)
--- NOTE | 2024-06-27 09:32 | W.PN.ID1 ---
Date of Service
Date of Service: June 27, 2024
Today's Communication
ID will sign off.
Assessment / Plan
# Recent COVID s/p 5d Paxlovid completed through 06/23/24.
- COVID antigen remains positive 7 days apart.
- Continue COVID isolation through 07/05/24
- Oxygen status at baseline
-CXR without acute pathology
- S/p 1 dose Remdesivir in ED -> dc'd
- NO BENEFIT in retreating COVID
# Persistent encephalopathy
- Neuro following
- No signs and sxs of septic meningitis
- LP CSF 1 wbc indicates no meningitis. Meningoencephalitis panel negative.
- No need for abx.
# Recent RUL CAP s/p 7d abx's (doxy/ceph) through 06/24/24.
-Chest CT new opacity RUL - suspect due to recent CAP. Repeat CXR resolution of previous RUL opacity.
- No need for further abx.
# Lung nodules.
# hx RUL SSC s/pp XRT
# Tobacco use disorder - discussed smoking cessation.
ID will sign off.
#Additional Past Medical History:
Severe COPD
Chronic hypoxemic respiratory failure on home 02 3L with activity
Tobacco use disorder
BPH
Anxiety
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
Chief Complaint
-: Other (Mental status change)
Subjective / Review of Systems
Per nurse, pt was agitated.
Vital Signs / Physical Exam
Vital Signs
Vital Signs
Temp Pulse Resp BP Pulse Ox
96.8 F L 83 17 100/74 95
06/27/24 04:09 06/27/24 05:00 06/27/24 05:00 06/27/24 05:00 06/27/24 05:00
Physical Exam
Constitutional: Acutely Ill and Cachetic
Cardiovascular: Regular Rate and S1/S2
Gastrointestinal: Soft, Non Tender and Non Distended
Genito-Urinary: Palm and Clear Urine
Extremities: Negative Edema
Neurological: Awake and Alert
Psychological: Confused
Objective Data
Lab Data
PT 14.8 Sec (11.4-14.6) H 06/26/24 10:00
INR 1.17 06/26/24 10:00
Estimated Creat Clear 80 ml/min 06/26/24 05:28
Lactic Acid 1.4 mmol/L (0.7-2.0) 06/25/24 12:19
Total Bilirubin 0.7 mg/dl (0.2-1.3) 06/26/24 05:28
AST 48 U/L (17-59) 06/26/24 05:28
ALT 55 U/L (0-50) H 06/26/24 05:28
Alkaline Phosphatase 57 U/L (38-126) 06/26/24 05:28
Most recent labs reviewed.
Micro Results:
06/25/24 16:15 Meningitis/Encephalitis Panel (PCR) - Final
Csf
06/25/24 16:15 CSF Culture - Pending
Csf Gram Stain - Preliminary
06/25/[address]: No evidence of acute intracranial abnormality.
06/25/[address]: COPD. Irregular focal parenchymal opacity in the right apex is again demonstrated with irregular margination, and a central soft tissue component measuring approximately 8.3 mm, unchanged (image 58 series 504). Posterolateral to
the density is a stable small nodule measuring approximately 5.5 mm, unchanged. Posterior and inferior along the pleural surface in the right upper lobe, there is interval development of an old boy parenchymal opacity measuring approximately 2 cm AP
by 1 cm transverse.Tiny spiculated density in the lateral right midlung zone (image 158 series 504) measuring approximately 5.3 mm, similar to prior examination.
Interval development of a linear band of heterogeneous increased attenuation in the posterior and posterior medial right lung base, consistent with atelectasis versus scarring. Slightly progressive coarsening of the subpleural interstitial markings
in the posterior right lung base. Mild subpleural interstitial coarsening in the dependent left lung base, likely atelectasis.
06/25/24 CXR: No acute cardiopulmonary process.
--- NOTE | 2024-06-27 09:48 | W.PN.HOSP.TC ---
Today's Communication/Plan
-
MRI Brain
No need for antibiotics or steroids
Appreciate neurology, ID, pulm and psychiatry
Assessment / Plan
Assessment / Plan
Physical Exam
General: Not in acute distress
Respiratory: Clear to Auscultation Bilaterally
Cardiac: S1/S2 and Regular Rhythm
GI: Soft and Non Tender. Positive bowel sounds.
Neuro: Awake, Alert.
Psych: Confused; No Judgment/Insight

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
confusion.
There was thought that he may have undiagnosed dementia and his mental status would improve once he returns home; however, he remained lethargic and MS worsened at home. He is now unable to follow direction and mumbles words.
He was found to be hypoxia with pulse ox 80s by EMS (likely too confused to keep his nasal cannula on).
CT chest from ED:
No evidence of pulmonary embolism.
COPD. Atelectasis versus scarring in the posterior lung bases, right greater than left. Irregular parenchymal opacity in the right upper lobe and adjacent small nodule remains stable. 5.3 mm spiculated density in the lateral right midlung zone
remains stable.
Interval development of pleural-based 2 x 1 cm ovoid opacity in the posterior right upper lobe. Recommend follow-up in 3 months after conservative therapy.
Assessment/Plan
# Acute metabolic encephalopathy likely due to hypoxia vs COVID encephalopathy
# Persistent agitation/restlessness
# Acute on chronic hypoxic respiratory failure
# Recent bacterial pneumonia and COVID-19 (unvaccinated)
His recent CT head was negative for intracranial abnormality
Repeat CT Head unremarkable, IV Ativan for agitation
Neuro consulted, appreciate evaluation
LP with no meningitis and meningoencephalitis panel is negative --> no need for antibiotics
MRI brain when able
Thiamine
Keep O2 support at 3L NC (baseline requirement), restraint with hand mitts if needed
Continue bronchodilators and inhaled corticosteroids
Of note, pt recently completed Paxlovid (last dose 06/23)
Stop IV Decadron/steroids as per pulmonary recommendations (steroids could also be contributing to the mental status change)
He was recently discharged with Ceftin and doxycycline; no need for further antibiotics as per ID.
PT OT eval
Appreciate pulmonary and ID
Holding Buspar, Psychiatry consulted for patient's persistent agitation/restlessness needing restraints, appreciate evaluation and recommendations
# History of of RUL SCC diagnosis 03/17/[address]23
[address] chest this admission noted interval development of right upper lobe opacity, recommend outpatient follow-up in 3 months
Close follow-up with pulmonary outpatient
# Recent diagnosis of Brugada syndrome
He can follow-up with cardiology outpatient
# COPD
Cont Bronchodilators with inhalers
# Anxiety
At this point, I would highly recommend to hold further buspirone, continue low-dose Xanax as needed
# BPH
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
# Smoker
Nicotine patch
DVT prophylaxis: Lovenox 40 mg SQ daily
CODE STATUS: Full code
Anticipated Discharge: > 48 hours
Subjective/Interval History
-
Date of Service: June 27, 2024
Patient was seen and examined. He continues to remain agitated and restless.
Objective Data
-
Labs:
Laboratory Results
06/27/24
08:59
WBC Pending
Hgb Pending
Hct Pending
Plt Count Pending
Sodium Pending
Potassium Pending
Chloride Pending
Carbon Dioxide Pending
BUN Pending
Creatinine Pending
Glucose Pending
Calcium Pending
Total Bilirubin Pending
AST Pending
ALT Pending
Alkaline Phosphatase Pending
Vital Signs:
Vital Signs
Temp Pulse Resp BP Pulse Ox
97.6 F 83 17 100/74 95
06/27/24 07:33 06/27/24 05:00 06/27/24 05:00 06/27/24 05:00 06/27/24 05:00
I&O
06/26/24 06/27/24 06/28/24
06:59 06:59 06:59
Intake Total 240 / 240
Balance 240 / 240
[2024-06-27 09:56] LABS: % Basophils 0.1 % (0-2); % Immature Granulocytes 1.1 % (0-0.5); % Monocytes 12.2 % (1.7-9.3); % Neutrophils 79.6 % (42.2-75.2); Absolute Immature Granulocytes 0.1 10^3/uL (0-0.05); Absolute Lymphocytes 0.9 10^3/uL (1.2-3.4); Absolute Monocytes 1.5 10^3/uL (0.1-0.6); Hemoglobin 14.1 g/dL (13.0-18.0); Mean Corp Hgb Conc. 36.2 g/dL (33.0-37.0); Mean Corpuscular Hgb 29.8 pg (27.0-31.0); Mean Corpuscular Volume 82.5 fL (80.0-94.0); Mean Platelet Volume 9.8 fL (7.4-10.4); Nucleated Red Blood Cells % 0 % (-); Platelet Count 311 10^3/uL (130-400); Red Blood Cell Count 4.73 10^6/uL (4.70-6.10); Red Cell Dist. Width 13.2 % (11.5-14.5); White Blood Cell Count 12.6 10^3/uL (4.8-10.8)
[2024-06-27 09:59] LABS: ALT (SGPT) 58 U/L (0-50); AST (SGOT) 52 U/L (17-59); Albumin 3.8 g/dl (3.5-5.0); Alkaline Phosphatase 69 U/L (38-126); Blood Urea Nitrogen 49 mg/dl (9-20); Calcium 8.9 mg/dl (8.4-10.2); Carbon Dioxide 23 mmol/L (22-30); Chloride 102 mmol/L (98-107); Estimated Creatinine Clearance 80 ml/min; Glucose 113 mg/dl (70-99); Magnesium 2.3 mg/dl (1.6-2.3); Potassium 3.5 mmol/L (3.5-5.1); Sodium 137 mmol/L (135-145); Total Bilirubin 1.2 mg/dl (0.2-1.3); Total Protein 6.2 g/dl (6.3-8.2); eGFR > 60.00
[2024-06-27 12:41] LABS: Erythrocyte Sed Rate 5 mm/hour (0-20)
--- NOTE | 2024-06-27 13:53 | CS.PSYCHR ---
Consult Summary - Psychiatry
-
Pt is 73 yo male who was discharged for Covid infection and CAP on 06/24/24. Pt's mental status was expected to improve once home, but pt returned to ED due to persistent confusion, lethargy, found to be hypoxic with pulse Ox in the 80's. Pt noted
now unable to follow direction, mumbling responses. Pt seen, resting in bed in no acute distress, calm, in soft wrist restraints and mitts. Pt awake, making eye contact, but unable to answer orientation questions, repeated only '2 jacks...' Pt
was continued on home med Xanax and received some doses of Ativan during previous admission.
PMH: COPD, active smoker, BPH, Rt upper lobe non-small cell lung Ca S/P X-ray Tx, recent admission for Covid-19 and pneumonia 06/18 to 06/24/24, had acute TME. Hx of Brugada pattern on EKG
Psych Hx: unspecified anxiety- Rx Buspar and Xanax 1.5 mg BID by PCP; pt unable to give any information
MSE: alert, awake, calm, making eye contact. No agitation this morning. Pt disoriented, unable to answer any questions or give any history.
Imp: Agree with Neurology assessment of TME, due to medical conditions
Pt on Rx Xanax at home, continued during previous stay, is at some risk for benzo withdrawal
Rec: Would continue on prn Ativan and monitor for signs of benzo withdrawal
Agree with holding off Buspar for now.
Will follow and monitor agitation, consider antipsychotic med with caution
[2024-06-27] MEDS: ATIVAN 0.5 MG IV ×2 (15:01→22:11)
[2024-06-27] MEDS: NSS (PRESERVATIVE FREE) 0.25 ML IV (15:01)
--- NOTE | 2024-06-27 16:18 | PN.CDI ---
CDI
- -
CDI:
Physician Documentation Request
Admit Date: 06/25/24 19:35
Dear Doctor Margot,
Please review the following and provide your response in the progress notes.
Clinical Indicators:
Pt admitted with recent COVID-19 /Acute on Chronic Hypoxic Respiratory Failure/ Metabolic Encephalopathy
Documented per [facility] nursing notes on admit 06/25, Present on admission Coccyx pressure injury stage 2
Physician documentation of the type and location of wounds is required for compliant documentation. Based on the above clinical findings and your assessment, please provide the following in your progress note:
1. Location of the ulcer/wound, including laterality.
2. Type (etiology) of ulcer/wound:
- Pressure (decubitus) ulcer
- Non-pressure ulcer
- Other
Use of terms such as suspected, likely, concern for, or probable (associated with a specific diagnosis that is being evaluated, monitored, or treated as if it exists) are acceptable and can be coded in the inpatient setting, when documented at the
time of discharge.
Thank you,
Suri Miller RN
CDI Specialist
Ignacio Text
Please use your independent medical judgment in providing your response.
*Source: National Pressure Ulcer Advisory Panel (NPUAP)
[2024-06-27 16:25] LABS: TSH Reflex To Free T4 0.93 uIU/ml (0.47-4.68)
[2024-06-27 17:00] LABS: Folate > 20.0 ng/ml (2.76-20); Vitamin B12 > 1000 pg/ml (239-931)
[2024-06-27] MEDS: LOVENOX 40 MG SC (17:36)
--- NOTE | 2024-06-27 18:23 | PTCARENOTE ---
Rec'd pt this AM. pt had removed one restraint, was on all fours, nearly out of bed, biting other restraint. RN able to get pt to lay back down. Pt now in 4 pt restraints as a result. Pt remains very confused, agitated, hallucinating at times
throughout the shift. PRN ativan given as ordered with some brief improvement to agitation. Significant other at bedside. Anxious about pt's condition and how she will ever be able to take him home. support provided.
[2024-06-27] MEDS: SYMBICORT 80/4.5 MCG INHALER 2 PUFF INH (20:27)
--- NOTE | 2024-06-27 22:30 | PTCARENOTE ---
Received pt from day shift, AAOx1 (to self). Pt in 4 pt soft limb restraints w/ mitts and 4 side rails. Pt restless in bed and repeating himself after a question. Pt cleaned and changed. PRN IV Ativan given for agitation (see MAR). Pt lying in bed
with call devi in reach.
[2024-06-28] VITALS: BP 123/91
[2024-06-28 04:00] VITALS: BP 144/95
[2024-06-28] MEDS: ATIVAN 0.5 MG IV ×2 (04:40→23:39)
[2024-06-28 04:43] VITALS: BMI 16.7
[2024-06-28 08:00] VITALS: BP 124/109
[2024-06-28] MEDS: SPIRIVA RESPIMAT 2.5 MCG 2 PUFF INH (08:01)
[2024-06-28] MEDS: SYMBICORT 80/4.5 MCG INHALER 2 PUFF INH ×2 (08:02→20:09)
--- NOTE | 2024-06-28 08:46 | PTCARENOTE ---
Pt remains in 4 pt soft restrains as ordered . Calm at this time
[2024-06-28] MEDS: THIAMINE INJECTION 100 MG IV (10:07)
--- NOTE | 2024-06-28 10:25 | W.PN.HOSP.TC ---
Addendum entered and electronically signed by Alfredo Frost MD 06/28/24 10:32:
Present on admission Coccyx pressure injury stage 2
Original Note:
Today's Communication/Plan
-
Await MRI Brain
Appreciate neurology and psychiatry
Transfer to telemetry
Assessment / Plan
Assessment / Plan
Physical Exam
General: Not in acute distress
Respiratory: Clear to Auscultation Bilaterally
Cardiac: S1/S2 and Regular Rhythm
GI: Soft and Non Tender. Positive bowel sounds.
Neuro: Awake, Alert.
Psych: Confused; No Judgment/Insight

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
confusion.
There was thought that he may have undiagnosed dementia and his mental status would improve once he returns home; however, he remained lethargic and MS worsened at home. He is now unable to follow direction and mumbles words.
He was found to be hypoxia with pulse ox 80s by EMS (likely too confused to keep his nasal cannula on).
CT chest from ED:
No evidence of pulmonary embolism.
COPD. Atelectasis versus scarring in the posterior lung bases, right greater than left. Irregular parenchymal opacity in the right upper lobe and adjacent small nodule remains stable. 5.3 mm spiculated density in the lateral right midlung zone
remains stable.
Interval development of pleural-based 2 x 1 cm ovoid opacity in the posterior right upper lobe. Recommend follow-up in 3 months after conservative therapy.
Assessment/Plan
# Acute metabolic encephalopathy likely due to hypoxia vs COVID encephalopathy
# Persistent agitation/restlessness
# Acute on chronic hypoxic respiratory failure
# Recent bacterial pneumonia and COVID-19 (unvaccinated)
His recent CT head was negative for intracranial abnormality
Repeat CT Head unremarkable, IV Ativan for agitation
Neuro consulted, appreciate evaluation
LP with no meningitis and meningoencephalitis panel is negative --> no need for antibiotics
MRI brain when able
Continue IV Thiamine
Keep O2 support at 3L NC (baseline requirement), restraint with hand mitts if needed
Continue bronchodilators and inhaled corticosteroids
Of note, pt recently completed Paxlovid (last dose 06/23)
Stop IV Decadron/steroids as per pulmonary recommendations (steroids could also be contributing to the mental status change)
He was recently discharged with Ceftin and doxycycline; no need for further antibiotics as per ID.
PT OT eval
Appreciate pulmonary and ID
Holding Buspar, Psychiatry consulted for patient's persistent agitation/restlessness needing restraints, appreciate evaluation and recommendations: continue 0.5 mg IV prn Ativan
SEE CDRI
# History of of RUL SCC diagnosis 03/17/[address]23
[address] chest this admission noted interval development of right upper lobe opacity, recommend outpatient follow-up in 3 months
Close follow-up with pulmonary outpatient
# Recent diagnosis of Brugada syndrome
He can follow-up with cardiology outpatient
# COPD
Cont Bronchodilators with inhalers
# Anxiety
At this point, I would highly recommend to hold further buspirone, continue low-dose Xanax as needed
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
# Smoker
Nicotine patch
DVT prophylaxis: Lovenox 40 mg SQ daily
CODE STATUS: Full code
Anticipated Discharge: 24 - 48 hours
Subjective/Interval History
-
Date of Service: June 28, 2024
Patient was seen and examined. He is still restless at times.
Objective Data
-
Vital Signs:
Vital Signs
Temp Pulse Resp BP Pulse Ox
96.7 F L 79 20 144/95 96
06/28/24 07:15 06/28/24 08:07 06/28/24 08:07 06/28/24 04:00 06/28/24 10:12
I&O
06/27/24 06/28/24 06/29/24
06:59 06:59 06:59
Intake Total 240 / 240 530 / 530
Output Total 1510 / 1510 175 / 175
Balance 240 / 240 -980 / -980 -175 / -175
[2024-06-28 12:00] VITALS: BP 141/76
--- NOTE | 2024-06-28 13:07 | W.PN.UPDATE ---
Update Note
Progress Note Update
patient seen chart reviewed. discussed w nursing. significant other at bedside. the patient remains very confused. he spoke non stop about something....but i could understand nothing of what he was saying or rather i understood the words but they
had no meaning for me. said he may have been talking about things which happened some time ago. efforts to ask him to clarify what he was saying were to no avail. he just kept talking in a long stream. i could neither leave nor get him to
answer any basic ? eg where are you? noted neuro recommending mri to r/o vascular insult. i doubt this is primary psych. likely tme secondary to recent covid and baccterial infection. would continue as currently. while patient is confused at
this moment he is calm. nursing reports he does respond w calming to ativan.
--- NOTE | 2024-06-28 15:11 | PN.CDI ---
CDI
- -
CDI:
Physician Documentation Request
Admit Date: 06/25/24 19:35
Dear Doctor Margot,
Please review the following and provide your response in the progress notes.
Clinical Indicators:
Pt admitted with recent COVID-19 /Acute on Chronic Hypoxic Respiratory Failure/ Metabolic Encephalopathy
Documented in the record BMI 16.8, Cachexia
Nutrition note 06/27, ' BMI assessment underweight ... Current BW: (06/25) 120 lbs 5.9 oz BMI 16.8 (underweight)Patient meets ASPEN/AND criteria of Severe Protein Calorie Malnutrition ... Assessment Subcutaneous loss over orbital with dark circles
somewhat hollow severity Severe ,rib cage Severe, assessment muscle loss over clavicle ,Temporal Severe ....'
Nutrition note 06/28 ,' Current BW: (06/28) 106 lbs 7.732 oz BMI 16.7 (underweight); (06/26) 111 lbs 12 oz BMI 17.5 (underweight)...'
Based on the above information and your assessment, which of the following most accurately represents the patient's nutritional status?
Severe Protein calorie Malnutrition
Other ( please specify)
[place] Criteria (ACP Hospitalist 2017)
2 or more criteria must be present for either
non severe or severe malnutrition
Note that the criteria differs related to the
presence of an acute or chronic illness
Acute Illness Chronic Illness
Energy Intake Non Severe: <75% for >7 days Non Severe: <75% for >1 month
Severe: <50% for >5 days Severe: <75% for >1 month
Weight Loss Non Severe: 1-2% over 1 week Non Severe: 5% over 1 month
5% over 1 month 7.5% over 3 months
7.5% over 3 months 10% over 6 months
1 year N/A 20% over 1 year
Severe: >2% over 1 week Severe: >5% over 1 month
>5% over 1 month >7.5% over 3 months
>7.5% over 3 months >10% over 6 months
1 year N/A >20% over 1 year
Body Fat Non Severe: Mild Decrease Non Severe: Mild Loss
Severe: Moderate Decrease Severe: Severe Loss
Muscle Mass Non Severe: Mild Decrease Non Severe: Mild Loss
Severe: Moderate Decrease Severe: Severe Loss
Fluid Accumulation Non Severe: Mild Accumulation Non Severe: Mild Accumulation
Severe: Moderate to severe Severe: Moderate to severe
accumulation accumulation
Reduced Department Of Mathematics Chair Strength Non Severe: N/A Non Severe: N/A
Severe: Measurably reduced Severe: Measurably reduced
Use of terms such as suspected, likely, concern for, or probable (associated with a specific diagnosis that is being evaluated, monitored, or treated as if it exists) are acceptable and can be coded in the inpatient setting, when documented at the
time of discharge.
Thank you,
Suri Miller RN
CDI Specialist
Addis Text
Please use your independent medical judgment in providing your response.
[2024-06-28 16:00] VITALS: BP 137/92
[2024-06-28] MEDS: LOVENOX 40 MG SC (16:53)
--- NOTE | 2024-06-28 17:39 | CM ---
Patient with Hx recent admission for COVID infection and CAP, who returned due to persistent confusion, with Dx TME, Delirium. O2 2L. Covid + 06/18 & 06/25/24. PT & OT recommend skilled rehab. ST Eval; dysphagia. Per nurse; confused, restless,
restraints.
Phone call to ANA PAULA Reyes; left message requesting callback for d/c planning.
[2024-06-28 20:00] VITALS: BP 141/89
[2024-06-29] VITALS (14 sets, daily range): BP systolic 96–146; BP diastolic 74–94; PULSE 86–124; O2SAT 96; BMI 16.2
--- NOTE | 2024-06-29 00:21 | PTCARENOTE ---
Received pt from day shift. AAOx1 (to self), Lying in bed with bilateral soft wrist and leg restraints, mitts, and four side rails. Changed, cleaned and given PRN Ativan for agitation (see MAR). Call devi in reach.
[2024-06-29] MEDS: SPIRIVA RESPIMAT 2.5 MCG 2 PUFF INH (07:50)
[2024-06-29] MEDS: SYMBICORT 80/4.5 MCG INHALER 2 PUFF INH (07:50)
[2024-06-29] MEDS: THIAMINE INJECTION 100 MG IV (08:32)
--- NOTE | 2024-06-29 10:04 | W.PN.HOSP.TC ---
Today's Communication/Plan
-
Await Brain MRI -- if MRI cannot be done due to agitation, patient should get Ativan 0.5 mg IV Ativan 30-45 minutes before MRI is done
Now off restraints, appreciate psych evaluation to see whether we can start this patient on a scheduled medication to prevent agitation going forward
Transfer to tele
Discharge Planning
Assessment / Plan
Assessment / Plan
Physical Exam
General: Not in acute distress
Respiratory: Clear to Auscultation Bilaterally
Cardiac: S1/S2 and Regular Rhythm
GI: Soft and Non Tender. Positive bowel sounds.
Neuro: Awake, Alert.
Psych: Confused; No Judgment/Insight

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
confusion.
There was thought that he may have undiagnosed dementia and his mental status would improve once he returns home; however, he remained lethargic and MS worsened at home. He is now unable to follow direction and mumbles words.
He was found to be hypoxia with pulse ox 80s by EMS (likely too confused to keep his nasal cannula on).
CT chest from ED:
No evidence of pulmonary embolism.
COPD. Atelectasis versus scarring in the posterior lung bases, right greater than left. Irregular parenchymal opacity in the right upper lobe and adjacent small nodule remains stable. 5.3 mm spiculated density in the lateral right midlung zone
remains stable.
Interval development of pleural-based 2 x 1 cm ovoid opacity in the posterior right upper lobe. Recommend follow-up in 3 months after conservative therapy.
Assessment/Plan
# Acute metabolic encephalopathy likely due to hypoxia vs COVID encephalopathy
# Persistent agitation/restlessness
# Acute on chronic hypoxic respiratory failure
# Recent bacterial pneumonia and COVID-19 (unvaccinated)
His recent CT head was negative for intracranial abnormality
Repeat CT Head unremarkable, IV Ativan for agitation
Neuro consulted, appreciate evaluation
LP with no meningitis and meningoencephalitis panel is negative --> no need for antibiotics
MRI brain still pending
Continue IV Thiamine
Keep O2 support at 3L NC (baseline requirement), restraint with hand mitts if needed
Continue bronchodilators and inhaled corticosteroids
Of note, pt recently completed Paxlovid (last dose 06/23)
Stop IV Decadron/steroids as per pulmonary recommendations (steroids could also be contributing to the mental status change)
He was recently discharged with Ceftin and doxycycline; no need for further antibiotics as per ID.
PT OT eval
Appreciate pulmonary and ID
Holding Buspar, Psychiatry consulted for patient's persistent agitation/restlessness needing restraints, appreciate evaluation and recommendations: continue 0.5 mg IV prn Ativan
Now off restraints and confused, but calm today
# History of of RUL SCC diagnosis 03/17/[address]23
CT chest this admission noted interval development of right upper lobe opacity, recommend outpatient follow-up in 3 months
Close follow-up with pulmonary outpatient
# Recent diagnosis of Brugada syndrome
He can follow-up with cardiology outpatient
# COPD
Cont Bronchodilators with inhalers
# Anxiety
At this point, I would highly recommend to hold further buspirone, continue low-dose Xanax as needed
# BPH
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
# Smoker
Nicotine patch
#Severe Protein calorie Malnutrition
DVT prophylaxis: Lovenox 40 mg SQ daily
CODE STATUS: Full code
Anticipated Discharge: 24 - 48 hours
Subjective/Interval History
-
Date of Service: June 29, 2024
Patient was seen and examined. Overnight, he received some Ativan for agitation.
Objective Data
-
Vital Signs:
Vital Signs
Temp Pulse Resp BP Pulse Ox
98.1 F 72 15 133/94 94
06/29/24 08:00 06/29/24 08:00 06/29/24 08:00 06/29/24 08:00 06/29/24 08:00
I&O
06/28/24 06/29/24 06/30/24
06:59 06:59 06:59
Intake Total 530 / 530 240 / 240
Output Total 1510 / 1510 175 / 175
Balance -980 / -980 65 / 65
--- NOTE | 2024-06-29 11:24 | W.PN.UPDATE ---
Update Note
Progress Note Update
patient seen chart reviewed. spoke with nursing and with dr gómez the latter via text. the patient remains much the same. he spoke in a long stream of consciousness looking me in the eye about things i could not understand. the theme however
seemed to me to be doom and gloom which i reflected to me in a moment where i could interject. he did seem to understand what i was saying then launched into another discussion which initially may have been relevant but which quickly veered off
into the incoherent. it is almost as though he has an expressive aphasia. nursing also told me that he seemed to understand when she suggested he not try to get up and walk around as she did not want to restrain him. he has been getting two ativan
prns daily. he cannot go to [facility] on prn ativan needs theresa order .have ordered po ativan o.5 mg bid left prn in place. he will have mri today to r.o brain lesions as cause of current mental state
[2024-06-29] MEDS: ATIVAN 0.5 MG IV ×2 (12:01→16:54)
[2024-06-29] MEDS: NSS (PRESERVATIVE FREE) 0.25 ML IV ×2 (12:03→16:54)
--- NOTE | 2024-06-29 12:44 | CM ---
Patient with Hx recent admission for COVID infection and CAP, who returned due to persistent confusion, with Dx TME, Delirium. O2 2L. Seen by Nelida - Adam BID ordered. Plan MRI today. Per nurse; patient remains confused with brief periods of
being oriented, out of restraints, no Medsitter.
Spoke with Rolf, [facility]; they do not have an available male bed until at least Tuesday 07/03. This patient would be first on their list for a male bed. Their sister facilities: [facility] is full, [facility] & [facility] are not
contracted with the patient's insurance.
Spoke with ANA PAULA Reyes; she is a Resource Paraprofessional at [employer] [facility]. Provided update re; [facility] and their other SNFs as above. She prefers [facility] however is agreeable to referrals to [facility] as a backup plan.
SNF referrals added.
Plan follow up with [facility] 07/03 for bed availability vs check alternate SNF referrals.
--- NOTE | 2024-06-29 15:17 | PTCARENOTE ---
Addendum entered by Anna Marie Mao RN 06/29/24 15:58:
Placed consult for dietary. MRI ready will send. IV Ativan given at 1200 for increased activity and restlessness.
Original Note:
Received in [facility] this am- d/w Infection prevention- removed precautions. He is AA- he can state [facility], his name and the year. Wording is repetitive and confusing- tries to make a point but unable- He is calm.
Restraints removed and Bed alarm is on. PT ambulated to the bathroom. Bed alarm set off x2 today- redirectable. Will ambulate when able. Poor appetite- only took a few bites breakfast - offered suppliment drink refused that as well.
--- NOTE | 2024-06-29 17:35 | PTCARENOTE ---
Pt going to MRI then 423. Very anxious, ambulated to bathroom then onto stretcher. Updated MRI. Still anxious at MRI- pt due for PRN Ativan- administered in dept.
[2024-06-29] MEDS: LOVENOX SC (18:20)
[2024-06-29] MEDS: SYMBICORT 80/4.5 MCG INHALER INH (19:54)
[2024-06-30 02:29] LABS: CSF VDRL (T. pallidum) Non Reactive (Non Reactive)
[2024-06-30 03:38] VITALS: BP 123/86
--- NOTE | 2024-06-30 05:45 | PTCARENOTE ---
Received pt from day shift RN very drowsy and lethargic, pt had recently gotten dose of Ativan. Skipped 2000 Ativan dose due to lethargy. Pt arousable to verbal and tactile stimuli. Pt swatting nurse away when trying to assess, and punching staff
when trying to change pt but then goes right back to sleep.
0600-- This morning patient woke up alert and apologetic for behavior. Pt oriented to person, place and time. Pt remains slightly forgetful but with mostly meaningful conversation this morning. Pt did remove IV, IV team to replace today.
[2024-06-30 07:00] VITALS: BP 119/81
[2024-06-30] MEDS: SYMBICORT 80/4.5 MCG INHALER 2 PUFF INH ×2 (07:38→21:27)
[2024-06-30] MEDS: SPIRIVA RESPIMAT 2.5 MCG 2 PUFF INH (07:38)
[2024-06-30 08:28] LABS: Lyme Disease DNA by PCR Not Detected; Lyme Source CSF
[2024-06-30 11:00] VITALS: BP 104/69
--- NOTE | 2024-06-30 12:01 | W.PN.UPDATE ---
Update Note
Progress Note Update
patient seen chart reviewed. discussed w nursing. mri shows no new lesions that would account for current confused mental status. the patient continues much the same. today he went off on a tangent about his buddhism school experience. while some
of what he says does make sense there is no real conversation...he does not then hear what you have to say and respond to it...rather he gets focused on a few words or thoughts and repeats them over and over. his partner was present at bedside and
is very supportive of him. he does seem to respond to her. nursing reported to me that patient had a moment after i saw him that he became very angry...she had been helping change the bed. i did cut the ativan to o.25 mg bid as prior to the
outburst he seemed to be quite calm. there was some report sedation yesterday w iv ativan for mri. dc'ed iv ativan.
--- NOTE | 2024-06-30 12:33 | CM ---
Patient seen at bedside with significant other.
Patient confused.
Discussed no bed availability with [facility] until Tuesday 07/03.
[facility] has no bed available.
Will follow up with [facility] on 07/03 as well as [facility].
PLAN: Discharge when stable to SNF.
--- NOTE | 2024-06-30 15:02 | W.PN.HOSP.TC ---
Today's Communication/Plan
-
SNF Bed/Placement pending
MRI results noted
Neurology to follow-up
Assessment / Plan
Assessment / Plan
Physical Exam
General: Not in acute distress
Respiratory: Clear to Auscultation Bilaterally
Cardiac: S1/S2 and Regular Rhythm
GI: Soft and Non Tender. Positive bowel sounds.
Neuro: Awake, Alert.
Psych: Confused; No Judgment/Insight

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
confusion.
There was thought that he may have undiagnosed dementia and his mental status would improve once he returns home; however, he remained lethargic and MS worsened at home. He is now unable to follow direction and mumbles words.
He was found to be hypoxia with pulse ox 80s by EMS (likely too confused to keep his nasal cannula on).
CT chest from ED:
No evidence of pulmonary embolism.
COPD. Atelectasis versus scarring in the posterior lung bases, right greater than left. Irregular parenchymal opacity in the right upper lobe and adjacent small nodule remains stable. 5.3 mm spiculated density in the lateral right midlung zone
remains stable.
Interval development of pleural-based 2 x 1 cm ovoid opacity in the posterior right upper lobe. Recommend follow-up in 3 months after conservative therapy.
Assessment/Plan
# Acute metabolic encephalopathy likely due to hypoxia vs COVID encephalopathy
# Persistent agitation/restlessness
# Acute on chronic hypoxic respiratory failure
# Recent bacterial pneumonia and COVID-19 (unvaccinated)
His recent CT head was negative for intracranial abnormality
Repeat CT Head unremarkable, IV Ativan for agitation
Neuro consulted, appreciate evaluation
LP with no meningitis and meningoencephalitis panel is negative --> no need for antibiotics
MRI brain with no acute changes
Continue IV Thiamine
Keep O2 support at 3L NC (baseline requirement), restraint with hand mitts if needed
Continue bronchodilators and inhaled corticosteroids
Of note, pt recently completed Paxlovid (last dose 06/23)
Stop IV Decadron/steroids as per pulmonary recommendations (steroids could also be contributing to the mental status change)
He was recently discharged with Ceftin and doxycycline; no need for further antibiotics as per ID.
PT OT eval
Appreciate pulmonary and ID
Holding Buspar, Psychiatry consulted for patient's persistent agitation/restlessness needing restraints, appreciate evaluation and recommendations: continue Ativan 0.25 mg PO BID
Now off restraints and confused, but calm today
# History of of RUL SCC diagnosis 03/17/[address]23
CT chest this admission noted interval development of right upper lobe opacity, recommend outpatient follow-up in 3 months
Close follow-up with pulmonary outpatient
# Recent diagnosis of Brugada syndrome
He can follow-up with cardiology outpatient
# COPD
Cont Bronchodilators with inhalers
# Anxiety
At this point, I would highly recommend to hold further buspirone, continue low-dose Xanax as needed
# BPH
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
# Smoker
Nicotine patch
#Severe Protein calorie Malnutrition
DVT prophylaxis: Lovenox 40 mg SQ daily
CODE STATUS: Full code
Anticipated Discharge: > 48 hours
Subjective/Interval History
-
Date of Service: June 30, 2024
Patient was seen and examined. He remained confused, although he was calm.
Objective Data
-
Vital Signs:
Vital Signs
Temp Pulse Resp BP Pulse Ox
96.5 F L 84 20 104/69 96
08/16/24 11:00 06/30/24 11:00 06/30/24 11:00 06/30/24 11:00 06/30/24 11:00
I&O
06/29/24 06/30/24 07/01/24
06:59 06:59 06:59
Intake Total 240 / 240 60 / 60
Output Total 175 / 175
Balance 65 / 65 60 / 60
[2024-06-30 15:28] VITALS: BP 109/74
--- NOTE | 2024-06-30 15:50 | W.PN.UPDATE ---
Update Note
Progress Note Update
Patient remains confused but is gradually improving per his partner who is at the bedside. Exam is nonfocal; he was unable to state the date; knew month with prompting; unable to state season. Often tangential in conversation but knew location.
No involuntary movements. Reviewed MRI findings with patient's partner. Would continue supportive care, medication management per psychiatry. He may h ave a component of undiagnosed cognitive impairment which has worsened with being in a foreign
environment; MRI brain negative for stroke or other findings clearly explaining his symptoms. Already had an LP.
[2024-06-30] MEDS: TYLENOL 650 MG PO (17:01)
[2024-06-30] MEDS: LOVENOX SC (17:08)
[2024-06-30] MEDS: ATIVAN 0.25 MG PO (19:25)
[2024-06-30 22:00] LABS: Paraneoplastic Ab IgG, CSF None Detected (None Detected)
[2024-06-30 23:04] VITALS: BP 92/62
[2024-07-01 07:00] VITALS: BP 138/91
[2024-07-01 07:21] LABS: Hematocrit 38.2 % (39.0-52.0); Mean Corp Hgb Conc. 36.6 g/dL (33.0-37.0); Mean Corpuscular Hgb 30.1 pg (27.0-31.0); Mean Corpuscular Volume 82.2 fL (80.0-94.0); Mean Platelet Volume 10.5 fL (7.4-10.4); Platelet Count 252 10^3/uL (130-400); Red Blood Cell Count 4.65 10^6/uL (4.70-6.10); Red Cell Dist. Width 13.3 % (11.5-14.5)
[2024-07-01] MEDS: ATIVAN 0.25 MG PO ×2 (07:30→20:01)
[2024-07-01] MEDS: SYMBICORT 80/4.5 MCG INHALER 2 PUFF INH ×2 (08:08→20:38)
[2024-07-01] MEDS: SPIRIVA RESPIMAT 2.5 MCG 2 PUFF INH (08:08)
[2024-07-01 08:10] LABS: ALT (SGPT) 47 U/L (0-50); AST (SGOT) 35 U/L (17-59); Alkaline Phosphatase 80 U/L (38-126); Blood Urea Nitrogen 38 mg/dl (9-20); Calcium 9.1 mg/dl (8.4-10.2); Carbon Dioxide 25 mmol/L (22-30); Chloride 103 mmol/L (98-107); Estimated Creatinine Clearance 74 ml/min; Glucose 114 mg/dl (70-99); Sodium 138 mmol/L (135-145); Total Bilirubin 1.6 mg/dl (0.2-1.3); Total Protein 6.4 g/dl (6.3-8.2); eGFR > 60.00
[2024-07-01] MEDS: KCL 40 MEQ PO (09:18)
--- NOTE | 2024-07-01 09:35 | PTCARENOTE ---
pt oriented to self only. confused about current condition. asking to put his boots on and go to his truck. oob in chair with alarm on found standing urinating into pt own belonging bag. pt does not understand to use call devi for assistance
with bathroom. chair alarm going off multiple times with pt found walking in room unsteady on feet. medsitter unavailable. reported to MD restraints ordered.
--- NOTE | 2024-07-01 12:42 | CM ---
Patient with soft limb restraints.
Continues with confusion.
PT/OT recommending skilled rehab, family interested in [facility].
Plan: skilled rehab once medically stable.
--- NOTE | 2024-07-01 12:52 | W.PN.HOSP.TC ---
Today's Communication/Plan
-
Placement for Tuesday 07/03 per case management
Assessment / Plan
Assessment / Plan
Physical Exam
General: Not in acute distress
Respiratory: Clear to Auscultation Bilaterally
Cardiac: S1/S2 and Regular Rhythm
GI: Soft and Non Tender. Positive bowel sounds.
Neuro: Awake, Alert.
Psych: Confused; No Judgment/Insight

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
confusion.
There was thought that he may have undiagnosed dementia and his mental status would improve once he returns home; however, he remained lethargic and MS worsened at home. He is now unable to follow direction and mumbles words.
He was found to be hypoxia with pulse ox 80s by EMS (likely too confused to keep his nasal cannula on).
CT chest from ED:
No evidence of pulmonary embolism.
COPD. Atelectasis versus scarring in the posterior lung bases, right greater than left. Irregular parenchymal opacity in the right upper lobe and adjacent small nodule remains stable. 5.3 mm spiculated density in the lateral right midlung zone
remains stable.
Interval development of pleural-based 2 x 1 cm ovoid opacity in the posterior right upper lobe. Recommend follow-up in 3 months after conservative therapy.
Assessment/Plan
# Acute metabolic encephalopathy likely due to hypoxia vs COVID encephalopathy
# Persistent agitation/restlessness
# Acute on chronic hypoxic respiratory failure
# Recent bacterial pneumonia and COVID-19 (unvaccinated)
His recent CT head was negative for intracranial abnormality
Repeat CT Head unremarkable, IV Ativan for agitation
Neuro consulted, appreciate evaluation
LP with no meningitis and meningoencephalitis panel is negative --> no need for antibiotics
MRI brain with no acute changes
Continue IV Thiamine
Keep O2 support at 3L NC (baseline requirement), restraint with hand mitts if needed
Continue bronchodilators and inhaled corticosteroids
Of note, pt recently completed Paxlovid (last dose 06/23)
Stop IV Decadron/steroids as per pulmonary recommendations (steroids could also be contributing to the mental status change)
He was recently discharged with Ceftin and doxycycline; no need for further antibiotics as per ID.
PT OT eval
Appreciate pulmonary and ID
Holding Buspar, Psychiatry consulted for patient's persistent agitation/restlessness needing restraints, appreciate evaluation and recommendations: continue Ativan 0.25 mg PO BID
Now off restraints and confused, but calm today
# History of of RUL SCC diagnosis 03/17/[address] chest this admission noted interval development of right upper lobe opacity, recommend outpatient follow-up in 3 months
Close follow-up with pulmonary outpatient
#Hypokalemia
-Replaced on 07/01/24
-Magnesium okay
-Continue to monitor
# Recent diagnosis of Brugada syndrome
He can follow-up with cardiology outpatient
# COPD
Cont Bronchodilators with inhalers
# Anxiety
At this point, I would highly recommend to hold further buspirone, continue low-dose Xanax as needed
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
# Smoker
Nicotine patch
#Severe Protein calorie Malnutrition
DVT prophylaxis: Lovenox 40 mg SQ daily
CODE STATUS: Full code
Anticipated Discharge: > 48 hours
Subjective/Interval History
-
Date of Service: July 01, 2024
Patient was seen and examined. He was sitting comfortably in a chair and denied any new significant symptoms or complaints. Later in the morning, restraints were needed.
Objective Data
-
Labs:
Laboratory Results
07/01/24
06:36
WBC 11.0 H
Hgb 14.0
Hct 38.2 L
Plt Count 252
Sodium 138
Potassium 3.0 L
Chloride 103
Carbon Dioxide 25
BUN 38 H
Creatinine 0.5 L
Glucose 114 H
Calcium 9.1
Total Bilirubin 1.6 H
AST 35
ALT 47
Alkaline Phosphatase 80
Vital Signs:
Vital Signs
Temp Pulse Resp BP Pulse Ox
97.6 F 91 16 138/91 97
07/01/24 07:00 07/01/24 08:12 07/01/24 08:12 07/01/24 07:00 07/01/24 08:12
I&O
06/30/24 07/01/24 07/02/24
06:59 06:59 06:59
Intake Total 60 / 60 640 / 640
Balance 60 / 60 640 / 640
--- NOTE | 2024-07-01 14:21 | W.PN.UPDATE ---
Update Note
Progress Note Update
Psychiatry follow up for management of agitation/confusion. Chart reviewed. Last seen by Dr. Clement yesterday at which time Ativan was decreased to 0.25mg BID. Patient presents confused and focused on finding his boots to leave the hospital. He
knows he is at [facility]. He is oriented to self and knows who his is. Otherwise he is unable to answer orientation questions including year, month, date/day. His states he has shown improvement since readmission but that he was
better yesterday than today. She thinks he does respond to Ativan. Spoke with nursing about option to add low dose Seroquel PRN if needed to see if he responds and if this could be a good adjunct when agitation escalates. 06/25 Qtc 438
Plan- Continue Ativan. Start trial of Seroquel 12.5mg BID PRN anxiety/agitation. Psychiatry will follow up.
[2024-07-01 15:00] VITALS: BP 116/88
[2024-07-01] MEDS: LOVENOX 40 MG SC (17:06)
[2024-07-01] MEDS: TYLENOL 650 MG PO (20:04)
[2024-07-01 23:30] VITALS: BP 101/59
[2024-07-02] MEDS: SEROQUEL 12.5 MG PO (02:17)
--- NOTE | 2024-07-02 02:52 | PTCARENOTE ---
1999 Pt confused and disoriented but pleasantly laying in bed. Scheduled 0.25mg Ativan given at 1999. Pt able to fall asleep without issue.
199 Pt awake and repeatedly setting off bed alarm to walk back and forth to the bathroom. Pt trying to leave room, refusing to stay in bed or chair. PRN Seroquel given at 214. Pt continues to try to leave room, becoming combative with staff when
trying to redirect. Pt ends up in hallway and refuses to return to room, pushing staff away and becoming increasingly agitated in hallway. Security called who escorted pt back to bed. NIC Paredes notified, BL wrist restraints ordered and
applied.
[2024-07-02 07:10] VITALS: BP 119/72
[2024-07-02] MEDS: SPIRIVA RESPIMAT 2.5 MCG 2 PUFF INH (07:43)
[2024-07-02] MEDS: SYMBICORT 80/4.5 MCG INHALER 2 PUFF INH (07:43)
[2024-07-02] MEDS: ATIVAN PO ×4 (07:47→21:10)
--- NOTE | 2024-07-02 11:59 | W.PN.HOSP.TC ---
Today's Communication/Plan
-
SNF placement for tomorrow as per case management
Continue Ativan and Seroquel
Assessment / Plan
Assessment / Plan
Physical Exam
General: Not in acute distress
Respiratory: Clear to Auscultation Bilaterally
Cardiac: S1/S2 and Regular Rhythm
GI: Soft and Non Tender. Positive bowel sounds.
Neuro: Awake, Alert.
Psych: Confused; No Judgment/Insight

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
confusion.
There was thought that he may have undiagnosed dementia and his mental status would improve once he returns home; however, he remained lethargic and MS worsened at home. He is now unable to follow direction and mumbles words.
He was found to be hypoxia with pulse ox 80s by EMS (likely too confused to keep his nasal cannula on).
CT chest from ED:
No evidence of pulmonary embolism.
COPD. Atelectasis versus scarring in the posterior lung bases, right greater than left. Irregular parenchymal opacity in the right upper lobe and adjacent small nodule remains stable. 5.3 mm spiculated density in the lateral right midlung zone
remains stable.
Interval development of pleural-based 2 x 1 cm ovoid opacity in the posterior right upper lobe. Recommend follow-up in 3 months after conservative therapy.
Assessment/Plan
# Acute metabolic encephalopathy likely due to hypoxia vs COVID encephalopathy
# Persistent agitation/restlessness
# Acute on chronic hypoxic respiratory failure
# Recent bacterial pneumonia and COVID-19 (unvaccinated)
His recent CT head was negative for intracranial abnormality
Repeat CT Head unremarkable, IV Ativan for agitation
Neuro consulted, appreciate evaluation
LP with no meningitis and meningoencephalitis panel is negative --> no need for antibiotics
MRI brain with no acute changes
Continue IV Thiamine
Keep O2 support at 3L NC (baseline requirement), restraint with hand mitts if needed
Continue bronchodilators and inhaled corticosteroids
Of note, pt recently completed Paxlovid (last dose 06/23)
Stop IV Decadron/steroids as per pulmonary recommendations (steroids could also be contributing to the mental status change)
He was recently discharged with Ceftin and doxycycline; no need for further antibiotics as per ID.
PT OT eval
Appreciate pulmonary and ID
Holding Buspar, Psychiatry consulted for patient's persistent agitation/restlessness needing restraints, appreciate evaluation and recommendations: continue Ativan 0.25 mg PO BID, Seroquel also started
Now off restraints and confused, but calm today
# History of of RUL SCC diagnosis 03/17/2023
CT chest this admission noted interval development of right upper lobe opacity, recommend outpatient follow-up in 3 months
Close follow-up with pulmonary outpatient
#Hypokalemia
-Replaced on 07/01/24
-Magnesium okay
-Continue to monitor
# Recent diagnosis of Brugada syndrome
He can follow-up with cardiology outpatient
# COPD
Cont Bronchodilators with inhalers
# Anxiety
At this point, I would highly recommend to hold further buspirone, continue low-dose Xanax as needed
# BPH
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
# Smoker
Nicotine patch
#Severe Protein calorie Malnutrition
DVT prophylaxis: Lovenox 40 mg SQ daily
CODE STATUS: Full code
Anticipated Discharge: 24 - 48 hours
Subjective/Interval History
-
Date of Service: July 02, 2024
Patient was seen and examined. He denied any new significant symptoms or complaints.
Objective Data
-
Vital Signs:
Vital Signs
Temp Pulse Resp BP Pulse Ox
97.4 F 75 16 119/72 96
07/02/24 07:10 07/02/24 07:45 07/02/24 07:45 07/02/24 07:10 07/02/24 07:45
I&O
07/01/24 07/02/24 07/03/24
06:59 06:59 06:59
Intake Total 640 / 640 660 / 660
Balance 640 / 640 660 / 660
--- NOTE | 2024-07-02 12:50 | W.PN.UPDATE ---
Update Note
Progress Note Update
Psychiatry follow up for management of agitation/confusion. Last night patient was agitated/confused and trying to leave. He received Seroquel 12.5mg PRN. He is currently sleeping but arousable. AM Ativan has been held. is present stating
patient seemed happy to have used the bathroom on his own yesterday. We went over the potential risks/benefits of Seroquel addition to PRNs.
06/25 Qtc 438
Plan- Continue Ativan, hold for sedation. Continue Seroquel 12.5mg BID PRN anxiety/agitation. Psychiatry will follow up.
[2024-07-02 15:08] VITALS: BP 103/53
--- NOTE | 2024-07-02 15:40 | CM ---
Spoke with patients significant other.
Per Amy this confusion is all new.
Patient was independent prior to admission.
Off restraints.
Updated PT/OT notes pending.
Per Amy, [facility] supposed to have a bed tomorrow, explained CM will check for bed availoability in am.
Amy asking if smoking is allowed at [facility], will check with liaison.
Patient will require insurance auth once updated PT/OT notes available.
Plan: skilled rehab once bed available and auth obtained, hopefully [facility].
[2024-07-02] MEDS: LOVENOX SC (17:10)
[2024-07-02] MEDS: ATIVAN 0.5 MG IM (17:30)
[2024-07-02] MEDS: SYMBICORT 80/4.5 MCG INHALER INH (20:25)
[2024-07-02 21:53] LABS: % Basophils 0.1 % (0-2); % Eosinophils 0.3 % (0-6); % Immature Granulocytes 0.5 % (0-0.5); % Lymphocytes 13.3 % (20.5-51.1); % Monocytes 12.3 % (1.7-9.3); % Neutrophils 73.5 % (42.2-75.2); Absolute Lymphocytes 1.2 10^3/uL (1.2-3.4); Absolute Monocytes 1.1 10^3/uL (0.1-0.6); Absolute Neutrophils 6.3 10^3/uL (1.4-6.5); Hematocrit 33.8 % (39.0-52.0); Hemoglobin 12.2 g/dL (13.0-18.0); Mean Corp Hgb Conc. 36.1 g/dL (33.0-37.0); Mean Platelet Volume 10.6 fL (7.4-10.4); Nucleated Red Blood Cells % 0 % (-); Platelet Count 201 10^3/uL (130-400); Red Blood Cell Count 4.07 10^6/uL (4.70-6.10); Red Cell Dist. Width 13.6 % (11.5-14.5); White Blood Cell Count 8.6 10^3/uL (4.8-10.8)
[2024-07-02 21:59] LABS: Blood Urea Nitrogen 39 mg/dl (9-20); Calcium 8.9 mg/dl (8.4-10.2); Carbon Dioxide 26 mmol/L (22-30); Chloride 107 mmol/L (98-107); Estimated Creatinine Clearance 63 ml/min; Glucose 139 mg/dl (70-99); Potassium 2.9 mmol/L (3.5-5.1); Sodium 138 mmol/L (135-145); eGFR > 60.00
[2024-07-02 23:59] VITALS: BP 95/63
[2024-07-03 07:00] VITALS: BP 98/63
[2024-07-03] MEDS: ATIVAN 0.25 MG PO ×2 (08:01→20:50)
[2024-07-03] MEDS: SPIRIVA RESPIMAT 2.5 MCG INH (08:11)
[2024-07-03] MEDS: SYMBICORT 80/4.5 MCG INHALER INH (08:12)
--- NOTE | 2024-07-03 09:46 | W.PN.HOSP.TC ---
Addendum entered and electronically signed by Coleen Franks MD 07/03/24 13:30:
# Acute metabolic encephalopathy likely due to hypoxia vs COVID encephalopathy
# Suspect underlying dementia/cognitive impairment
CT head unremarkable, MRI brain with no acute changes
Continue p.o. 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 at bedside did state that patient'S behavior is better on benzo
LP with no meningitis, meningoencephalitis panel is negative, no need for antibiotics
Cont O2 support at 3L NC (baseline requirement)
Psych on board, Holding MITTEN STITCHER Buspar, continue Ativan 0.25 mg PO BID, Seroquel PRN started
# Recent COVID infection
Of note, pt recently completed Paxlovid (last dose 06/23)
Now off Decadron/steroids per pulmonary (steroids could also be contributing to the mental status change)
# RUL Small Cell Carcinoma diagnosis 03/17/[address]23
CT showed right upper lobe opacity,
Informed about outpatient follow-up in 3 months
# Hypokalemia
replete
Dispo: SNF
Original Note:
Today's Communication/Plan
-
Discharge to SNF today if cleared by Psych
Assessment / Plan
Assessment / Plan
CT chest from ED:
No evidence of pulmonary embolism.
COPD. Atelectasis versus scarring in the posterior lung bases, right greater than left. Irregular parenchymal opacity in the right upper lobe and adjacent small nodule remains stable. 5.3 mm spiculated density in the lateral right midlung zone
remains stable.
Interval development of pleural-based 2 x 1 cm ovoid opacity in the posterior right upper lobe. Recommend follow-up in 3 months after conservative therapy.
Assessment/Plan
Acute metabolic encephalopathy likely due to hypoxia vs COVID encephalopathy
-CT head was negative for intracranial abnormality
Repeat CT Head unremarkable, IV Ativan for agitation
Neuro consulted, appreciate evaluation
LP with no meningitis and meningoencephalitis panel is negative --> no need for antibiotics
MRI brain with no acute changes
Continue IV Thiamine
Keep O2 support at 3L NC (baseline requirement), restraint with hand mitts if needed
Continue bronchodilators and inhaled corticosteroids
Of note, pt recently completed Paxlovid (last dose 06/23)
Stop IV Decadron/steroids as per pulmonary recommendations (steroids could also be contributing to the mental status change)
He was recently discharged with Ceftin and doxycycline; no need for further antibiotics as per ID.
PT OT eval
Appreciate pulmonary and ID
Holding Buspar, Psychiatry consulted for patient's persistent agitation/restlessness needing restraints, appreciate evaluation and recommendations: continue Ativan 0.25 mg PO BID, hold for sedation if needed, Seroquel also started
Now off restraints and confused, but calm today. Incoherent and complaining of thick water? Wants water replaced often
-Awaiting Psych input today
-SNF placement today, discharge according to psych recommendation
RUL Small Cell Carcinoma diagnosis 03/17/[address]23
CT showed right upper lobe opacity, outpatient follow-up in 3 months
Close follow-up with pulmonary outpatient
Hypokalemia
-Replaced on 07/01/24
-Magnesium okay
-Continue to monitor
-2.9 today, replete
Brugada syndrome
Follow-up with cardiology outpatient
COPD
Cont Bronchodilators with inhalers
Anxiety
Hold buspirone, continue low-dose Xanax as needed
BPH
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
Smoker
Nicotine patch
Severe Protein calorie Malnutrition
DVT prophylaxis: Lovenox 40 mg SQ daily
CODE STATUS: Full code
Anticipated Discharge: Today
Subjective/Interval History
-
Date of Service: July 03, 2024
Patient had no adverse events over night. Nurse says patient has not been taking his medications properly, has been biting his Ativan. Has not been very coherent.
Objective Data
-
Labs:
Laboratory Results
07/02/24 07/03/24
21:39 09:09
WBC 8.6 Pending
Hgb 12.2 L Pending
Hct 33.8 L Pending
Plt Count 201 D Pending
Sodium 138 Pending
Potassium 2.9 L Pending
Chloride 107 Pending
Carbon Dioxide 26 Pending
BUN 39 H Pending
Creatinine 0.7 Pending
Glucose 139 H Pending
Calcium 8.9 Pending
Total Bilirubin Pending
AST Pending
ALT Pending
Alkaline Phosphatase Pending
Vital Signs:
Vital Signs
Temp Pulse Resp BP Pulse Ox
97.0 F 76 14 98/63 94
07/02/24 23:59 07/03/24 07:00 07/03/24 07:00 07/03/24 07:00 07/03/24 07:00
I&O
07/02/24 07/03/24 07/04/24
06:59 06:59 06:59
Intake Total 660 / 660 600 / 600
Balance 660 / 660 600 / 600
Review of Systems
-
Unable to obtain full review of systems at this time due to: Other (Incoherent at times)
History Source: Patient
Constitutional: Denies Fever, No Appetite or Sleep Disturbance
Respiratory: Denies Cough, Trouble Breathing or Wheezing
Cardiac: Denies Chest Pain, Palpitations or Syncope
Abdomen/GI: Denies Abdominal Pain, Nausea or Vomiting
Psych: Reports Anxious
Physical Exam
-
General: Well Developed, Comfortable and Conversant
Respiratory: Clear to Auscultation and Non Labored Respirations
Cardiac: Regular Rhythm and S1/S2
GI: Soft, Nontender and Nondistended
Musculoskeletal: No Clubbing, No Cyanosis and No Edema
Neuro: Awake, Alert, Oriented and AO x 3
Psych: Anxious and Other (Incoherent at times)
[2024-07-03 09:54] LABS: % Eosinophils 0.4 % (0-6); % Immature Granulocytes 0.4 % (0-0.5); % Lymphocytes 15.3 % (20.5-51.1); % Monocytes 12.5 % (1.7-9.3); % Neutrophils 71.4 % (42.2-75.2); Absolute Lymphocytes 1.2 10^3/uL (1.2-3.4); Absolute Neutrophils 5.8 10^3/uL (1.4-6.5); Hematocrit 37.1 % (39.0-52.0); Hemoglobin 13.4 g/dL (13.0-18.0); Mean Corp Hgb Conc. 36.1 g/dL (33.0-37.0); Mean Corpuscular Hgb 30.7 pg (27.0-31.0); Mean Corpuscular Volume 84.9 fL (80.0-94.0); Mean Platelet Volume 10.7 fL (7.4-10.4); Nucleated Red Blood Cells % 0 % (-); Platelet Count 199 10^3/uL (130-400); Red Blood Cell Count 4.37 10^6/uL (4.70-6.10); Red Cell Dist. Width 13.6 % (11.5-14.5); White Blood Cell Count 8.1 10^3/uL (4.8-10.8)
[2024-07-03 10:48] LABS: ALT (SGPT) 36 U/L (0-50); AST (SGOT) 30 U/L (17-59); Albumin 3.6 g/dl (3.5-5.0); Alkaline Phosphatase 76 U/L (38-126); Blood Urea Nitrogen 36 mg/dl (9-20); Carbon Dioxide 24 mmol/L (22-30); Chloride 107 mmol/L (98-107); Estimated Creatinine Clearance 74 ml/min; Glucose 103 mg/dl (70-99); Magnesium 2.3 mg/dl (1.6-2.3); Potassium 3.4 mmol/L (3.5-5.1); Sodium 139 mmol/L (135-145); Total Bilirubin 1.1 mg/dl (0.2-1.3); Total Protein 5.9 g/dl (6.3-8.2); eGFR > 60.00
--- NOTE | 2024-07-03 11:37 | CM ---
Addendum entered by India Anderson 07/03/24 15:11:
PT/OT saw patient today recommending [facility]. Await bed availability. Needs insurance authorization & ambulance transport.
Addendum entered by India Anderson 07/03/24 14:31:
Spoke with SO regarding other SNF's-[facility], [facility] as well as [facility] that allow smoking. She declined these options.
Original Note:
Patient seen at bedside.
Confused.
TONJA called Rolf the liaison regarding bed availability at [facility]. Per Rolf they will do an on site visit tomorrow to determine whether or not they can accept him.
Refusing therapy 07/01 & 07/02.
Will need updated therapy notes for insurance authorization.
PLAN: Discharge when medically stable to [facility] pending bed availability. [facility] to do on site visit assessment tomorrow.
[2024-07-03 15:00] VITALS: BP 107/70
[2024-07-03] MEDS: LOVENOX 40 MG SC (17:28)
[2024-07-03] MEDS: SYMBICORT 80/4.5 MCG INHALER 2 PUFF INH (19:15)
[2024-07-03 23:30] VITALS: BP 102/60
[2024-07-04 07:35] VITALS: BP 108/67
[2024-07-04] MEDS: SYMBICORT 80/4.5 MCG INHALER 2 PUFF INH (08:04)
[2024-07-04] MEDS: SPIRIVA RESPIMAT 2.5 MCG 2 PUFF INH (08:05)
[2024-07-04] MEDS: ATIVAN 0.25 MG PO ×2 (08:53→20:06)
--- NOTE | 2024-07-04 09:09 | W.PN.HOSP.TC ---
Addendum entered and electronically signed by Coleen Franks MD 07/04/24 11:35:
A/P:
# Acute metabolic encephalopathy likely due to hypoxia vs COVID encephalopathy
# Suspect underlying dementia/cognitive impairment
CT head unremarkable, MRI brain with no acute changes
Continue p.o. 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 at bedside did state that patient'S behavior is better on benzo
LP with no meningitis, meningoencephalitis panel is negative, no need for antibiotics
Cont O2 support at 3L NC (baseline requirement) if able, pt appear to be doing well on RA (96% on RA)
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
Low dose Seroquel PRN was started but pt has not needed for several days
# Recent COVID infection
Of note, pt recently completed Paxlovid (last dose 06/23)
Off Decadron/steroids per pulmonary (steroids could also be contributing to the mental status change)
# RUL Small Cell Carcinoma diagnosis 03/17/[address]23
CT showed right upper lobe opacity,
Informed about outpatient follow-up in 3 months
# Hypokalemia
repleted
Dispo: SNF
Original Note:
Today's Communication/Plan
-
Continue current regimen of medications, awaiting SNF evaluation and willingness to take patient
Assessment / Plan
Assessment / Plan
CT chest from ED:
No evidence of pulmonary embolism.
COPD. Atelectasis versus scarring in the posterior lung bases, right greater than left. Irregular parenchymal opacity in the right upper lobe and adjacent small nodule remains stable. 5.3 mm spiculated density in the lateral right midlung zone
remains stable.
Interval development of pleural-based 2 x 1 cm ovoid opacity in the posterior right upper lobe. Recommend follow-up in 3 months after conservative therapy.
Assessment/Plan
Acute metabolic encephalopathy likely due to hypoxia vs COVID encephalopathy
-CT head was negative for intracranial abnormality
Repeat CT Head unremarkable, IV Ativan for agitation
Neuro consulted, appreciate evaluation
LP with no meningitis and meningoencephalitis panel is negative --> no need for antibiotics
MRI brain with no acute changes
Continue IV Thiamine
Keep O2 support at 3L NC (baseline requirement), restraint with hand mitts if needed
Continue bronchodilators and inhaled corticosteroids
Of note, pt recently completed Paxlovid (last dose 06/23)
Stop IV Decadron/steroids as per pulmonary recommendations (steroids could also be contributing to the mental status change)
He was recently discharged with Ceftin and doxycycline; no need for further antibiotics as per ID.
PT OT eval
Appreciate pulmonary and ID
Holding Buspar, Psychiatry consulted for patient's persistent agitation/restlessness needing restraints, appreciate evaluation and recommendations: continue Ativan 0.25 mg PO BID, hold for sedation if needed, Seroquel also started
-SNF placement today, discharge according to psych recommendation
-Patient's partner states his mood has been much more stable on Ativan, wants to continue current regimen after discharge
RUL Small Cell Carcinoma diagnosis 03/17/[address]23
CT showed right upper lobe opacity, outpatient follow-up in 3 months
Close follow-up with pulmonary outpatient
Talked with patient's partner about following up after discharge
Hypokalemia
-Replaced on 07/03, patient states he crushed tablet and had them in pieces throughout the day
-Magnesium okay
-Continue to monitor
-No further repletion at this time
-3.4 yesterday, patient refused blood work today
Brugada syndrome
Follow-up with cardiology outpatient
COPD
Cont Bronchodilators with inhalers
Anxiety
Hold buspirone, continue low-dose Xanax as needed
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
Smoker
Nicotine patch
Severe Protein calorie Malnutrition
DVT prophylaxis: Lovenox 40 mg SQ daily
CODE STATUS: Full code
Anticipated Discharge: Within 24 hours
Subjective/Interval History
-
Date of Service: July 04, 2024
Patient has been feeling well, his partner on his bedside states that he was much better overnight and has been much more stable with his current medication regimen
Objective Data
-
Labs:
Laboratory Results
07/04/24
06:00
WBC Pending
Hgb Pending
Hct Pending
Plt Count Pending
Sodium Pending
Potassium Pending
Chloride Pending
Carbon Dioxide Pending
BUN Pending
Creatinine Pending
Glucose Pending
Calcium Pending
Total Bilirubin Pending
AST Pending
ALT Pending
Alkaline Phosphatase Pending
Vital Signs:
Vital Signs
Temp Pulse Resp BP Pulse Ox
98.1 F 78 18 108/67 96
07/03/24 23:30 07/04/24 08:08 07/04/24 08:08 07/04/24 07:35 07/04/24 08:08
I&O
07/03/24 07/04/24 07/05/24
06:59 06:59 06:59
Intake Total 600 / 600 240 / 240
Balance 600 / 600 240 / 240
Review of Systems
-
Unable to obtain full review of systems at this time due to: Dementia
History Source: Patient and Family
Constitutional: Denies Fever or Fatigue
Respiratory: Denies Cough or Trouble Breathing
Cardiac: Denies Chest Pain, Diaphoresis or Palpitations
Abdomen/GI: Denies Abdominal Pain, Nausea or Vomiting
Neuro: Denies Dizzy, Headache or Weakness
Physical Exam
-
General: No Apparent Distress and Comfortable
Respiratory: Clear to Auscultation and Non Labored Respirations
Cardiac: Regular Rhythm and S1/S2
GI: Soft, Nontender and Nondistended
Musculoskeletal: No Clubbing, No Cyanosis and No Edema
Skin: Warm and Dry
Neuro: Awake, Alert and Other
Psych: Apparent Dementia
Data Reviewed
-
Labs: Labs Reviewed by me, Discussed with Physician, Discussed with Patient and Discussed with Family
--- NOTE | 2024-07-04 11:23 | CM ---
Addendum entered by India Anderson 07/04/24 16:32:
Call from Leilani Hayes from [facility]. Insurance approved for [facility]
Start date 07/04, Next review date 07/06
Reference #: [id number]
Jewelry Polisher is Carissa Melton
Fax updates to: [phone]
Call [phone] Escalante with update.
Awaiting ambulance transport availability.
Addendum entered by India Anderson 07/04/24 14:36:
IMM explained & signed. Placed in chart.
Addendum entered by [facility] 07/04/24 12:23:
Called [facility] for Insurance Authorization ([phone]) & spoke to Marry Reid
Reference # [id number] - Will fax clinicals to [phone].
Addendum entered by India Anderson 07/04/24 11:52:
[facility] Report #: [phone]
Fax #: [phone]
Ambulance forms on chart
Original Note:
Patient seen at bedside.
Continues no restraints per nursing
Spoke with Cristina the Liaison at [facility] - does not need to do on site assessment.:
They have bed available today. Will need to get insurance authorization.
Spoke with Amy GOSS & updated her.
TT Dr. Escalante & will keep him updated.
Updated clinicals sent via [facility].
PLAN: Tentative discharge to [facility] pending insurance authorization.
--- NOTE | 2024-07-04 14:45 | W.PN.UPDATE ---
Update Note
Progress Note Update
Pt seen, sitting up in chair clothed only in his underwear, alert and making eye contact, but rambling and perseverating about having 'a lot to do.' Lunch tray untouched. Pt continues to appear disoriented/confused, though sensorium appear mostly
intact. Pt noted to be better overall on Ativan 0.25 mg BID. Pt has not required prn Seroquel the last couple days.
Imp: TME, improving slowly, with persistent confusion; suspected underlying dementia
Rec: continue Ativan BID, continue Seroquel as needed.
will follow
[2024-07-04] MEDS: SYMBICORT 80/4.5 MCG INHALER INH (20:01)
[2024-07-04] MEDS: LOVENOX SC (20:06)
[2024-07-04 23:20] VITALS: BP 101/65
--- NOTE | 2024-07-05 07:00 | W.PN.HOSP.TC ---
Addendum entered and electronically signed by Coleen Franks MD 07/05/24 11:01:
A/P:
# Acute metabolic encephalopathy likely due to hypoxia vs COVID encephalopathy
# Suspect underlying dementia/cognitive impairment
CT head unremarkable, MRI brain with no acute changes
Continue p.o. 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 at bedside did state that patient's behavior is better on benzo
LP with no meningitis, meningoencephalitis panel is negative, no need for antibiotics
Cont O2 support at 3L NC (baseline requirement) if able, pt appears to be doing well on RA (96% on RA)
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
Low dose Seroquel PRN was started but pt has not needed for several days
# Recent COVID infection
pt recently completed Paxlovid (last dose 06/23)
Off Decadron/steroids per pulmonary (steroids could also be contributing to the mental status change)
# RUL Small Cell Carcinoma diagnosis 03/17/[address]23
CT showed right upper lobe opacity,
Informed about outpatient follow-up in 3 months
# Hypokalemia
repleted
Dispo: SNF
Original Note:
Today's Communication/Plan
-
Patient to be discharged to SNF, awaiting transportation
Assessment / Plan
Assessment / Plan
Assessment:
73y male with a history of COPD, Anxiety, BPH came to the hospital with worsening dementia and altered mental status. Patient has been feeling well after changing his anxiety medications to only Ativan. Patient awaiting transportation to SNF later
today.
Plan
Acute metabolic encephalopathy likely due to hypoxia vs COVID encephalopathy
-CT head was negative for intracranial abnormality
Repeat CT Head unremarkable, IV Ativan for agitation
Neuro consulted, appreciate evaluation
LP with no meningitis and meningoencephalitis panel is negative --> no need for antibiotics
MRI brain with no acute changes
Continue IV Thiamine
Keep O2 support at 3L NC (baseline requirement), restraint with hand mitts if needed
Continue bronchodilators and inhaled corticosteroids
Of note, pt recently completed Paxlovid (last dose 06/23)
Stop IV Decadron/steroids as per pulmonary recommendations (steroids could also be contributing to the mental status change)
He was recently discharged with Ceftin and doxycycline; no need for further antibiotics as per ID.
PT OT eval
Holding Buspar, Psychiatry consulted for patient's persistent agitation/restlessness needing restraints, appreciate evaluation and recommendations: continue Ativan 0.25 mg PO BID, hold for sedation if needed, Seroquel also started
-SNF placement today
-Patient's partner states his mood has been much more stable on Ativan, wants to continue current regimen after discharge
RUL Small Cell Carcinoma diagnosis 03/17/[address]23
[address] showed right upper lobe opacity, outpatient follow-up in 3 months
Close follow-up with pulmonary outpatient
Talked with patient's partner about following up after discharge
Hypokalemia
-Replaced on 07/03, patient states he crushed tablet and had them in pieces throughout the day
-Magnesium okay
-Continue to monitor
-No further repletion at this time
-3.4 07/03, patient refused blood work
Brugada syndrome
Follow-up with cardiology outpatient
COPD
Cont Bronchodilators with inhalers
Anxiety
Hold buspirone, continue low-dose Xanax as needed
BPH
TRAINER Flomax
Smoker
Nicotine patch
Severe Protein calorie Malnutrition
DVT prophylaxis: Lovenox 40 mg SQ daily
CODE STATUS: Full code
Anticipated Discharge: Today
Subjective/Interval History
-
Date of Service: July 05, 2024
No changes from yesterday, patient awaiting transportation to SNF
Objective Data
-
Vital Signs:
Vital Signs
Temp Pulse Resp BP Pulse Ox
97.5 F 70 18 101/65 97
07/04/24 23:20 07/04/24 23:20 07/04/24 23:20 07/04/24 23:20 07/04/24 23:20
I&O
07/04/24 07/05/24 07/06/24
06:59 06:59 06:59
Intake Total 240 / 240 840 / 840
Balance 240 / 240 840 / 840
Review of Systems
-
Unable to obtain full review of systems at this time due to: Dementia
History Source: Patient and Family
Constitutional: Denies Fever or Fatigue
Respiratory: Denies Cough or Trouble Breathing
Cardiac: Denies Chest Pain or Palpitations
Abdomen/GI: Denies Abdominal Pain
Neuro: Reports No Symptoms
Psych: Reports Other (Apparent Dementia, Partner helping with history)
Physical Exam
-
General: Well Developed, No Apparent Distress and Comfortable
Respiratory: Clear to Auscultation and Non Labored Respirations
Cardiac: Regular Rhythm and S1/S2
GI: Soft, Nontender and Nondistended
Skin: Warm and Dry
Neuro: Awake, Alert, Oriented and AO x 3
Psych: Apparent Dementia
Data Reviewed
-
Labs: Labs Reviewed by me, Discussed with Physician, Discussed with Patient and Discussed with Family
[2024-07-05 07:36] VITALS: BP 116/68
[2024-07-05] MEDS: ATIVAN 0.25 MG PO (07:45)
[2024-07-05] MEDS: SYMBICORT 80/4.5 MCG INHALER 2 PUFF INH (08:17)
[2024-07-05] MEDS: SPIRIVA RESPIMAT 2.5 MCG 2 PUFF INH (08:18)
--- NOTE | 2024-07-05 08:56 | W.DCSUMMARY ---
Discharge Summary
Discharge Data
Date of Admission: 06/25/24
Date of Discharge: 07/05/24
-
Pending Results: No
Hospital Course
Admission Diagnosis-
Acute metabolic encephalopathy likely due to hypoxia vs COVID encephalopathy
Conditions Prior to Admission-
COPD
anxiety
BPH
RUL non-small cell lung cancer (squamous carcinoma)
active smoker
Hospital Course-
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
infection and CAP. Patient was discharged back to his home of suspicion of undiagnosed dementia and belief that his condition would improve at home. Patient's condition worsened at home tho as he continued to be lethargic and was now unable to
follow direction. Patient was also found to be hypoxic with a pulse Ox of 80% by EMS most likely due to being too confused to keep his nasal cannula on. CT Chest was ordered in the ED which showed no evidence of pulmonary embolism. Patient's known
mass seemed to be stable and was recommended to follow up with Personal Insurance Advisor 3 months in out-patient basis. Patient was started on IV Ativan for agitation and CT head was repeated which showed no acute intracranial abnormality. Neuro was also
consulted and a lumbar puncture was done according to their request. Pro-calcitonin was ordered to determine the need to continue Abx from his prior admission. Patient's home anxiety medication Buspirone was held at this time. Neurologist
recommended starting IV abx Ceftriaxone, Remdesivir at this time. MRI of the brain was ordered at this time and patient continued to be on oxygen as needed.
Patient's abx were discontinued by ID. Patient was seen by Personal Insurance Advisor who advised to continue Albuterol QID with Spiriva (prn Albuterol for breakthrough symptoms), Symbicort/Spiriva, and to maintain SpO2 > 88-94%. Patient was started on Thiamine
therapy and LP showed no meningitis (meningoencephalitis panel was negative). Patient continued to be confused and incoherent during his stay, with his significant other at bedside. Patient had been on restraints during his stay until 06/29. Patient
underwent an MRI which showed no evidence of acute intracranial abnormality. Patient continued to be on supportive therapy and IV Ativan for his agitation. Patient was set for placement at SNF on 07/03 and his partner noted that patient's condition
had been much improving. Patient was started on a trial of Seroquel 12.5 BID PRN. Patient was unable to get into SNF on 07/03 and was continued to be monitored. Patient did not need Seroquel PRN for several days. Patient was discharged to SNF rehab
facility with instructions to follow up with Personal Insurance Advisor regarding his lung mass. Patient and his partner given instructions about his new medications and to not use his medications from prior to admission to manage his anxiety.
Patient's other conditions continued to be managed with his home medications.
Discharge Plan
-
Patient Disposition: Detention/SNF
Discharge Diagnosis/Procedures: Acute metabolic encephalopathy likely due to hypoxia vs COVID encephalopathy
Diet: Regular
Activity: As tolerated
Driving Restrictions: No driving
Bathing Restrictions: None
Activity Restrictions/Additional Instructions:
Follow up with Personal Insurance Advisor in 3 months as directed.
Follow up with Conflicts Analyst regarding Brugada syndrome.
Follow up with Neurologist in 1-2 weeks
Follow up with Psychiatrist
Referrals:
Joni Danielson MD [Active] - (Follow up with Dr. Brasher as planned)
UNKNOWN,NO INTERVIEW [Family Provider] -
Additional Discharge Medication Instructions: Continue taking Ativan 0.25mg twice a day, no longer take buspirone, alprazolam, hydroxyzine, Dexamethasone. Take Seroquel as needed.
Prescriptions:
New
lorazepam 0.5 mg Tablet
0.25 mg PO BID Qty: 6 0RF
budesonide-formoterol [Symbicort] 80-4.5 mcg/actuation Hfa Aerosol Inhaler
2 puff inhalation R BID 30 Days Qty: 10.2 2RF
tiotropium bromide 2.5 mcg/actuation mist
2 inh inhalation DAILY 30 Days Qty: 4 2RF
Continued
tamsulosin [Flomax] 0.4 mg Capsule
0.4 mg PO DAILY
mirabegron [Myrbetriq] 25 mg Tablet Extended Release 24 Hr
25 mg PO DAILY
Discontinued
buspirone [BuSpar] 15 mg Tablet
15 mg PO QID Qty: 0
Trelegy Ellipta 100-62.5-25 mcg Blister With Device
1 inh INHALATION R DAILY
levalbuterol HCl [Xopenex] 0.63 mg/3 mL Solution For Nebulization
0.63 mg INHALATION R TIDPRN PRN (Reason: sob)
hydroxyzine HCl 50 mg Tablet
50 mg PO BID
dexamethasone 1 mg Tablet
6 mg PO .[id number]
gabapentin 300 mg Capsule
300 mg PO 5/D
albuterol sulfate [ProAir HFA] 90 mcg/actuation Hfa Aerosol Inhaler
2 puff INHALATION R Q6HPRN PRN (Reason: sob)
alprazolam 0.25 MG tablet
1.5 mg PO BID
Discharge Orders:
Discharge Patient (As Directed); Ordered 07/04/24
Ordered By: Ginger Escalante
Discharge Date and Time
Print Language: BOLIVIAN
--- NOTE | 2024-07-05 09:45 | CM ---
Patient to be discharged today to [facility]
Transport via ambulance set up for 1212:30
Cristina liaison notified.
PLAN: Discharge today to [facility]
Transport via ambulance 12:30
Report #: [phone]
Fax #: [phone]
[2024-07-05] MEDS: SEROQUEL 12.5 MG PO (12:36)
== END 2024-07-05 13:18 | DRG 177 ==
LOC: 4 WEST ACU 19:35
PROVIDERS: Hospitalist; Radiology Vascular & Interventional Radiology; Student in an Organized Health Care Education/Training Program; ADMITTING PHYSICIAN Internal Medicine; CONSULT PHYSICIAN Internal Medicine Critical Care Medicine; CONSULT PHYSICIAN Internal Medicine Infectious Disease; CONSULT PHYSICIAN Psychiatry & Neurology Psychiatry; EMERGENCY PHYSICIAN Emergency Medicine; OTHER PHYSICIAN Psychiatry & Neurology Neurology
PROC: XW033E5 Introduction of Remdesivir Anti-infective into Peripheral Vein, Percutaneous Approach, New Technology Group 5 (ICD-10-PCS; 2024-06-25)
PROC: 009U3ZX Drainage of Spinal Canal, Percutaneous Approach, Diagnostic (ICD-10-PCS; 2024-06-26)
DX: U07.1 COVID-19 (principal); E43 Unspecified severe protein-calorie malnutrition; J96.21 Acute and chronic respiratory failure with hypoxia; G93.41 Metabolic encephalopathy; R64 Cachexia; Z68.1 Body mass index [BMI] 19.9 or less, adult; F03.94 Unspecified dementia, unspecified severity, with anxiety; F05 Delirium due to known physiological condition; F03.911 Unspecified dementia, unspecified severity, with agitation; F17.210 Nicotine dependence, cigarettes, uncomplicated; J44.89 Other specified chronic obstructive pulmonary disease; I49.8 Other specified cardiac arrhythmias; N40.0 Benign prostatic hyperplasia without lower urinary tract symptoms; L89.152 Pressure ulcer of sacral region, stage 2; E87.6 Hypokalemia; Z79.51 Long term (current) use of inhaled steroids; Z88.0 Allergy status to penicillin; Z28.310 Unvaccinated for COVID-19; Z99.81 Dependence on supplemental oxygen; Z92.3 Personal history of irradiation; Z87.01 Personal history of pneumonia (recurrent); Z86.16 Personal history of COVID-19; Z85.118 Personal history of other malignant neoplasm of bronchus and lung; Z79.899 Other long term (current) drug therapy
CPT/HCPCS: 62328; 70450; 70551; 71045; 71275; 80048; 80053; 81003; 82607; 82728; 82746; 82805; 83605; 83735; 84443; 85025; 85027; 85610; 85652; 86255; 86592; 86788; 87015; 87070; 87205; 87476; 87483; 87811; 89051; 92610; 93005; 94640; 96361; 96374; 97116; 97163; 97167; 97530; 97535; 99285; J0248; Q9967

== ENCOUNTER 2024-07-09 20:34 | Emergency (ER) | payer MEDICARE, SELFPAY ==
[2024-07-09 20:36] VITALS: BP 136/84; BMI 15.5
[2024-07-09 20:39] VITALS: BP 136/84
[2024-07-09 21:00] VITALS: BP 112/76
--- NOTE | 2024-07-09 21:30 | ED.GENMED ---
History of Present Illness
General
Chief Complaint: Change in Mental Status
Time Seen by Provider: 07/09/24 20:56
History of Present Illness
History of Present Illness:
Patient presents to the emergency department with agitation. Recent admission for altered mental status, discharged 4 days ago. He had a extensive workup for altered mental status and was ultimately diagnosed COVID encephalopathy versus hypoxic
encephalopathy from COVID. Family notes that his behavior has been rapidly worsening over the past month. His notes some history of agitation seems side at times. He was discharged to the left lower his family feels unable to care for him at
home and are hoping he can have psychiatric evaluation for possible placement to a psychiatric facility.
Past History
Past History
ED Past Medical History: Cancer, COPD (Home O2), Psychiatric (anxiety) and Other (Measles, mumps, chickenpox, scarlet fever, pneumonia, COVID-03 July 2024)
ED Past Surgical History: Other (Lung biopsy followed by pneumothorax 2017, cataract extraction)
Social History
Tobacco: Smoker
Drug: None
Personal: Other ( )
Family History
Family History: Other (Reviewed and noncontributory)
Phy Exam
Physical Exam
Physical Exam:
GENERAL APPEARANCE: gaunt and frail appearing
EYES lids/conjunctiva normal
EARS/NOSE/THROAT Mucous membranes moist, uvula midline without oral pharyngeal erythema, exudate or swelling
HEAD/NECK normocephalic atraumatic, neck is supple.
RESPIRATORY respiratory effort normal, speaks in full sentences, no accessory muscle use.
CARDIAC Regular rate and rhythm, no edema.
ABDOMINAL non distended
MUSCLES/EXTREMITIES No abnormal range of motion, no swelling.
SKIN Warm, pink and dry. No rashes
NEUROLOGICAL Speech is clear and inappropriate, confused. Not answering orientation questions. Normal level of consciousness. 5/5 strength in all extremities.
PSYCH suspicious appearing, agitated
Course
Orders/Labs/Results
Orders:
Orders
07/09/24 21:06
Electrocardiogram (*1) Urgent
Reason for Study: Other
Other Reason for Exam: medical clearance
Complete Blood Count/With Diff Urgent
Comprehensive Metabolic Panel Urgent
Pulse Ox/cont/shift [RESP] Stat
Quantity: 1
07/09/24 21:29
Lorazepam [Ativan] 1 mg IM NOW STA
07/09/24 21:54
Crisis Consult Routine
Reason for Consult: paranoia, agitation
Vital Signs
Initial and Last Documented VS:
Initial Vital Signs
Temp Pulse Resp BP Pulse Ox
98.2 F 85 20 136/84 99
07/09/24 20:36 07/09/24 20:36 07/09/24 20:36 07/09/24 20:36 07/09/24 20:36
Last Documented Vital Signs
Temp Pulse Resp BP Pulse Ox
98.2 F 85 20 136/84 99
07/09/24 20:36 07/09/24 20:36 07/09/24 20:36 07/09/24 20:36 07/09/24 20:36
*Critical Care Note
Total Time (30-74mins, 75-104mins- exclusive of procedures): Not Applicable
ED Attending Note
ED Attending Note
ED Attending Note:
Patient with recent admission as documented returns with worsening agitation and paranoia. Patient's family noted his good response to go he is not taking any of his p.o. meds at home and refusing everything. Will give a dose of IM Ativan, check
basic labs to medically clear with plan for likely psychiatric evaluation.
Patient signed out to oncoming physician Dr. Rodriguez pending crisis evaluation
-
Portions of this chart may have been created with voice recognition software.� Occasional wrong word or��sound alike� substitutions may have occurred due to the inherent limitations of voice recognition software.
Discharge Plan
Departure
Prescriptions:
No Action
tamsulosin [Flomax] 0.4 mg Capsule
0.4 mg PO DAILY
mirabegron [Myrbetriq] 25 mg Tablet Extended Release 24 Hr
25 mg PO DAILY
lorazepam 0.5 mg Tablet
0.25 mg PO BID Qty: 6 0RF
budesonide-formoterol [Symbicort] 80-4.5 mcg/actuation Hfa Aerosol Inhaler
2 puff inhalation R BID 30 Days Qty: 10.2 2RF
tiotropium bromide 2.5 mcg/actuation mist
2 inh inhalation DAILY 30 Days Qty: 4 2RF
Referrals:
Luiz Barrios MD [Family Provider] -
Interventions
Interventions:
*Risk Screen - Suicide Last Done: 07/09/24 20:36
*General Assessment Last Done: 07/09/24 20:36
*Neglect/Abuse Screening Last Done: 07/09/24 20:36
*ED COVID-19 Vaccine History Last Done: 07/09/24 20:36
Discharge Date and Time
Print Language: ZIMBABWEAN
[2024-07-09 22:00] VITALS: BP 122/108
[2024-07-09] MEDS: ATIVAN 1 MG IM (22:34)
[2024-07-09 23:00] VITALS: BP 113/89
[2024-07-10] VITALS (13 sets, daily range): BP systolic 90–127; BP diastolic 56–77
--- NOTE | 2024-07-10 10:12 | ED.GENMED ---
History of Present Illness
General
Chief Complaint: Change in Mental Status
Time Seen by Provider: 07/09/24 20:56
Past History
Past History
ED Past Medical History: Cancer, COPD (Home O2), Psychiatric (anxiety) and Other (Measles, mumps, chickenpox, scarlet fever, pneumonia, COVID-03 July 2024)
ED Past Surgical History: Other (Lung biopsy followed by pneumothorax 2018, cataract extraction)
Social History
Tobacco: Smoker
Drug: None
Personal: Other ( )
Family History
Family History: Other (Reviewed and noncontributory)
Course
Orders/Labs/Results
Orders:
Orders
07/09/24 21:06
Pulse Ox/cont/shift [RESP] Stat
Quantity: 1
07/09/24 21:29
Lorazepam [Ativan] 1 mg IM NOW STA
07/09/24 21:54
Crisis Consult Routine
Reason for Consult: paranoia, agitation
07/10/24 05:56
Consult Notification Routine
Specialty to Notify: Psychiatry
PSYCHIATRY CONSULT Urgent
Consulting Provider: Roz Clement
Was physician already notified: No
Reason for consult: 302 evaluation
07/09/24 21:06
07/09/24 21:06
Vital Signs
Initial and Last Documented VS:
Initial Vital Signs
Temp Pulse Resp BP Pulse Ox
98.2 F 85 20 136/84 99
07/09/24 20:36 07/09/24 20:36 07/09/24 20:36 07/09/24 20:36 07/09/24 20:36
Last Documented Vital Signs
Temp Pulse Resp BP Pulse Ox
98.2 F 76 18 93/63 99
07/09/24 20:36 07/10/24 07:28 07/10/24 07:28 07/10/24 07:28 07/10/24 04:30
Update Note
Update Note:
Pt does not require supplemental oxygen at this time and during acute treatment. It is only with any activities that require extensive exertion, that he requires supplemental oxygen.
ED Attending Note
-
Portions of this chart may have been created with voice recognition software.� Occasional wrong word or��sound alike� substitutions may have occurred due to the inherent limitations of voice recognition software.
Discharge Plan
Departure
Prescriptions:
No Action
tamsulosin [Flomax] 0.4 mg Capsule
0.4 mg PO DAILY
mirabegron [Myrbetriq] 25 mg Tablet Extended Release 24 Hr
25 mg PO DAILY
lorazepam 0.5 mg Tablet
0.25 mg PO BID Qty: 6 0RF
budesonide-formoterol [Symbicort] 80-4.5 mcg/actuation Hfa Aerosol Inhaler
2 puff inhalation R BID 30 Days Qty: 10.2 2RF
tiotropium bromide 2.5 mcg/actuation mist
2 inh inhalation DAILY 30 Days Qty: 4 2RF
Referrals:
Luiz Barrios MD [Family Provider] -
Interventions
Interventions:
*Risk Screen - Suicide Last Done: 07/09/24 20:36
*General Assessment Last Done: 07/09/24 20:36
*Neglect/Abuse Screening Last Done: 07/09/24 20:36
*ED COVID-19 Vaccine History Last Done: 07/09/24 20:36
ED- Pulmonary Assessment Last Done: 07/09/24 23:21
ED- Neurological Assessment Last Done: 07/09/24 23:21
ED- Cardiac Assessment Last Done: 07/09/24 23:21
Discharge Date and Time
Print Language: ALBANIAN
[2024-07-10 11:15] LABS: COVID-19 Antigen Negative (Negative)
--- NOTE | 2024-07-11 08:18 | ED.ADDNOTE ---
ED Addendum
ED Addendum
ED Addendum Note:
Pt does not require supplemental oxygen at this time and during acute treatment. It is only with any activities that require extensive exertion, that he requires supplemental oxygen.
== END 2024-07-10 14:25 ==
LOC: EMR 20:34
PROVIDERS: Emergency Medicine; CONSULT PHYSICIAN Psychiatry & Neurology Psychiatry; EMERGENCY PHYSICIAN Emergency Medicine; FAMILY PHYSICIAN Family Medicine
DX: R41.82 Altered mental status, unspecified (principal); J44.9 Chronic obstructive pulmonary disease, unspecified; F17.200 Nicotine dependence, unspecified, uncomplicated; F41.9 Anxiety disorder, unspecified; Z86.16 Personal history of COVID-19
CPT/HCPCS: 99285; 87811

== ENCOUNTER 2024-07-24 18:16 | Emergency (ER) | payer MEDICARE, SELFPAY ==
[2024-07-24 18:20] VITALS: BP 110/73
[2024-07-24 20:27] VITALS: BP 127/74
--- NOTE | 2024-07-24 21:49 | ED.GENMED ---
History of Present Illness
<Roselia Haywood MD, Resident - Last Filed: 07/28/24 15:18>
General
Chief Complaint: Bowel Problem
Source: patient and spouse
Exam Limitations: altered mental status
Time Seen by Provider: 07/24/24 21:08
Nursing documentation reviewed up to this point in time: agreed with
History of Present Illness
History of Present Illness:
71-year-old male with history of COPD, BPH, lung cancer, anxiety, history of Brugada on EKG, who was brought to the ED by his today for complaints of constipation. Patient appears confused, so most of the history is offered by his , Demetra.
She picked him up from [facility] this morning after a 2-week stay and he complained of abdominal discomfort, constipation with likely no bowel movements throughout the 2-week stay, and urinary retention. Per , pt had complained of
constipation during her visits to him, and he mentioned having to press on his lower abdomen to facilitate passing urine. She gave him one packet of Mirilax this afternoon and he has had no bowel movements since.
Of note, he was recently hospitalized for COVID with TME in June, and for altered mental status a week later. He was evaluated in the ED 2 weeks ago on 302 for agitation and Psych recommended Psych hospitalization. states that he is close to
baseline mental status but still appears confused.
He denies fever, but complains of chills while in ED. No N/V/D, dysuria, chest pain or palpitations.
Past History
<Roselia Haywood MD, Resident - Last Filed: 07/28/24 15:18>
Past History
ED Past Medical History: Cancer, COPD (Home O2), Psychiatric (anxiety) and Other (Measles, mumps, chickenpox, scarlet fever, pneumonia, COVID-03 July 2024)
ED Past Surgical History: Other (Lung biopsy followed by pneumothorax 2018, cataract extraction)
Social History
Tobacco: Smoker
Alcohol: None
Drug: None
Personal:
Living: with family
Family History
Family History: Other (Reviewed and noncontributory)
Review of Systems
<Roselia Haywood MD, Resident - Last Filed: 07/28/24 15:18>
Review of Systems
Allergies reviewed?: Yes
Unable to obtain full review of systems at this time due to: other (confusion)
Other source history: family
Constitutional: Reports chills; Denies fever
Cardiac: Denies chest pain, diaphoresis or palpitations
ABD/GI: Reports constipated; Denies abdominal pain, nausea, vomiting or diarrhea
: Reports other (retention); Denies dysuria
Phy Exam
<Roselia Haywood MD, Resident - Last Filed: 07/28/24 15:18>
General Physical Exam
General Presentation: well appearing and no apparent distress
General age: appears stated age
General Skin: warm and dry
General Mental: confused
General Hydration: dry mucous membranes
Cardiovascular Exam
Cardiovascular Exam: regular rate/rhythm, no edema and no murmur
Heart Sounds: normal
Pulmonary Exam
Pulmonary Exam: lungs clear, no respiratory distress, no rales, no crackles, no rhonchi, no wheezing and no cough
Oxygen Status: room air
Gastrointestinal Exam
Gastrointestinal Exam: normal bowel sounds, non tender, soft, non distended and no cva tenderness
Course
<Roselia Haywood MD, Resident - Last Filed: 07/28/24 15:18>
Orders/Labs/Results
Orders:
Orders
07/24/24 22:10
Bladder Scan- Treatment ONCE
07/24/24 22:37
CR Obstruct Series W/pa Chest Urgent
Comment:
Reason For Exam: constipation with pain
07/25/24 00:17
Phosphate Enema [Fleet Phosphate Enema-Adult] 135 ml RECTAL NOW STA
Vital Signs
Initial and Last Documented VS:
Initial Vital Signs
Pulse Resp BP Pulse Ox
81 18 110/73 96
07/24/24 18:20 07/24/24 18:20 07/24/24 18:20 07/24/24 18:20
Last Documented Vital Signs
Temp Pulse Resp BP Pulse Ox
98.5 F 92 18 119/75 97
07/25/24 02:29 07/24/24 20:27 07/24/24 18:20 07/25/24 02:21 07/25/24 02:21
<Kwadwo Bagley MD - Last Filed: 07/25/24 02:19>
Orders/Labs/Results
Orders:
Orders
07/24/24 22:10
Bladder Scan- Treatment ONCE
07/24/24 22:37
CR Obstruct Series W/pa Chest Urgent
Comment:
Reason For Exam: constipation with pain
07/25/24 00:17
Phosphate Enema [Fleet Phosphate Enema-Adult] 135 ml RECTAL NOW STA
Vital Signs
Initial and Last Documented VS:
Initial Vital Signs
Pulse Resp BP Pulse Ox
81 18 110/73 96
07/24/24 18:20 07/24/24 18:20 07/24/24 18:20 07/24/24 18:20
Last Documented Vital Signs
Temp Pulse Resp BP Pulse Ox
98.5 F 92 18 119/75 97
07/25/24 02:29 07/24/24 20:27 07/24/24 18:20 07/25/24 02:21 07/25/24 02:21
<Roselia Haywood MD, Resident - Last Filed: 07/28/24 15:18>
MDM/Problems Addressed
Differential Diagnosis Includes:
Constipation, UTI, acute urinary retention
MDM/Problems Addressed:
Pt appears well, in no acute distress. Appears confused on physical exam. Given history of difficulty voiding, will get bladder scan. Given history of constipation, will get abdominal series.
- Bladder scan with prevoid volume 237ml. Pt did not void for pre-void volume scan due to confusion. Abdominal series with no obvious obstructive stool, likely an ileus. Will give digital disimpaction to clear any hard stool in rectum. Will likely
give enema if needed. Will reassess symptoms of urinary retention following relief of constipation.
- Hard stool noted upon attempted digital disimpaction but patient was not able to tolerate. Will give Fleets enema.
<Roselia Haywood MD, Resident - Last Filed: 07/28/24 15:18>
*Critical Care Note
Total Time (30-74mins, 75-104mins- exclusive of procedures): Not Applicable
ED Attending Note
<Roselia Haywood MD, Resident - Last Filed: 07/28/24 15:18>
-
Portions of this chart may have been created with voice recognition software.� Occasional wrong word or��sound alike� substitutions may have occurred due to the inherent limitations of voice recognition software.
<Kwadwo Bagley MD - Last Filed: 07/25/24 02:19>
ED Attending Note
Patient seen and examined by attending physician: Yes
ED Attending Note:
Patient with history of recent COVID-19 with complications resulting in hospitalization, as well as inpatient psychiatric treatment due to agitation as a result of COVID-19, presents to ED secondary to lack of bowel movement despite urge over the
past 2 weeks. Denies abdominal pain. Denies fever or chills. Denies nausea or vomiting. Patient states that he has had episodes of constipation in the past, which had resolved with the use of laxatives. Patient has taken MiraLAX at home,
without improvement symptoms.
Physical Exam
General: no apparent distress, not acutely ill. afebrile
Head: nc/at. eomi
Neck: supple. normal range of motion.
Abdomen: normal bowel sounds. not tender.
Neuro: alert and oriented. no focal neurological deficits
Skin: no rash
Psychiatric: well kept. interactive and cooperative
Extremities: no edema. no calf tenderness.
X-ray: Suggestive of ileus, without any significant dilation.
Patient given Fleet enema with removal of large amount of stool, along with subjective improvement in symptoms.
Bladder scan result reviewed. Patient will be referred to urology for an outpatient consultation, as the symptoms may be related to underlying BPH versus complication of recent constipation. Patient otherwise is afebrile, hemodynamically stable,
and appears comfortable, at time of discharge, to the care of his spouse.
Discharge Plan
Departure
Patient Disposition: Home (Routine Discharge)
Date of Disposition: 07/25/24
Time of Disposition: 02:18
Patient with high blood pressure during this ER visit?: Yes
Discharge Problem:
Constipation, Benign prostatic hyperplasia
Instructions: Benign prostatic hyperplasia (enlarged prostate), Constipation, Adult (DC)
Prescriptions:
No Action
tamsulosin [Flomax] 0.4 mg Capsule
0.4 mg PO DAILY
mirabegron [Myrbetriq] 25 mg Tablet Extended Release 24 Hr
25 mg PO DAILY
lorazepam 0.5 mg Tablet
0.25 mg PO BID Qty: 6 0RF
budesonide-formoterol [Symbicort] 80-4.5 mcg/actuation Hfa Aerosol Inhaler
2 puff inhalation R BID 30 Days Qty: 10.2 2RF
tiotropium bromide 2.5 mcg/actuation mist
2 inh inhalation DAILY 30 Days Qty: 4 2RF
Referrals:
Luiz Barrios MD [Family Provider] -
Anthony Batres MD [Active] -
Activity Restrictions/Additional Instructions:
As discussed, please follow-up with your primary care physician and/or referred for further evaluation and treatment.
Interventions
Interventions:
*Risk Screen - Suicide Last Done: 07/24/24 22:35
*General Assessment Last Done: 07/24/24 22:14
*Neglect/Abuse Screening Last Done: 07/24/24 22:14
ED- Fall Risk Assessment Last Done: 07/25/24 02:32
*ED COVID-19 Vaccine History Last Done: 07/25/24 02:25
*Nursing Disposition Last Done: 07/25/24 02:52
VR-Ckbfkn-Qppeuylkjw Assessment Last Done: 07/24/24 22:14
Discharge Date and Time
Discharge Date/Time: 07/25/24 02:52
Print Language: BELARUSIAN
[2024-07-24 22:14] VITALS: BMI 16.9
[2024-07-25] MEDS: FLEET PHOSPHATE ENEMA-ADULT 135 ML RECTAL (00:29)
[2024-07-25 02:21] VITALS: BP 119/75
== END 2024-07-25 02:52 | disposition home or self-care (01) ==
LOC: EMR 18:16
PROVIDERS: EMERGENCY PHYSICIAN Emergency Medicine; FAMILY PHYSICIAN Family Medicine
DX: K59.00 Constipation, unspecified (principal); N40.1 Benign prostatic hyperplasia with lower urinary tract symptoms; J44.9 Chronic obstructive pulmonary disease, unspecified; F41.9 Anxiety disorder, unspecified; F17.200 Nicotine dependence, unspecified, uncomplicated; Z86.16 Personal history of COVID-19
CPT/HCPCS: 99283; 74022

== ENCOUNTER → 2024-10-09 12:03 | Outpatient (REF) | payer MEDICARE, SELFPAY ==
[2024-10-09 13:53] LABS: % Basophils 0.8 % (0-2); % Eosinophils 1.5 % (0-6); % Immature Granulocytes 0.2 % (0-0.5); % Lymphocytes 23.7 % (20.5-51.1); % Monocytes 14.5 % (1.7-9.3); % Neutrophils 59.3 % (42.2-75.2); Absolute Basophils 0.1 10^3/uL (0-0.2); Absolute Eosinophils 0.1 10^3/uL (0-0.7); Absolute Lymphocytes 1.4 10^3/uL (1.2-3.4); Absolute Monocytes 0.9 10^3/uL (0.1-0.6); Absolute Neutrophils 3.5 10^3/uL (1.4-6.5); Hematocrit 43.9 % (39.0-52.0); Hemoglobin 15.3 g/dL (13.0-18.0); Mean Corp Hgb Conc. 34.9 g/dL (33.0-37.0); Mean Corpuscular Hgb 32.3 pg (27.0-31.0); Mean Corpuscular Volume 92.8 fL (80.0-94.0); Mean Platelet Volume 10.4 fL (7.4-10.4); Nucleated Red Blood Cells % 0 % (-); Platelet Count 222 10^3/uL (130-400); Red Blood Cell Count 4.73 10^6/uL (4.70-6.10); Red Cell Dist. Width 12.5 % (11.5-14.5)
[2024-10-09 14:22] LABS: ALT (SGPT) 16 U/L (0-50); AST (SGOT) 25 U/L (17-59); Albumin 4.7 g/dl (3.5-5.0); Alkaline Phosphatase 67 U/L (38-126); Blood Urea Nitrogen 19 mg/dl (9-20); Calcium 9.9 mg/dl (8.4-10.2); Carbon Dioxide 27 mmol/L (22-30); Chloride 100 mmol/L (98-107); Glucose 97 mg/dl (70-99); Potassium 4.7 mmol/L (3.5-5.1); Sodium 139 mmol/L (135-145); Total Bilirubin 0.4 mg/dl (0.2-1.3); Total Protein 7.2 g/dl (6.3-8.2); eGFR > 60.00
== END ==
LOC: REG 12:03
PROVIDERS: ATTENDING PHYSICIAN Internal Medicine Hematology & Oncology; PRIMARYCARE PHYSICIAN Family Medicine
DX: C34.11 Malignant neoplasm of upper lobe, right bronchus or lung (principal); J38.7 Other diseases of larynx
CPT/HCPCS: 36415; 80053; 85025

== ENCOUNTER → 2024-10-16 14:32 | Outpatient (REF) | payer MEDICARE, SELFPAY | LOC: RAD 14:32 | PROVIDERS: ATTENDING PHYSICIAN Internal Medicine Hematology & Oncology; FAMILY PHYSICIAN Family Medicine | DX: C34.11 Malignant neoplasm of upper lobe, right bronchus or lung (principal); J38.7 Other diseases of larynx | CPT/HCPCS: 71260; Q9967 ==

== ENCOUNTER 2025-01-06 17:27 | Emergency (ER) | payer MEDICARE, SELFPAY ==
[2025-01-06 17:31] VITALS: BP 112/74
[2025-01-06 18:34] VITALS: BP 128/82
[2025-01-06 18:45] LABS: % Basophils 0.8 % (0-2); % Eosinophils 2.4 % (0-6); % Immature Granulocytes 0.2 % (0-0.5); % Lymphocytes 20.8 % (20.5-51.1); % Monocytes 14.3 % (1.7-9.3); % Neutrophils 61.5 % (42.2-75.2); Absolute Basophils 0.1 10^3/uL (0-0.2); Absolute Eosinophils 0.2 10^3/uL (0-0.7); Absolute Lymphocytes 1.3 10^3/uL (1.2-3.4); Absolute Monocytes 0.9 10^3/uL (0.1-0.6); Absolute Neutrophils 3.9 10^3/uL (1.4-6.5); Hematocrit 38.2 % (39.0-52.0); Hemoglobin 13.5 g/dL (13.0-18.0); Mean Corp Hgb Conc. 35.3 g/dL (33.0-37.0); Mean Corpuscular Hgb 31.4 pg (27.0-31.0); Mean Corpuscular Volume 88.8 fL (80.0-94.0); Mean Platelet Volume 9.3 fL (7.4-10.4); Nucleated Red Blood Cells % 0 % (-); Platelet Count 193 10^3/uL (130-400); White Blood Cell Count 6.4 10^3/uL (4.8-10.8)
[2025-01-06 19:01] LABS: ALT (SGPT) 17 U/L (0-50); AST (SGOT) 20 U/L (17-59); Albumin 4.4 g/dl (3.5-5.0); Alkaline Phosphatase 62 U/L (38-126); Blood Urea Nitrogen 13 mg/dl (9-20); Calcium 9.2 mg/dl (8.4-10.2); Carbon Dioxide 26 mmol/L (22-30); Chloride 96 mmol/L (98-107); Glucose 96 mg/dl (70-99); Potassium 4.1 mmol/L (3.5-5.1); Sodium 129 mmol/L (135-145); Total Protein 6.5 g/dl (6.3-8.2); eGFR > 60.00
--- NOTE | 2025-01-06 19:40 | ED.GENMED ---
History of Present Illness
General
Chief Complaint: Male Genito-Urinary Symptoms
Time Seen by Provider: 01/06/25 18:15
History of Present Illness
History of Present Illness:
74-year-old male presents the emergency department for evaluation of inability to void urine for the majority of the night. He has had several weeks of urinary dribbling and suprapubic pressure, has not been able to urinate for several hours. Does
currently take Flomax as well as mirabegron.
Past History
Past History
ED Past Medical History: Cancer, COPD (Home O2), Psychiatric (anxiety) and Other (Measles, mumps, chickenpox, scarlet fever, pneumonia, COVID-03 July 2024)
ED Past Surgical History: Other (Lung biopsy followed by pneumothorax 2018, cataract extraction)
Social History
Tobacco: Smoker
Alcohol: None
Drug: None
Personal:
Living: with family
Family History
Family History: Other (Reviewed and noncontributory)
Review of Systems
Review of Systems
Allergies reviewed?: Yes
All Other Systems: ROS reviewed and negative except as documented in HPI and ROS
Phy Exam
Physical Exam
Physical Exam:
GEN: Well appearing, NAD, WDWN
HEENT: Oral mucosa moist, no scleral icterus
Cardiac: Regular rate
Lung: No respiratory distress, no tachypnea
Abdomen: Mild suprapubic distention with tenderness
MSK: No gross deformity or injuries
Skin: Good color, no pallor or jaundice, no rashes
Neuro: AO x3, moves all extremities freely
Psych: Calm, cooperative
Course
Orders/Labs/Results
Orders:
Orders
01/06/25 18:28
Palm Placement- Treatment ONCE
Reason for insertion: Acute Retention
01/06/25 18:32
Complete Blood Count/With Diff Urgent
Comprehensive Metabolic Panel Urgent
01/06/25 19:44
Urinalysis Reflex To Culture Urgent
Date Specimen was Collected: 01/06/25
Time Specimen was Collected: 19:43
Abnormal Lab Results
01/06/25
18:32
RBC 4.30 L 10^6/uL
(4.70-6.10)
Hct 38.2 L %
(39.0-52.0)
MCH 31.4 H pg
(27.0-31.0)
Absolute Monos (auto) 0.9 H 10^3/uL
(0.1-0.6)
Monocytes % 14.3 H %
(1.7-9.3)
Sodium 129 L mmol/L
(135-145)
Chloride 96 L mmol/L
(98-107)
01/06/25 18:32
01/06/25 18:32
Vital Signs
Initial and Last Documented VS:
Initial Vital Signs
Temp Pulse Resp BP Pulse Ox
98 F 82 16 112/74 98
01/06/25 17:31 01/06/25 17:31 01/06/25 17:31 01/06/25 17:31 01/06/25 17:31
Last Documented Vital Signs
Temp Pulse Resp BP Pulse Ox
98 F 82 16 128/82 99
01/06/25 17:31 01/06/25 17:31 01/06/25 17:31 01/06/25 18:34 01/06/25 18:35
MDM/Problems Addressed
MDM/Problems Addressed:
Palm catheter inserted with over 300 mL of urine, the patient had persistent urinary urgency after this and the Palm was reassessed, flushes well with good output of urine. Will maintain Palm until outpatient urology follow-up given that he is
maximized on urinary muscle relaxants. Will treat with antibiotics prophylactically
*Critical Care Note
Total Time (30-74mins, 75-104mins- exclusive of procedures): Not Applicable
ED Attending Note
-
Portions of this chart may have been created with voice recognition software.� Occasional wrong word or��sound alike� substitutions may have occurred due to the inherent limitations of voice recognition software.
Discharge Plan
Departure
Patient Disposition: Home (Routine Discharge)
Date of Disposition: 01/06/25
Time of Disposition: 19:42
Patient with high blood pressure during this ER visit?: No
Discharge Problem:
Acute urinary retention
Instructions: Urinary Retention (DC)
Prescriptions:
New
cephalexin 500 mg capsule
500 mg PO TID 7 Days Qty: 21 0RF
No Action
tamsulosin [Flomax] 0.4 mg Capsule
0.4 mg PO DAILY
mirabegron [Myrbetriq] 25 mg Tablet Extended Release 24 Hr
25 mg PO DAILY
lorazepam 0.5 mg Tablet
0.25 mg PO BID Qty: 6 0RF
budesonide-formoterol [Symbicort] 80-4.5 mcg/actuation Hfa Aerosol Inhaler
2 puff inhalation R BID 30 Days Qty: 10.2 2RF
tiotropium bromide 2.5 mcg/actuation mist
2 inh inhalation DAILY 30 Days Qty: 4 2RF
Referrals:
Luiz Barrios MD [Family Provider] -
Jagdeep Pichardo Jr., MD [Active] -
Interventions
Interventions:
*Risk Screen - Suicide Last Done: 01/06/25 17:31
*General Assessment Last Done: 01/06/25 18:33
*Neglect/Abuse Screening Last Done: 01/06/25 17:31
*ED COVID-19 Vaccine History Last Done: 01/06/25 18:33
*Nursing Disposition Last Done: 01/06/25 20:10
ED-Male Genitourinary Assessment Last Done: 01/06/25 18:45
Discharge Date and Time
Discharge Date/Time: 01/06/25 20:12
Print Language: JAPANESE
[2025-01-06 19:55] LABS: Urine Albumin Negative (Neg - Trace); Urine Bilirubin Negative (Negative); Urine Character Clear (Clear); Urine Color Yellow; Urine Glucose Negative (Negative); Urine Ketone Negative (Negative); Urine Leukocyte Negative (Negative); Urine Nitrite Negative (Negative); Urine Occult Blood Negative (Negative); Urine Specific Gravity 1.005 (<1.030); Urine Urobilinogen Negative (Neg - 1+)
== END 2025-01-06 20:12 | disposition home or self-care (01) ==
LOC: EMR 17:27
PROVIDERS: Physician Assistant; EMERGENCY PHYSICIAN Emergency Medicine; FAMILY PHYSICIAN Family Medicine
DX: R33.9 Retention of urine, unspecified (principal); J44.9 Chronic obstructive pulmonary disease, unspecified; F41.9 Anxiety disorder, unspecified; F17.200 Nicotine dependence, unspecified, uncomplicated; Z86.16 Personal history of COVID-19
CPT/HCPCS: 99283; 80053; 81003; 85025

== ENCOUNTER → 2025-04-17 14:05 | Outpatient (REF) | payer MEDICARE, SELFPAY | LOC: RAD 14:05 | PROVIDERS: ATTENDING PHYSICIAN Physician Assistant | DX: J22 Unspecified acute lower respiratory infection (principal) | CPT/HCPCS: 71046 ==

== ENCOUNTER 2025-07-20 19:17 | Emergency (ER) | payer MEDICARE, SELFPAY ==
[2025-07-20 19:20] VITALS: BP 119/62
[2025-07-20 19:37] VITALS: BP 118/68
--- NOTE | 2025-07-20 19:40 | ED.GENMED ---
History of Present Illness
<Gareth Patiño PA-C - Last Filed: 07/20/25 23:52>
General
Chief Complaint: Bowel Problem
Source: patient
Time Seen by Provider: 07/20/25 19:29
History of Present Illness
History of Present Illness:
74-year-old male with past medical history of COPD, previous lung cancer, CHF presenting to the emergency department for evaluation of constipation noting he has not had a bowel movement in multiple days, now has diffuse and generalized abdominal
pain/distention, had an episode of vomiting on Wednesday now also noting he feels short of breath due to the distention within his abdomen. Patient usually requires 4 L via nasal cannula, on arrival here was noted to be around 89% on the 4 L so was
increased to 5 L. He is denying any chest pain, palpitations, diaphoresis. He notes that he usually does have exertional dyspnea which is not any today. He states that last year he had a similar episode the patient, had a fecal impaction at that
time which resolved with medications and enemas. He did an enema at home today but without any relief.
Past History
<Gareth Patiño PA-C - Last Filed: 07/20/25 23:52>
Past History
ED Past Medical History: Cancer, CHF, COPD (Home O2), Psychiatric (anxiety) and Other (Measles, mumps, chickenpox, scarlet fever, pneumonia, COVID-03 July 2024)
ED Past Surgical History: Other (Lung biopsy followed by pneumothorax 2018, cataract extraction)
Social History
Tobacco: Smoker
Alcohol: None
Drug: None
Personal: Partner
Living: with family
Family History
Family History: Other (Reviewed and noncontributory)
Review of Systems
<Gareth Patiño PA-C - Last Filed: 07/20/25 23:52>
Review of Systems
All Other Systems: ROS reviewed and negative except as documented in HPI and ROS
Phy Exam
<Gareth Patiño PA-C - Last Filed: 07/20/25 23:52>
Physical Exam
Physical Exam:
GENERAL: Alert , appears older than stated age, thin
EYE: clear conjunctiva b/l
HEAD: NCAT
ENT: o/p clr, mmm.
CARDIAC: Regular rate and rhythm .
LUNGS: Diminished lung sounds throughout, no wheezing, rales or rhonchi, increased respiratory rate but no accessory muscle use
ABDOMEN: Somewhat firm and slightly distended, generally tender but more so in the periumbilical region, hypoactive bowel sounds
RECTAL EXAM: No stool within the rectum
NEUROLOGICAL: Alert and oriented
SKIN: Warm and dry, skin intact.
MUSCULOSKELETAL: well perfused.
PSYCH: Normal and appropriate interaction.
Scores
<Gareth Patiño PA-C - Last Filed: 07/20/25 23:52>
Heart Failure Risk
Heart Failure Risk Score: Not Applicable
Heart Score for Chest Pain Patients
STEMI patient?: Not applicable
Withdrawal Assessment of Alcohol
Withdrawal Assessment Completed?: Not applicable
Course
<Gareth Patiño PA-C - Last Filed: 07/20/25 23:52>
Orders/Labs/Results
Orders:
Orders
07/20/25 19:39
Morphine Sulfate 4 mg IV NOW STA
CR Obstruct Series W/pa Chest Urgent
Comment:
Reason For Exam: constipation, SOB, vomiting
07/20/25 19:40
Complete Blood Count/With Diff Urgent
Comprehensive Metabolic Panel Urgent
Lipase Urgent
07/20/25 20:50
CT Abd/pelvis W Iv Cont Urgent
Comment:
Reason For Exam: abdominal pain, constipation, vomiting,
07/20/25 21:00
HYDROmorphone [Dilaudid] 0.5 mg IV NOW STA
07/20/25 21:09
Urinalysis Reflex To Culture Urgent
Date Specimen was Collected: 07/20/25
Time Specimen was Collected: 21:08
Urine Microscopic Reflex Cult Urgent
Urine Sodium Urgent
Date Specimen was Collected: 07/20/25
Time Specimen was Collected: 21:08
Comment: ADD ON
07/20/25 23:31
PRN Pain Medication Management As Directed
May give lesser potent ordered pain med per pt: Yes
preference::
Protocol:: Medication orders for pain may be administered in a
manner that supports deferring to patient preference
when the pt is:
- Requesting an ordered lesser potent pain medication.
Least to most potent pain medications are defined
as: acetaminophen < NSAID < tramadol < opioids
(morphine, oxycodone, hydromorphone).
- Requesting a lesser dose of the same medication IF
ORDERED.
- Requesting a less intrusive route of administration
if both routes are prescribed by the provider (PO <
IV).
07/20/25 23:32
Code Status As Directed
Resuscitation Status: Full Code
07/20/25 23:49
Bladder Scan As Directed
Follow Bladder Retention/Intermittent Cath Algorithm?: No
Frequency: Other
Comment: Please bladder scan now
07/20/25 23:53
Add On- LAB Urgent
Tests Added?: urine sodium, urine osmo
Abnormal Lab Results
07/20/25 07/20/25
19:40 21:09
RBC 3.76 L 10^6/uL
(4.70-6.10)
Hgb 12.1 L g/dL
(13.0-18.0)
Hct 34.2 L %
(39.0-52.0)
MCH 32.2 H pg
(27.0-31.0)
Absolute Monos (auto) 1.0 H 10^3/uL
(0.1-0.6)
Lymphocytes % 18.9 L %
(20.5-51.1)
Monocytes % 13.7 H %
(1.7-9.3)
Sodium 129 L mmol/L
(135-145)
Chloride 96 L mmol/L
(98-107)
BUN 7 L mg/dl
(9-20)
Creatinine 0.6 L mg/dL
(0.7-1.3)
Urine Bacteria (Reflex) Few A
(Negative)
Urine Sodium 11 L mmol/L
(30-90)
Urine Albumin (Reflex) 1+ A
(Neg - Trace)
07/20/25 19:40
07/20/25 19:40
Vital Signs
Initial and Last Documented VS:
Initial Vital Signs
Temp Pulse Resp BP Pulse Ox
97.4 F 74 24 119/62 90
07/20/25 19:20 07/20/25 19:20 07/20/25 19:20 07/20/25 19:20 07/20/25 19:20
Last Documented Vital Signs
Temp Pulse Resp BP Pulse Ox
97.4 F 67 18 107/69 97
07/20/25 19:20 07/21/25 00:30 07/21/25 00:30 07/20/25 23:00 07/20/25 23:33
<Verónica Correa, DO - Last Filed: 07/21/25 01:07>
Orders/Labs/Results
Orders:
Orders
07/20/25 19:39
Morphine Sulfate 4 mg IV NOW STA
CR Obstruct Series W/pa Chest Urgent
Comment:
Reason For Exam: constipation, SOB, vomiting
07/20/25 19:40
Complete Blood Count/With Diff Urgent
Comprehensive Metabolic Panel Urgent
Lipase Urgent
07/20/25 20:50
CT Abd/pelvis W Iv Cont Urgent
Comment:
Reason For Exam: abdominal pain, constipation, vomiting,
07/20/25 21:00
HYDROmorphone [Dilaudid] 0.5 mg IV NOW STA
07/20/25 21:09
Urinalysis Reflex To Culture Urgent
Date Specimen was Collected: 07/20/25
Time Specimen was Collected: 21:08
Urine Microscopic Reflex Cult Urgent
Urine Sodium Urgent
Date Specimen was Collected: 07/20/25
Time Specimen was Collected: 21:08
Comment: ADD ON
07/20/25 23:31
PRN Pain Medication Management As Directed
May give lesser potent ordered pain med per pt: Yes
preference::
Protocol:: Medication orders for pain may be administered in a
manner that supports deferring to patient preference
when the pt is:
- Requesting an ordered lesser potent pain medication.
Least to most potent pain medications are defined
as: acetaminophen < NSAID < tramadol < opioids
(morphine, oxycodone, hydromorphone).
- Requesting a lesser dose of the same medication IF
ORDERED.
- Requesting a less intrusive route of administration
if both routes are prescribed by the provider (PO <
IV).
07/20/25 23:32
Code Status As Directed
Resuscitation Status: Full Code
07/20/25 23:49
Bladder Scan As Directed
Follow Bladder Retention/Intermittent Cath Algorithm?: No
Frequency: Other
Comment: Please bladder scan now
07/20/25 23:53
Add On- LAB Urgent
Tests Added?: urine sodium, urine osmo
Abnormal Lab Results
07/20/25 07/20/25
19:40 21:09
RBC 3.76 L 10^6/uL
(4.70-6.10)
Hgb 12.1 L g/dL
(13.0-18.0)
Hct 34.2 L %
(39.0-52.0)
MCH 32.2 H pg
(27.0-31.0)
Absolute Monos (auto) 1.0 H 10^3/uL
(0.1-0.6)
Lymphocytes % 18.9 L %
(20.5-51.1)
Monocytes % 13.7 H %
(1.7-9.3)
Sodium 129 L mmol/L
(135-145)
Chloride 96 L mmol/L
(98-107)
BUN 7 L mg/dl
(9-20)
Creatinine 0.6 L mg/dL
(0.7-1.3)
Urine Bacteria (Reflex) Few A
(Negative)
Urine Sodium 11 L mmol/L
(30-90)
Urine Albumin (Reflex) 1+ A
(Neg - Trace)
07/20/25 19:40
07/20/25 19:40
Vital Signs
Initial and Last Documented VS:
Initial Vital Signs
Temp Pulse Resp BP Pulse Ox
97.4 F 74 24 119/62 90
07/20/25 19:20 07/20/25 19:20 07/20/25 19:20 07/20/25 19:20 07/20/25 19:20
Last Documented Vital Signs
Temp Pulse Resp BP Pulse Ox
97.4 F 67 18 107/69 97
07/20/25 19:20 07/21/25 00:30 07/21/25 00:30 07/20/25 23:00 07/20/25 23:33
<Gareth Patiño PA-C - Last Filed: 07/20/25 23:52>
MDM/Problems Addressed
Differential Diagnosis Includes:
Functional constipation
Bowel obstruction
Malignancy
Fecal impaction
Medication interaction
Shortness of breath secondary to abdominal distention and diaphragm elevation
MDM/Problems Addressed:
74-year-old male presenting to the ER for evaluation of constipation for the last few days, unable to have bowel movement despite using enema at home. Patient notes he now feels short of breath due to the pain and distention within his abdomen.
Baseline is on 4 L, here requiring 5 L. Rectal exam performed which did not show any stool within the rectal vault. There is no surrounding hemorrhoids or rectal fissures. Will obtain obstructive series which will help evaluate lung as well as if
there is any potential sign for obstruction. Morphine for pain control. Would like to avoid anti-inflammatories until renal function is known, patient appears quite uncomfortable and did not feel Tylenol would be sufficient.
<Gareth Patiño PA-C - Last Filed: 07/20/25 23:52>
*Pulse Oximetry
SaO2: 90
Nasal Cannula flow liters per minute: 99
Oxygen Mode of Delivery: Room air
Patient hypoxic: no
*Critical Care Note
Total Time (30-74mins, 75-104mins- exclusive of procedures): Not Applicable
<Gareth Patiño PA-C - Last Filed: 07/20/25 23:52>
Patient Management
Discussion with other providers: Hospitalist and Clinical Care Coordinator
Escalation/DeEscalation of care consider admission/obs:
CT noted for suspected ileus. Given patient's presentation and continued pain we will plan for admission. Notified general surgery team who will see the patient in consult. Hospitalist team accepts for continued treatment.
ED Attending Note
<Gareth Patiño PA-C - Last Filed: 07/20/25 23:52>
-
Portions of this chart may have been created with voice recognition software.� Occasional wrong word or��sound alike� substitutions may have occurred due to the inherent limitations of voice recognition software.
<Verónica Correa, DO - Last Filed: 07/21/25 01:07>
ED Attending Note
Patient seen and examined by attending physician: Yes
I performed the substantive portion of visit, reviewed & personally made and approve the management plan that is documented in note by myself or SOLIS.: Yes
I performed a history and physical exam of patient and discussed management with resident, I reviewed resident's note and agree with documented findings and plan of care.: Yes
ED Attending Note:
74-year-old male with history of COPD on chronic O2 presenting to the emergency department for abdominal discomfort. Patient notes that he has not had a bowel movement for 3 days and feels distended. Reports similar symptoms in the past, required
fecal disimpaction. Notes an episode of vomiting few days ago. Has overall had decreased p.o. intake. Vital signs normal.
Patient initially seen by physician trust operations assistant with concern for functional constipation versus bowel obstruction versus ileus. On initial examination, noted to be distended with some generalized discomfort so labs and CT obtained. CT without any
evidence of obstruction, air within the bowel concerning for possible ileus. Initial plan for admission for bowel regimen and monitoring. However, brought to my attention by nursing staff that patient now wants to leave the hospital.
01:00 - Patient subsequently seen and evaluated by me. Notes that he is passing gas, pain has improved and he does not want to stay in the hospital. CT images reviewed, no evidence of obstruction or severe ileus. On abdominal exam, soft and
nondistended, audible bowel sounds, mild tenderness to lower abdomen. Feel reasonable for discharge with supportive therapy at home including bowel regiment, stool softeners/enema. However communicated with patient and family at bedside, any
worsening of pain, inability to pass stool or gas, vomiting the patient immediately needs to return to the hospital. Patient verbalized understanding.
Discharge Plan
Departure
Patient Disposition: Home (Routine Discharge)
Date of Disposition: 07/21/25
Time of Disposition: 01:04
Patient with high blood pressure during this ER visit?: No
Condition: Good
Discharge Problem:
Ileus, Constipation
Interventions
Interventions:
*Risk Screen - Suicide Last Done: 07/20/25 19:20
*General Assessment Last Done: 07/20/25 19:20
*Neglect/Abuse Screening Last Done: 07/20/25 22:48
*ED- Fall Risk Assessment Last Done: 07/20/25 19:20
*ED COVID-19 Vaccine History Last Done: 07/20/25 19:20
TV-Syzkdz-Skbdxcmxqx Assessment Last Done: 07/20/25 23:20
[2025-07-20] MEDS: MORPHINE SULFATE 4 MG IV (19:43)
[2025-07-20 19:50] LABS: Hematocrit 34.2 % (39.0-52.0); Hemoglobin 12.1 g/dL (13.0-18.0); Mean Corp Hgb Conc. 35.4 g/dL (33.0-37.0); Mean Corpuscular Volume 91.0 fL (80.0-94.0); Nucleated Red Blood Cells % 0 % (-); Platelet Count 207 10^3/uL (130-400); Red Cell Dist. Width 12.3 % (11.5-14.5)
[2025-07-20 20:00] VITALS: BP 108/64
[2025-07-20 20:01] LABS: ALT (SGPT) 17 U/L (0-50); AST (SGOT) 24 U/L (17-59); Albumin 4.6 g/dl (3.5-5.0); Alkaline Phosphatase 61 U/L (38-126); Blood Urea Nitrogen 7 mg/dl (9-20); Calcium 9.4 mg/dl (8.4-10.2); Carbon Dioxide 27 mmol/L (22-30); Chloride 96 mmol/L (98-107); Glucose 88 mg/dl (70-99); Lipase 143 U/L (23-300); Potassium 4.1 mmol/L (3.5-5.1); Sodium 129 mmol/L (135-145); Total Protein 7.0 g/dl (6.3-8.2); eGFR > 60.00
[2025-07-20] MEDS: DILAUDID 0.5 MG IV (21:03)
[2025-07-20 21:09] VITALS: BP 115/65
[2025-07-20 21:25] LABS: Urine Character Clear (Clear)
[2025-07-20 21:56] LABS: Urine Red Blood Cell 0-2 /HPF (0-2); Urine Squamous Cell 0-2 /LPF (Few); Urine White Cell 0-2 /HPF (0-5)
[2025-07-20 23:00] VITALS: BP 107/69
--- NOTE | 2025-07-20 23:44 | HPS.HSE ---
Addendum entered and electronically signed by Jeff Salinas DO 07/21/25 00:33:
Patient seen and examined independently. Agree with findings and plan as set forth by Annemarie Aguilar PA-C.
Patient is a 74y M with PMH significant for lung cancer s/p XRT, COPD on chronic home O2 and BPH who presents to ED complaining of constipation. Patient reports some crampy lower abdominal discomfort. He is mostly concerned as he has not had a
BM in the past 3-5 days. He admits that he eats very little. He does drink fluids. He denies any N/V. No fevers / chills. He has some slow stream / difficulty initiating urination.
Evaluation in the ED included CT scan which showed mild distention of small and large intestine and mild distention of the bladder. No obstruction appreciated. Incidental note was made of 1.2cm calcified mass at the base of the appendix.
Ass:
Abdominal Distention
'Constipation'
Calcified Cecal Mass
Mild Hyponatremia
COPD without Acute Exacerbation
Chronic Hypoxemic Respiratory Failure
ASCVD
BPH
History of Lung Cancer
Plan:
Observe overnight for further evaluation and treatment.
Abdomen is soft with normal bowel sounds on exam - not consistent with ileus.
No obstruction seen on CT. Also, no significant stool burden appreciated on CT or rectal exam.
Will initiate bowel regimen, though the primary issue here seems to be decreased PO intake.
Encouraged increased solute / solid food intake.
Surgery consulted by ED - will likely require serial imaging / outpatient follow-up from cecal mass lesion.
Fluid restrict and follow for changes in Na level (unchanged from December 2024).
Hyponatremia also likely due to poor solute intake / 'tea and toast' diet.
Continue BPH meds. Bladder scan and straight cath if needed.
Urinary retention may also be contributing to sense of abdominal distention.
Original Note:
Family Physician
-
Family Physician: LINDEN Li
Chief Complaint
-
Abdominal Pain
History of Present Illness
Patient is a 74 y/o male past medical history of COPD on home oxygen, Lung Cancer, and Anxiety who presents with abdominal pain. Patient reports generalized abdominal pain though notes it seems to be worse in the lower bladder region. He reports
increased abdominal distention and no bowel movement for several days, as well as one of episode of vomiting earlier this week. Patient he drinks a lot of water but family at bedside reports he does not eat very much. There are no reports of fevers,
sweats or chills.
Medical History
Past Medical History
Past Medical History: Reports Other
Additional Past Medical History:
Chronic Hypoxic Respiratory Failure
COPD
Lung Cancer s/p Radiation
Generalized Anxiety Disorder
BPH
Past Surgical History: Reports None
Social History
Tobacco: Former Smoker
Alcohol: Former
Family History
Family History: Not pertinent
Allergies / Home Medications
Allergies reflects when Allergies were last updated in [employer].
Home Medications with original date entered in [employer]
Allergy/Medication List:
Allergies
Allergy/AdvReac Type Severity Reaction Status Date / Time
Penicillins Allergy Mild Unknown/tolerated Verified 07/20/25 19:19
ceftriaxone
Home Medications
tamsulosin 0.4 mg capsule (Flomax) 0.4 mg PO BID Urinary Issue 06/25/24
albuterol sulfate 90 mcg/actuation aerosol inhaler 2 puff inhalation Q4HPRN PRN shortness of breath 07/20/25
alprazolam 0.5 mg tablet 0.5 mg PO 5/D 07/20/25
azelastine 137 mcg (0.1 %) nasal spray 2 spray intranasal DAILY 07/20/25
azithromycin 250 mg tablet 250 mg PO MOWEFR 07/20/25
buspirone 15 mg tablet 15 mg PO QID 07/20/25
fluoxetine 20 mg capsule 20 mg PO DAILY 07/20/25
fluticasone fur. 100 mcg-umeclid 62.5 mcg-vilant 25 mcg inhalat.powder (Trelegy Ellipta) 1 inh inhalation DAILY 07/20/25
gabapentin 300 mg capsule 300 mg PO 5/D 07/20/25
levalbuterol HCl 0.63 mg/3 mL solution for nebulization 0.63 mg inhalation Q8HPRN PRN shortness of breath 07/20/25
prednisone 10 mg tablet 10 mg PO PRN PRN COPD 07/20/25
umeclidinium 62.5 mcg-vilanterol 25 mcg/actuation powdr for inhalation (Anoro Ellipta) 1 inh inhalation DAILY 07/20/25
Review of Systems
-
A 12 point ROS was completed and negative except as noted: Yes
Constitutional: Denies Fever or Chills
Respiratory: Denies Cough or Trouble Breathing
Cardiac: Denies Chest Pain or Palpitations
Abdomen/GI: Reports See HPI
Physical Exam
Vital Signs
Vital Signs
Temp Pulse Resp BP Pulse Ox
97.4 F 59 16 107/69 97
07/20/25 19:20 07/20/25 23:15 07/20/25 23:15 07/20/25 23:00 07/20/25 23:33
Physical Exam
General: Comfortable and Conversant (Speaks in full sentences )
HEENT: Anicteric, Moist mucous membranes and Oxygen (Nasal Cannula)
Respiratory: Clear and Non Labored Respirations
Cardiac: S1/S2 and Regular Rhythm
GI: Soft, Non Distended and Other (Hyperactive bowel sounds; Mild tenderness in suprapubic region with slightly palpable bladder)
Rectal: Deferred by Provider
Genito-urinary: Clear Urine (Urinal at bedside)
Musculoskeletal: No Clubbing, No Cyanosis and No Edema
Skin: Warm and Dry
Neuro: Awake, Alert, Oriented and Nonfocal/grossly intact
Psych: Calm
Laboratory Results
-
07/20/25 19:40
07/20/25 19:40
Laboratory Results
Total Bilirubin 0.5 mg/dl (0.2-1.3) 07/20/25 19:40
AST 24 U/L (17-59) 07/20/25 19:40
ALT 17 U/L (0-50) 07/20/25 19:40
Alkaline Phosphatase 61 U/L (38-126) 07/20/25 19:40
Lipase 143 U/L (23-300) 07/20/25 19:40
Data Reviewed
-
CT Scan: Report Reviewed by me
Lab Data: Labs Reviewed by me
Impression/Plan
-
Abdominal Pain, suspect related to intestinal gas and bloating
-Add simethicone PRN
-Give Dulcolax suppository tonight
-Start Senna-S 2 tabs BID
Calcified Appendiceal Mass, unclear if contributing to current abdominal symptoms
-Consult Surgery
Hyponatremia, mild suspect related to excess fluid intake with low solute intake
-Check urine sodium and urine osmo
-Add fluid restriction
Chronic Hypoxic Respiratory Failure
-Continue supplemental oxygen via nasal cannula
COPD, no acute exacerbation
-Continue Anoro and Trelegy
-Continue Zithromax
Anxiety
-Continue alprazolam, buspirone, fluoxetine
BPH
-Continue Flomax
DVT proph: SCDs
Code Status: Full Code
[2025-07-21 01:20] VITALS: BP 152/101
== END 2025-07-21 01:20 | disposition home or self-care (01) ==
LOC: EMR 19:17
PROVIDERS: Physician Assistant Medical; ATTENDING PHYSICIAN Hospitalist; EMERGENCY PHYSICIAN Student in an Organized Health Care Education/Training Program; FAMILY PHYSICIAN Physician Assistant
DX: K56.7 Ileus, unspecified (principal); K59.00 Constipation, unspecified
CPT/HCPCS: 99285; 96374; 96375; 74022; 74177; 80053; 81003; 81015; 83690; 83935; 84300; 85025; Q9967